=== PATIENT | male | born 1980 | race Caucasian/White ===

== ENCOUNTER 2023-11-17 01:05 | Emergency (ER) | payer BC, OTHER, SELFPAY ==
[2023-11-17 01:09] VITALS: BP 182/86; PULSE 95; TEMP 36.8; O2SAT 95; BMI 39.3
--- NOTE | 2023-11-17 01:17 | PC.NURSE ---
Pain to left arm from elbow to fingers, denies injury.
--- NOTE | 2023-11-17 01:49 | ED.GENADUL1 ---
HPI HPI - General Adult General Chief complaint: Extremity Injury, Lower Stated complaint: LT HAND/ARM PAIN Time Seen by Provider: 11/17/23 01:10 Source: patient Mode of arrival: walk-in Limitations: no limitations History of Present Illness HPI narrative: 43-year-old male to the emergency department chief complaint of pain in his left arm that radiates down to his hand and numbness in the tips of a few of his fingers. Symptoms started a week ago after he was pulling a heavy weight in his arm at work. No falls or injuries. No weakness. Was keeping him up tonight so he decided to come get it checked out. Related Data Home Medications ?Medication ?Instructions ?Recorded ?Confirmed No Known Home Medications 11/17/23 11/17/23 Allergies Allergy/AdvReac Type Severity Reaction Status Date / Time No Known Drug Allergies Allergy Verified 11/17/23 01:13 Opioid HPI Opioid Management Most Recent Opioid Data: No Data to Display Review of Systems ROS Status of ROS 10 or more systems reviewed and unremarkable except as noted in history and below Exam Narrative Exam Narrative: VITALS: I have reviewed the triage vital signs. GENERAL: Well developed, well appearing adult in no acute distress. NEURO: Alert and oriented. Moves all extremities. Face is symmetric and expressive. EYES: PERRL. No scleral icterus or conjunctival injection. No discharge. HENT: Normocephalic, atraumatic. Hearing is grossly intact. Nares grossly patent and without discharge. Mucous membranes moist. NECK: No JVD. Patient moves neck without restriction. Left upper Extremity: Radial Pulse is intact. Limb is similar color and temperature to the contralateral limb. Compartments soft. No edema. No ecchymosis. No laceration. No abrasion. No deformity. No bony tenderness. [employer] Specialist strength, finger abduction/adduction, wrist extension intact. Subjective sensation change to the third fourth and fifth fingertips. normal ROM of wrist, elbow, shoulder. SKIN: Warm and dry. Normal turgor. No rash or lesions appreciated. PSYCH: Mood, affect, and interaction is appropriate to the setting. Constitutional Vital Signs, click to edit/add: Last Vital Signs Temp 98.2 F 11/17/23 01:09 Pulse 95 H 11/17/23 01:09 Resp 18 11/17/23 01:09 BP 182/86 H 11/17/23 01:09 Pulse Ox 95 11/17/23 01:09 O2 Del Method Room Air 11/17/23 01:09 Course Vital Signs Vital signs: Vital Signs Temperature 98.2 F 11/17/23 01:09 Pulse Rate 95 H 11/17/23 01:09 Respiratory Rate 18 11/17/23 01:09 Blood Pressure 182/86 H 11/17/23 01:09 Pulse Oximetry 95 11/17/23 01:09 Oxygen Delivery Method Room Air 11/17/23 01:09 Temperature 98.2 F 11/17/23 01:09 Pulse Rate 95 H 11/17/23 01:09 Respiratory Rate 18 11/17/23 01:09 Blood Pressure 182/86 H 11/17/23 01:09 Pulse Oximetry 95 11/17/23 01:09 Oxygen Delivery Method Room Air 11/17/23 01:09 Medical Decision Making MDM Narrative Medical decision making narrative: Well-appearing male to the emergency department with chief complaint of 1 week of tingling in his third fourth and fifth fingertips as well as some pain radiating down his forearm. Happened after lifting at work something heavy. No other focal neurologic deficits. History and exam point to a peripheral lesion likely ulnar in nature. Discussed rest, will give a dose of Toradol here for pain. Kenalog injection reduce inflammation. Orthopedic referral. Patient agrees with this plan. Return precautions were discussed. All questions were answered. The patient was discharged home. Discharge Plan Discharge Stand Alone Forms: Work/School Release, Portal Instructions Chief Complaint: Extremity Injury, Lower Clinical Impression: Radicular pain in left arm Patient Disposition: Home, Self-Care Time of Disposition Decision: 01:49 Condition: Good Mode of Transportation: Private Vehicle Prescriptions / Home Meds: No Action No Known Home Medications Print Language: Slovak Instructions: Paresthesia (ED) Additional Instructions: Call the office of your primary care doctor to arrange for follow-up within the above-stated timeframe. Your ED visit was focused on your acute issue and does not replace primary care. You should review your labs, imaging, and diagnoses from this ED visit with your primary care physician. There may be non-emergent/ incidental findings that need further evaluation. You should review your vital signs including blood pressure with your PCP. If you were prescribed medications you should discuss possible side-effects and drug interactions with your pharmacist. Call 911 or go to the nearest Emergency Department if you develop any new or worsening symptoms. Referrals: Physician,Non-Staff, [Primary Care Provider] - 1 week Efra Elise MD [Physician] - 1 week
[2023-11-17] MEDS: KETOROLAC TROMETHAMINE 30 MG/ML VIAL 15 MG IM (02:05)
[2023-11-17] MEDS: TRIAMCINOLONE ACETONIDE 40 MG/ML VIAL IM (02:05)
== END 2023-11-17 02:17 | disposition home or self-care (01) ==
PROVIDERS: Emergency Provider Student in an Organized Health Care Education/Training Program
DX: M79.602 Pain in left arm (principal); R20.2 Paresthesia of skin
CPT/HCPCS: 96372; 99284; J1885; J3301

== ENCOUNTER 2023-11-21 21:55 | Emergency (ER) | payer OTHER, BC, SELFPAY ==
--- OUTSIDE RECORDS SUMMARY | 2023-11-21 22:03 | XMS_ITS | CCD ---
Author Organization [facility] Inform ion Partnership [facility] Care Team Providers Care Attorney Lawyer Name Role Phone MILAN TRAN Attending Unavailab Arabella Torres Attending Unava Milan Arora Attending Unavailable DR MARCOS NONE LISTED Primary Care Unavaila ble KELLIE KHALIL Consulting Unavailable KELLIE KHALIL Attending Unavailable KELLIE KHALIL Admitting Unavailable Meño Huerta Consulting Unavailable Allergies Allergy Classification Reported Allergen(s) Allergy Type Date of Onset Reaction(s) Facility (1 source) No Known Medication Allergies; Translations: [No Known Medication Allergies] Propensity to adverse reactions to drug (disorder) [facility] Repository Problems Active Problems Problem Classification Problem Date Documented Da te Episodic/Chronic Other upper respiratory infections (1 source) Acute upper respiratory infection, unspecified; Translations: [ACUTE UP RESPIRATORY INFECTION UNS] Onset: 08-06-2021 Episodic Substance-related disorders (1 source) Nicotine dependence, cigarettes, uncomplicated; Translations: [NICOTINE DEPEND CIGARETTES UNCOMP] Onset: 08-06-2021 Chronic Unclassified (2 sources) COUGH, UNSPECIFIED; Translations: [COUGH, UNSPECIFIED] Onset: 08-06-2021 Unclassified (1 source) CONTACT W/AND (SUSP) EXPOS COVID-19; Translations: [CONTACT W/AND (SUSP) EXPOS COVID-19] Onset: 08-06-2021 Past or Other Problems Problem Classification Problem Date Documented Da te Episodic/Chronic Unclassified (1 source) COUGH, UNSPECIFIED; Translations: [COUGH, UNSPECIFIED] Onset: 08-02-2021 Results Test Name Value Interpretation Reference Range Facility CBC AUTO DIFFon 08-02-2021 BASO # 0.1 103/ul Normal 0.0-0.1 [facility] Comment on above: Performed By: #### C BC #### [facility] [address] [place] [address] Dr. Joceline Rosales Basophils/100 WBC (Bld) 0.7 % Normal 0.2-2.0 [facility] Comment on above: Performed By: #### C BC #### [facility] [address] [place] [address] Dr. Joceline Rosales EO # 0.2 103/ul Normal 0.0-0.7 [facility] Comment on above: Performed By: #### C BC #### [facility] [address] [place] [address] Dr. Joceline Rosales Eosinophils/100 WBC (Bld) 1.7 % Normal 0.9-7.0 [facility] Comment on above: Performed By: #### C BC #### [facility] [address] [place] [address] Dr. Joceline Rosales Erythrocyte distribution width (RBC) [Ratio] 12.5 % Normal 11.0-15.0 [facility] Comment on above: Performed By: #### C BC #### [facility] [address] [place] [address] Dr. Joceline Rosales Hematocrit (Bld) [Volume fraction] 45.0 % Normal 42.0-54.0 [facility] Comment on above: Performed By: #### C BC #### [facility] [address] [place] [address] Dr. Joceline Rosales Hemoglobin (Bld) [Mass/Vol] 15.2 g/dL Normal 14.0-18.0 [facility] Comment on above: Performed By: #### C BC #### [facility] [address] [place] [address] Dr. Joceline Rosales IG # 0.01 10e3/ul Normal 0.00-0.03 [facility] Comment on above: Performed By: #### C BC #### [facility] [address] [place] [address] Dr. Joceline Rosales IG % 0.1 % Normal 0.0-0.5 [facility] Comment on above: Performed By: #### C BC #### [facility] [address] [place] [address] Dr. Joceline Rosales LYMPH # 1.6 103/ul Normal 1.2-3.8 [facility] Comment on above: Performed By: #### C BC #### [facility] [address] [place] [address] Dr. Joceline Rosales Lymphocytes/100 WBC (Bld) 18.7 % Critically low 20.5-60.0 [facility] Comment on above: Performed By: #### C BC #### [facility] [address] [place] [address] Dr. Joceline Rosales MANUAL DIFF REQ NO Normal [facility] Comment on above: Performed By: #### C BC #### [facility] [address] [place] [address] Dr. Joceline Rosales MCH (RBC) [Entitic mass] 30.3 pg Normal 25.9-34.0 [facility] Comment on above: Performed By: #### C BC #### [facility] [address] [place] [address] Dr. Joceline Rosales MCHC (RBC) [Mass/Vol] 33.8 g/dL Normal 29.9-35.2 [facility] Comment on above: Performed By: #### C BC #### [facility] [address] [place] [address] Dr. Joceline Rosales MCV (RBC) [Entitic vol] 89.6 fL Normal 80.0-94.0 [facility] Comment on above: Performed By: #### C BC #### [facility] [address] [place] [address] Dr. Joceline Rosales MONO # 1.1 103/ul Critically high 0.3-0.8 [facility] Comment on above: Performed By: #### C BC #### [facility] [address] [place] [address] Dr. Joceline Rosales Monocytes/100 WBC (Bld) 12.2 % Critically high 1.7-12.0 [facility] Comment on above: Performed By: #### C BC #### [facility] [address] [place] [address] Dr. Joceline Rosales NEUT # 5.7 103/ul Normal 1.4-6.5 [facility] Comment on above: Performed By: #### C BC #### [facility] [address] [place] [address] Dr. Joceline Rosales Neutrophils/100 WBC (Bld) 66.6 % Normal 43.0-75.0 [facility] Comment on above: Performed By: #### C BC #### [facility] [address] [place] [address] Dr. Joceline Rosales Platelet mean volume (Bld) [Entitic vol] 11.0 fL Normal 9.5-13.5 [facility] Comment on above: Performed By: #### C BC #### [facility] [address] [place] [address] Dr. Joceline Rosales PLT 214 103/ul Normal 150-450 [facility] Comment on above: Performed By: #### C BC #### [facility] [address] [place] [address] Dr. Joceline Rosales RBC 5.02 106/ul Normal 4.70-6.10 [facility] Comment on above: Performed By: #### C BC #### [facility] [address] [place] [address] Dr. Joceline Rosales WBC 8.6 103/ul Normal 4.0-11.0 [facility] Comment on above: Performed By: #### C BC #### [facility] [address] [place] [address] Dr. Joceline Rosales [facility]15 SARS-CoV-2 (COVID-19) RNA FAHAD+probe Ql (Unsp spec) Not detected Normal NOT DETECTED [facility] Comment on above: Result Comment: This test is not yet approved or cleared by the [place] FDA. When there are no FDA-approved or cleared tests available, and other criteria are met, FDA can make tests available under an emergency access mechanism called an Emergency Use Authorization (EUA). The EUA for this test is supported by the [facility] Provider of Health and Human Service's (HHS's) declaration that circumstances exist to justify the emergency use of in vitro diagnostics for the detection and/or diagnosis of the virus that causes COVID-19. This EUA will remain in effect (meaning this test can be used) for the duration of the COVID-19 declaration justifying emergency of IVDs, unless it is terminated or revoked by FDA (after which the test may no longer be used). When diagnostic testing is negative, the possibility of a false negative should be considered in the context of a patient's recent exposures and the presence of clinical signs and symptoms consistent with SARS-CoV-2. Performed By: #### C VDTB #### [facility] [address] [place] [address] Dr. Joceline Rosales PROF CHEM 8 (BAS METB)on Anion gap [Moles/Vol] 11.2 mmol/L Normal [facility] Comment on above: Performed By: #### B MP #### [facility] [address] [place] [address] Dr. Joceline Rosales Calcium [Mass/Vol] 8.5 mg/dL Normal 8.5-10.1 [facility] Comment on above: Performed By: #### B MP #### [facility] [address] [place] [address] Dr. Joceline Rosales Chloride [Moles/Vol] 107 mmol/L Normal 98-107 [facility] Comment on above: Performed By: #### B MP #### [facility] [address] [place] [address] Dr. Joceline Rosales CO2 [Moles/Vol] 24.9 mmol/L Normal 21.0-32.0 [facility] Comment on above: Performed By: #### B MP #### [facility] [address] [place] [address] Dr. Joceline Rosales Creatinine [Mass/Vol] 1.13 mg/dL Normal 0.70-1.30 [facility] Comment on above: Performed By: #### B MP #### [facility] [address] [place] [address] Dr. Joceline Rosales EGFR-AF PAKISTANI >60 Normal >=60 [facility] Comment on above: Performed By: #### B MP #### [facility] [address] [address] [address] Joceline Rosales EGFR-NON AF PAKISTANI >60 Normal >=60 [facility] Comment on above: Performed By: #### B MP #### [facility] [address] [address] [address] Joceline Rosales Glucose [Mass/Vol] 119 mg/dL Critically high 74-106 [facility] Comment on above: Performed By: #### B MP #### [facility] [address] [address] [address] Joceline Rosales Potassium [Moles/Vol] 4.1 mmol/L Normal 3.5-5.1 [facility] Comment on above: Performed By: #### B MP #### [facility] [address] [address] [address] Joceline Rosales Sodium [Moles/Vol] 139 mmol/L Normal 136-145 [facility] Comment on above: Performed By: #### B MP #### [facility] [address] [address] [address] Joceline Rosales Urea nitrogen [Mass/Vol] 10.0 mg/dL Normal 7.0-18.0 [facility] Comment on above: Performed By: #### B MP #### [facility] [address] [address] [address] Joceline Rosales Urea nitrogen/Creatinin e [Mass ratio] 8.8 mg/mg Normal [facility] Comment on above: Performed By: #### B MP #### [facility] [address] [address] [address] Joceline Rosales XR CHEST 1 Von 08-02-2021 XR CHEST 1 V EXAMINATION: XR CHES T 1 V HISTORY: Cough COMPARISON: None. TECHNIQUE: Portable chest FINDINGS: The lung parenchyma is free of consolidation or infiltrate. No pneumothorax or pleural effusion. The cardiac, mediastinal and hilar contours are normal. The visualized osseous structures exhibit no gross abnormality. IMPRESSION: No acute cardiopulmonary abnormality. Electronically authenticated by: MEÑO HUERTA Date: 2021-08-02 18:27 Normal [facility] ED Clinical Summaryon 2018 ED Clinical Summary [facility] [address] [place], [place] [id number] ED Clinical Summary Person Information Name: Armani Stevens/Henry Age: 38 Years : 1980 Sex: Male PCP: Marital Status: Race: White Ethnicity: Not or Language: Bruneian Visit Reason: Ankle pain-swelling; Extremities pain - swelling Acuity: 4 Enc Type: Emergency Med Service: Emergency Medicine Arrival: 11/22/2018 23:21:46 Discharge: 11/23/2018 00:39:00 LOS: 000 01:18 Checkin: 11/22/2018 23:21:46 Checkout: 11/23/2018 00:39:00 Dispo Type: Home or Self Care Address: [address] [facility] [address] Provider Notes: Diagnosis: 1:Right ankle injury; 2:Right ankle sprain Problems Active No Chronic Problems Smoking Status: Smoking Status 10 or more cigarettes (1/2 pack or more)/day in last 30 days Functional Status: Sensory Deficits: History of Falls: Mobility Assistance Prior to Admission: ADLs: Current Level of Assistance for Self-Care/Mobility: Cognitive Status: Allergies No Known Medication Allergies Laboratory or Other Results This Visit (last charted value for your 11/22/2018 visit) Diagnostic Radiology 11/23/2018 0:03 AM XR Ankle 3 Views Right: XR Ankle 3 Views Right Measurements: Height: Weight: Blood Pressure: /88 mmHg BMI: Procedures No Procedures Documented Immunizations No Immunizations Documented This Visit Final Med List: No Medications Documented Care Team Members: Attending Physician: Arabella Edwards CNP Consulting Physician: Referring Physician: Provider Role Assigned Unassigned Arabella Edwards CNP ED MidLevel 11/22/2018 23:24:22 Follow up: With: Address: When: [facility] Physical therapist in [place], [place] Comments: Follow up with Orthopedics of symptoms persist With: Address: When: Need a Doctor? Call the physician's referral line @ [phone] With: Address: When: Follow-up with your primary care provider in 2 to 3 days Discharge Orders: Air Cast ([facility]) 11/23/18 0:18:00 EDT, as needed, Right ankle injury Discharge Patient 11/23/18 0:31:00 EDT, Discharge to Home, Self Patient Education Information: ANKLE SPRAIN (Adult); Treating?Strains and Sprains [facility] Poison Help line: . [facility] Hotline: [place] Tobacco Quit Line: [facility] ([place], [place]) [address]: [phone] [facility] ([place], [place]) [address]: [phone] [facility] [address] [facility]. [place], [place]: [phone] Normal [facility] ED Note-Physicianon 11-24-19 ED Note-Physician Chief Complaint I tripped over my forks at work and twisted my right ankle History of Present Illness Patient is a 38-year-old male presents to ED for evaluation of right ankle pain. Patient presently was at work earlier today, when he tripped over a forklift, causing him to twist his right ankle and fall onto his right side. Patient denies head or neck injury, dizziness or LOC at the time of injury. Patient voiced concern as he fractured right ankle when he was 18 years old. Patient denies other injuries or concerns. Patient denies chronic medical condition. Review of Systems As reviewed in the HPI. All other systems reviewed are negative or normal. Physical Exam HEAD: [normocephalic, midface stable, no visible bleeding] NECK: [no midline vertebral tenderness to palpation, no hematoma or signs of soft tissue injury] PULMONARY: [lungs clear to auscultation, no asymmetry, even and unlabored, no accessory muscle use, no chest wall tenderness] CARDIOVASCULAR: [good peripheral perfusion, regular rate and rhythm] GASTROINTESTINAL: [soft, non-tender, no signs of abdominal wall trauma] MUSCULOSKELETAL: [normal gross range of motion of extremities, no deformity, no vertebral tenderness to palpation. Lateral aspect of right ankle tender to palpation, there is mild swelling, no crepitus and exam, no laxity on exam, limited range of motion due to pain, sternal resistance and strength distally, normal capillary refill, normal pedal pulse, sensation intact distally] BACK: [No midline thoracic or lumbar spine tenderness] LYMPHATICS: [no palpable lymphadenopathy, no edema] NEUROLOGIC: [GCS 15, no focal abnormality] PSYCHIATRIC: [linear thought process, normal mood/affect] Vitals & Measurements T: 37.1 ?C (Oral) RR: 16 BP: 128/88 SpO2: 96% Additional Vitals Peripheral Pulse Rate: 110 bpm High Procedure No qualifying data available. ASA Documentation Medical Decision Making XR Ankle 3 Views Right No acute fractures or dislocations. On evaluation, patient is alert, nontoxic in appearance, and not in acute distress. Patient is neurovascularly intact on exam. Patient is provided with Villarreal wrap, air cast, and crutches to use as needed. He may follow up with orthopedics if symptoms persist, contact information provided. Advised to take Tylenol and/or ibuprofen as needed for pain. Advised, ice, compression, and elevation treatment at home advised. Follow-up with primary care provider in 3-5 days. Patient advised to return to the ED for new concerning symptoms or if symptoms worsen despite outpatient treatment. The results of pertinent diagnostic studies and exam findings were discussed. The patient?s provisional diagnosis and plan of care were discussed with the patient. The patient expressed understanding of the diagnosis and plan. The nurse was instructed to provide written instructions and appropriate follow-up information. The patient understands their need and responsibility to obtain additional follow-up as instructed. The risks of medications administered and prescribed were discussed with the patient. Reexamination/Reevaluat ion Patient is alert, not in acute distress and hemodynamically stable at discharge. Assessment/Plan 1. Right ankle injury Ordered: Air Cast ([facility]) 2. Right ankle sprain Ordered: Air Cast ([facility]) Orders: Discharge Patient Problem List/Past Medical History Ongoing No chronic problems Historical No qualifying data Procedure/Surgical History denies Medications Home No active home medications Inpatient No active inpatient medications Prescriptions No active Prescriptions Allergies No Known Medication Allergies Social History Alcohol Past Never Substance Abuse Denies All Tobacco 10 or more cigarettes (1/2 pack or more)/day in last 30 days Use:. 10 or more cigarettes (1/2 pack or more)/day in last 30 days Use:. 5-9 cigarettes (between 1/4 to 1/2 pack)/day in last 30 days Use:. 10 or more cigarettes (1/2 pack or more)/day in last 30 days Use:. Current every day smoker, Cigarettes, 6 per day. Cigarettes Family History Family history is unknown Diagnostic Results XRay XR Ankle 3 Views Right 11/23/18 00:12:33 IMPRESSION: No acute fractures or dislocations. Signed By: Claudy Sigala MD Computerized Tomagraphy No qualifying data available (CT) Ultrasound No qualifying data available (Ultrasound) Magnetic Resonance Imaging No qualifying data available (MRI) Electronically signed by ___ EdwardsArabella reid CNP 11/23/18 02:14 EDT Normal [facility] XR Ankle 3 Views Righton XR Ankle 3 Views Right CLINICAL HISTORY: Work injury, pain, limited range of motion. RIGHT ANKLE: 11/23/2018. COMPARISON: None. FINDINGS: 3 views are provided which demonstrate normally aligned ankle mortise without definite fractures or dislocations. Base of the fifth metatarsal appears intact. There is no significant soft tissue swelling, calcifications or radiopaque foreign bodies. There are minimal enthesophytes at the insertion site of the plantar aponeurosis, Achilles tendon. IMPRESSION: No acute fractures or dislocations. Final Dictated by: Claudy Sigala MD Dictated DT/TM: 11/23/2018 0:12 am Signed by: Claudy Sigala MD Signed (Electronic Signature): 11/23/2018 0:21 am Transcribed DT/TM: 11/23/2018 0:20 (If Report Is Signed, Electronically Signed in Other Vendor System) Normal [facility] .eGFRon 10-23-2018 eGFR AA >60 Normal >=60 [facility] Comment on above: Result Comment: Resu lt = 0-14.9 mL/min/1.73 m2 Kidney failure or Dialysis Result = 15-29 mL/min/1.73 m2 Severe decrease in GFR Result = 30-59 mL/min/1.73 m2 Moderate decrease in GFR Result >= 60 mL/min/1.73 m2 Normal or increased GFR Performed By: #### E GFR ####[address] [address] eGFR Non-AA >60 Normal >=60 [facility] Comment on above: Result Comment: Resu lt = 0-14.9 mL/min/1.73 m2 Kidney failure or Dialysis Result = 15-29 mL/min/1.73 m2 Severe decrease in GFR Result = 30-59 mL/min/1.73 m2 Moderate decrease in GFR Result >= 60 mL/min/1.73 m2 Normal or increased GFR Chronic kidney disease is defined as either kidney damage or GFR < 60 mL/min/1.73 m2 for >= 3 months. Kidney damage is defined as pathologic abnormalities or markers of damage including abnormalities in blood or urine tests or imaging studies. This GFR is NOT used for medication dosing. Performed By: #### E GFR ####[address] [address] AMI 2Hron 10-23-2018 2 Hour Myoglobin 24.0 ng/mL Normal 17.4-105.7 [facility] Comment on above: Performed By: #### A MI2 ####[address] [address] Troponin I.cardiac [Mass/Vol] ng/mL Normal 0.00-0.03 [facility] Comment on above: Result Comment: An i ncreased Troponin-I value, in the absence of myocardial ischemia, may indicate other etiologies of cardiac damage. Performed By: #### A MI2 ####[address] [address] AMI Initon 10-23-2018 Initial Myoglobin 29.0 ng/mL Normal 17.4-105.7 [facility] Comment on above: Performed By: #### A MI1 ####[address] [address] Troponin I.cardiac [Mass/Vol] ng/mL Normal 0.00-0.03 [facility] Comment on above: Result Comment: An i ncreased Troponin-I value, in the absence of myocardial ischemia, may indicate other etiologies of cardiac damage. Performed By: #### A MI1 ####[address] [address] Basic Metabolic Profileon Anion gap [Moles/Vol] 13 mmol/L Normal 7-17 [facility] Comment on above: Performed By: #### C [id number] ####[address] [address] Calcium [Mass/Vol] 8.9 mg/dL Normal 8.5-10.3 [facility] Comment on above: Performed By: #### C [id number] ####[address] [address] Chloride [Moles/Vol] 104 mmol/L Normal 98-110 [facility] Comment on above: Performed By: #### C [id number] ####[address] [address] CO2 [Moles/Vol] 22 mmol/L Normal 22-32 [facility] Comment on above: Performed By: #### C [id number] ####[address] [address] Creatinine [Mass/Vol] 1.13 mg/dL Normal 0.61-1.24 [facility] Comment on above: Performed By: #### C [id number] ####[address] [address] Glucose [Mass/Vol] 95 mg/dL Normal 74-118 [facility] Comment on above: Performed By: #### C [id number] ####[address] [address] Potassium [Moles/Vol] 3.9 mmol/L Normal 3.4-4.8 [facility] Comment on above: Performed By: #### C [id number] ####[address] [address] Sodium [Moles/Vol] 135 mmol/L Normal 133-142 [facility] Comment on above: Performed By: #### C [id number] ####[address] [address] Urea nitrogen [Mass/Vol] 15 mg/dL Normal 8-26 [facility] Comment on above: Performed By: #### C [id number] ####[address] [address] Urea nitrogen/Creatinin e [Mass ratio] 13.3 mg/mg Normal 10.0-20.0 [facility] Comment on above: Performed By: #### C [id number] ####[address] [address] CBC w/ Diffon 10-23-2018 Erythrocyte distribution width (RBC) [Ratio] 12.9 % Normal 11.6-14.8 [facility] Comment on above: Performed By: #### C BC ####[address] [address] Hematocrit (Bld) [Volume fraction] 43.0 % Normal 41.0-53.0 [facility] Comment on above: Performed By: #### C BC ####[address] [address] Hemoglobin (Bld) [Mass/Vol] 15.2 g/dL Normal 13.5-17.5 [facility] Comment on above: Performed By: #### C BC ####[address] [address] MCH (RBC) [Entitic mass] 31.1 pg Normal 27.0-35.0 [facility] Comment on above: Performed By: #### C BC ####[address] [address] MCHC (RBC) [Mass/Vol] 35.3 % Normal 31.0-37.0 [facility] Comment on above: Performed By: #### C BC ####[address] [address] MCV (RBC) [Entitic vol] 88.1 fL Normal 80.0-100.0 [facility] Comment on above: Performed By: #### C BC ####[address] [address] Platelet mean volume (Bld) [Entitic vol] 8.9 fL Normal 6.7-10.6 [facility] Comment on above: Performed By: #### C BC ####[address] [address] Platelets (Bld) [#/Vol] 220 x10*3/mcL Normal 150-350 [facility] Comment on above: Performed By: #### C BC ####[address] [address] RBC (Bld) [#/Vol] 4.88 x10*6/mcL Normal 4.30-5.80 [facility] Comment on above: Performed By: #### C BC ####[address] [address] WBC (Bld) [#/Vol] 8.8 x10*3/mcL Normal 4.5-11.0 [facility] Comment on above: Performed By: #### C BC ####[address] [address] D-Dimeron 10-23-2018 Fibrin D-dimer FEU IA (Bld) [Mass/Vol] 0.27 mg/L feu Normal 0.00-0.49 [facility] Comment on above: Result Comment: Resu lts of the D-Dimer test should always be interpreted in conjunction with the patient's medical history, clinical presentation, and other findings. Results <0.5 mg/L are considered NEGATIVE for VTE. Results >= 0.5 mg/L require further clinical evaluation. Levels of triglyceride up to 600 mg/dl do not interfere with this D-Dimer assay. Performed By: #### D KAY ####[address] [address] Diff Autoon 10-23-2018 Baso Absolute 0.1 x10*3/mcL Normal 0.0-0.2 [facility] Comment on above: Performed By: #### . Automated Diff #### [address] [address] Basophils/100 WBC (Bld) 0.8 % Normal 0.0-1.2 [facility] Comment on above: Performed By: #### . Automated Diff #### [address] [address] Eos Absolute 0.3 x10*3/mcL Normal 0.0-0.4 [facility] Comment on above: Performed By: #### . Automated Diff #### [address] [address] Eosinophils/100 WBC (Bld) 3.7 % Normal 0.0-6.1 [facility] Comment on above: Performed By: #### . Automated Diff #### [address] [address] Lymphocytes (Bld) [#/Vol] 2.6 x10*3/mcL Normal 1.0-4.8 [facility] Comment on above: Performed By: #### . Automated Diff #### [address] [address] Lymphocytes/100 WBC (Bld) 29.3 % Normal 27.2-40.8 [facility] Comment on above: Performed By: #### . Automated Diff #### [address] [address] Bell Absolute 0.7 x10*3/mcL Normal 0.3-1.1 [facility] Comment on above: Performed By: #### . Automated Diff #### [address] [address] Monocytes/100 WBC (Bld) 7.7 % Normal 4.7-13.9 [facility] Comment on above: Performed By: #### . Automated Diff #### [address] [address] Neutro Absolute 5.2 x10*3/mcL Normal 1.8-7.7 [facility] Comment on above: Performed By: #### . Automated Diff #### [address] [id number] Neutro Auto 58.5 % Normal 47.2-70.8 [facility] Comment on above: Performed By: #### . Automated Diff #### [address] [id number] ED Clinical Summaryon 2018 [place] [address] ED Clinical Summary Person Information Name: Armani Stevens [place]/[facility] Age: 38 Years : 1980 Sex: Male PCP: Marital Status: Race: White Ethnicity: Not or Language: Bruneian Visit Reason: Chest pain; Chest pain - Cardiac Acuity: 2 Enc Type: Emergency Med Service: Emergency Medicine Arrival: 10/22/2018 23:22:20 Discharge: 10/23/2018 02:21:00 LOS: 000 02:59 Checkin: 10/22/2018 23:22:20 Checkout: 10/23/2018 02:21:00 Dispo Type: Home or Self Care Address: [address] [id number] Provider Notes: Diagnosis: 1:Acute chest pain; 2:Pleurisy Problems Active No Chronic Problems Smoking Status: Smoking Status 10 or more cigarettes (1/2 pack or more)/day in last 30 days Functional Status: Sensory Deficits: History of Falls: Mobility Assistance Prior to Admission: ADLs: Current Level of Assistance for Self-Care/Mobility: Cognitive Status: Allergies No Known Medication Allergies Laboratory or Other Results This Visit (last charted value for your 10/22/2018 visit) Hematology 10/22/2018 11:50 PM WBC: 8.8 x10 RBC: 4.88 x10 Neutro Auto: 58.5 % -- Normal range between ( 47.2 and 70.8 ) Lymph Auto: 29.3 % -- Normal range between ( 27.2 and 40.8 ) Bell Auto: 7.7 % -- Normal range between ( 4.7 and 13.9 ) Eos Auto: 3.7 % -- Normal range between ( 0.0 and 6.1 ) Basophil Auto: 0.8 % -- Normal range between ( 0.0 and 1.2 ) Baso Absolute: 0.1 x10 MCV: 88.1 fL -- Normal range between ( 80.0 and 100.0 ) MCHC: 35.3 % -- Normal range between ( 31.0 and 37.0 ) Lymph Absolute: 2.6 x10 Hct: 43.0 % -- Normal range between ( 41.0 and 53.0 ) Bell Absolute: 0.7 x10 MCH: 31.1 pg -- Normal range between ( 27.0 and 35.0 ) Neutro Absolute: 5.2 x10 Hgb: 15.2 g/dL -- Normal range between ( 13.5 and 17.5 ) Mean Platelet Volume: 8.9 fL -- Normal range between ( 6.7 and 10.6 ) Platelet: 220 x10 Eos Absolute: 0.3 x10 RDW: 12.9 % -- Normal range between ( 11.6 and 14.8 ) Coagulation 10/22/2018 11:50 PM PT: 9.8 seconds -- Normal range between ( 9.2 and 11.7 ) INR: 0.9 ratio PTT: 24.3 seconds -- Normal range between ( 20.6 and 28.0 ) D-Dimer: 0.27 mg/L feu -- Normal range between ( 0.00 and 0.49 ) Chemistry 10/23/2018 1:12 AM 2 Hour Troponin: <0.03 ng/mL -- Normal range between ( 0.00 and 0.03 ) 2 Hour Myoglobin: 24.0 ng/mL -- Normal range between ( 17.4 and 105.7 ) 10/22/2018 11:50 PM Creatinine Lvl: 1.13 mg/dL -- Normal range between ( 0.61 and 1.24 ) BUN: 15 mg/dL -- Normal range between ( 8 and 26 ) Glucose Lvl: 95 mg/dL -- Normal range between ( 74 and 118 ) Potassium Lvl: 3.9 mmol/L -- Normal range between ( 3.4 and 4.8 ) AST: 30 IU/L -- Normal range between ( 15 and 41 ) ALT: 44 IU/L -- Normal range between ( 17 and 63 ) Sodium Lvl: 135 mmol/L -- Normal range between ( 133 and 142 ) Lipase Lvl: 46 IU/L -- Normal range between ( 22 and 51 ) Bili Indirect: 0.2 mg/dL -- Normal range between ( 0.0 and 1.0 ) Calcium Lvl: 8.9 mg/dL -- Normal range between ( 8.5 and 10.3 ) Albumin Lvl: 3.8 g/dL -- Normal range between ( 3.2 and 4.9 ) Total Protein: 6.6 g/dL -- Normal range between ( 6.5 and 8.1 ) Bili Total: 0.3 mg/dL -- Normal range between ( 0.3 and 1.2 ) Alk Phos: 86 IU/L -- Normal range between ( 32 and 91 ) Bili Direct: 0.1 mg/dL -- Normal range between ( 0.1 and 0.5 ) Chloride: 104 mmol/L -- Normal range between ( 98 and 110 ) CO2: 22 mmol/L -- Normal range between ( 22 and 32 ) Anion Gap: 13 -- Normal range between ( 7 and 17 ) eGFR Non-AA: >60 mL/min/1.73m? eGFR AA: >60 mL/min/1.73m? BUN Crea Ratio: 13.3 -- Normal range between ( 10.0 and 20.0 ) Initial Troponin: <0.03 ng/mL -- Normal range between ( 0.00 and 0.03 ) Initial Myoglobin: 29.0 ng/mL -- Normal range between ( 17.4 and 105.7 ) Diagnostic Radiology 10/22/2018 11:49 PM XR Chest 1 View: XR Chest 1 View Measurements: Height: Weight: Blood Pressure: /85 mmHg BMI: Procedures No Procedures Documented Immunizations No Immunizations Documented This Visit Final Med List: No Medications Documented Care Team Members: Attending Physician: Milan Tavarez MD Consulting Physician: Referring Physician: Provider Role Assigned Unassigned Jair Marquez ED Nurse 10/22/2018 23:30:05 Milan Tavarez MD ED Provider 10/22/2018 23:41:12 Follow up: With: Address: When: Your Primary Care Physician Comments: Please call your primary care physician and schedule follow-up within the next 24-48 hours Please return to the emergency department immediately if pain returns Please take daily aspirin until follow-up, avoid strenuous exercise or exertion With: Address: When: This Emergency Department Comments: If symptoms worsen Discharge Orders: Discharge Patient 10/23/18 2:16:00 EDT, Discharge to Home, Self Patient Education Information: CHEST PAIN, Uncertain Cause; PLEURISY [facility] Poison Help line: . [facility] Hotline: [place] Tobacco Quit Line: [place], [place]) [address]: [phone] [place], [place]) [address]: [phone] [facility] [address] [place], [place]: [phone] [facility] ED Note-Physicianon 10-24-19 ED Note-Physician Chief Complaint Chest pain that onset 4.5 hours ago while at work. Pt denies any cardiac hx but reports family hx History of Present Illness Patient is a 38 year male presents for evaluation of chest discomfort. 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 Initially, patient states exacerbating factors include deep inspiration. He denies any history of cardiac disease. He denies any history of DVT or pulmonary embolism. Denies any LE pain or swelling. He denies any recent infectious symptoms including fevers or chills. Over the preceding to 3 months, patient has not had any sort of chest discomfort including exertional chest pain, dyspnea, diaphoresis. Patient denies any palpitations. Respiratory, patient is a smoker. He denies any history of insulin-dependent diabetes, hyperlipidemia, hypertension. Patient does have a family history of coronary artery disease in his father. Review of Systems GENERAL: [Negative for weakness, malaise] EYES: [Negative for injury, pain, redness, discharge] ENT: [Negative for injury, pain , sore throat and discharge] NECK: [Negative for injury, pain, swelling, and stiffness] CARDIOVASCULAR: [Positive for chest pain, pleurisy. Negative for palpitations] RESPIRATORY: [Negative for shortness of breath, cough, wheezing, and pleuritic chest pain] ABDOMEN/GI: [Negative for pain, nausea, vomiting] BACK: [Negative for injury or bruising] : [Negative for injury, bleeding, discharge, frequency, hematuria, urgency] MUSCULOSKELETAL: [Negative for arthralgias, injury and deformity] SKIN: [Negative for injury, rash, discoloration] NEURO: [Negative for focal weakness, numbness, tingling, and seizure] Physical Exam CONSTITUTIONAL: [well appearing in no acute distress] SKIN: [Warm, dry, and intact without rash] EYES: [extraocular movements are grossly intact, clear conjunctiva] HENT: [Normocephalic, atraumatic, moist mucus membranes] NECK: [no obvious swelling, normal range of motion] PULMONARY: [normal chest rise and fall, no respiratory distress or stridor CARDIOVASCULAR: [regular rate, distal extremities are warm and well perfused] GASTROINSTESTINAL: [nondistended, non-tender] NEUROLOGIC: [normal speech, moves all extremities] MUSCULOSKELETAL: [No lower extremity edema. Negative Homans test bilaterally. no gross deformities, atraumatic] PSYCHIATRIC: [normal mood and affect] Vitals & Measurements T: 37.0 ?C (Oral) HR: 67 (Monitored) RR: 16 BP: 126/85 SpO2: 97% Additional Vitals Peripheral Pulse Rate: 73 bpm Procedure No qualifying data available. ASA Documentation Medical Decision Making Patient is a 38-year-old male presents for evaluation of chest discomfort. Labs were obtained. 2 sets troponins are both within normal limits. Patient does note pleuritic component to chest discomfort. D-dimer was obtained and is within normal limits. Patient is not hypoxic, tachycardic. Patient has no clinical signs of DVT to the lower extremities. Remainder of labs are unremarkable. Regarding patient's risk factors, patient does have some risk factors including family history, smoking. Patient's heart score is low, less than 3. Options were discussed with patient. Patient was offered admission to hospital for uncontrolled pain, cardiac workup. He is declining. I did advise the patient started daily aspirin, avoid strenuous exercise. He should return immediately to the emergency department if he develops recurrent chest discomfort. Otherwise, NSAIDs at home. He should follow up his primary care physician within 48 hours for reevaluation and to determine need and schedule additional cardiac workup. Assessment/Plan 1. Acute chest pain 2. Pleurisy Orders: Discharge Patient Problem List/Past Medical History Ongoing No chronic problems Historical No qualifying data Procedure/Surgical History denies Medications Home No active home medications Inpatient No active inpatient medications Prescriptions No active Prescriptions Allergies No Known Medication Allergies Social History Alcohol Past Never Substance Abuse Denies All Tobacco 10 or more cigarettes (1/2 pack or more)/day in last 30 days Use:. 5-9 cigarettes (between 1/4 to 1/2 pack)/day in last 30 days Use:. 10 or more cigarettes (1/2 pack or more)/day in last 30 days Use:. Current every day smoker, Cigarettes, 6 per day. Cigarettes Family History Family history is unknown Lab Results Automated Hematology LATEST RESULTS HISTORICAL RESULTS WBC 10/22/18 23:50 8.8 09/20/18 8.7 RBC 10/22/18 23:50 4.88 09/20/18 4.93 Hgb 10/22/18 23:50 15.2 09/20/18 15.4 Hct 10/22/18 23:50 43.0 09/20/18 43.5 MCV 10/22/18 23:50 88.1 09/20/18 88.3 MCH 10/22/18 23:50 31.1 09/20/18 31.2 MCHC 10/22/18 23:50 35.3 09/20/18 35.3 RDW 10/22/18 23:50 12.9 09/20/18 12.9 Platelet 10/22/18 23:50 220 09/20/18 222 Mean Platelet Volume 10/22/18 23:50 8.9 09/20/18 9.5 Neutro Auto 10/22/18 23:50 58.5 09/20/18 57.4 Lymph Auto 10/22/18 23:50 29.3 09/20/18 29.8 Bell Auto 10/22/18 23:50 7.7 09/20/18 7.7 Eos Auto 10/22/18 23:50 3.7 09/20/18 4.4 Basophil Auto 10/22/18 23:50 0.8 09/20/18 0.7 Neutro Absolute 10/22/18 23:50 5.2 09/20/18 5.0 Lymph Absolute 10/22/18 23:50 2.6 09/20/18 2.6 Bell Absolute 10/22/18 23:50 0.7 09/20/18 0.7 Eos Absolute 10/22/18 23:50 0.3 09/20/18 0.4 Baso Absolute 10/22/18 23:50 0.1 09/20/18 0.1 Coagulation LATEST RESULTS PT 10/22/18 23:50 9.8 INR 10/22/18 23:50 0.9 PTT 10/22/18 23:50 24.3 D-Dimer 10/22/18 23:50 0.27 Routine Chemistry LATEST RESULTS HISTORICAL RESULTS Sodium Lvl 10/22/18 23:50 135 09/20/18 136 Potassium Lvl 10/22/18 23:50 3.9 09/20/18 3.7 Chloride 10/22/18 23:50 104 09/20/18 104 CO2 10/22/18 23:50 22 09/20/18 22 Anion Gap 10/22/18 23:50 13 09/20/18 14 Glucose Lvl 10/22/18 23:50 95 09/20/18 104 BUN 10/22/18 23:50 15 09/20/18 15 Creatinine Lvl 10/22/18 23:50 1.13 09/20/18 1.11 eGFR AA 10/22/18 23:50 >60 09/20/18 >60 eGFR Non-AA 10/22/18 23:50 >60 09/20/18 >60 BUN Crea Ratio 10/22/18 23:50 13.3 09/20/18 13.5 Bili Total 10/22/18 23:50 0.3 Bili Direct 10/22/18 23:50 0.1 Bili Indirect 10/22/18 23:50 0.2 Alk Phos 10/22/18 23:50 86 AST 10/22/18 23:50 30 ALT 10/22/18 23:50 44 Total Protein 10/22/18 23:50 6.6 Albumin Lvl 10/22/18 23:50 3.8 Calcium Lvl 10/22/18 23:50 8.9 09/20/18 9.0 Lipase Lvl 10/22/18 23:50 46 Cardiac Isoenzymes LATEST RESULTS Initial Myoglobin 10/22/18 23:50 29.0 Initial Troponin 10/22/18 23:50 <0.03 2 Hour Myoglobin 10/23/18 01:12 24.0 2 Hour Troponin 10/23/18 01:12 <0.03 Diagnostic Results XRay XR Chest 1 View 10/22/18 23:58:37 IMPRESSION: 1. No acute cardiopulmonary abnormality. 2. Low lung volumes. Signed By: Carlos Enrique HENAO, Annalise Kennedy Computerized Tomagraphy No qualifying data available (CT) Ultrasound No qualifying data available (Ultrasound) Magnetic Resonance Imaging No qualifying data available (MRI) Electronically signed by ___ Milan Tavarez MD 10/23/18 07:01 EDT Normal [facility] Hep Func Panelon 10-23-2018 Albumin [Mass/Vol] 3.8 g/dL Normal 3.2-4.9 [facility] Comment on above: Result Comment: [facility] Laboratory updated the methodology used for albumin testing on 10/22/17. Albumin measurement was performed using a bromcresol purple dye-binding assay. Performed By: #### L IVER ####[address] [address] Alk Phos 86 IU/L Normal 32-91 [facility] Comment on above: Performed By: #### L IVER ####[address] [address] ALT [Catalytic activity/Vol] 44 U/L Normal 17-63 [facility] Comment on above: Performed By: #### L IVER ####[address] [place] [address] AST [Catalytic activity/Vol] 30 U/L Normal 15-41 [facility] Comment on above: Performed By: #### L IVER ####[address] [address] Bili Direct 0.1 mg/dL Normal 0.1-0.5 [facility] Comment on above: Performed By: #### L IVER ####[address] [address] Bili Indirect 0.2 mg/dL Normal 0.0-1.0 [facility] Comment on above: Performed By: #### L IVER ####[address] [address] Bili Total 0.3 mg/dL Normal 0.3-1.2 [facility] Comment on above: Performed By: #### L IVER ####[address] [address] Protein [Mass/Vol] 6.6 g/dL Normal 6.5-8.1 [facility] Comment on above: Performed By: #### L IVER ####[address] [address] Lipaseon 10-23-2018 Lipase Lvl 46 IU/L Normal 22-51 [facility] Comment on above: Performed By: #### L IP ####[address] [address] PTon 10-23-2018 INR Coag (PPP) [Relative time] 0.9 {INR} Normal <=3.5 [facility] Comment on above: Result Comment: INR has no normal range. INR Therapeutic range is: 2.0-3.0 (AF, CVA, TIAs, DVT prophylaxis, acute DVT) 2.5-3.5 ([facility] heart valves, recurrent thrombosis/emboli) Performed By: #### P TINR ####[address] [address] PT Coag (PPP) [Time] 9.8 s Normal 9.2-11.7 [facility] Comment on above: Performed By: #### P TINR ####[address] [address] PTTon 10-23-2018 aPTT Coag (Bld) [Time] 24.3 s Normal 20.6-28.0 [facility] Comment on above: Performed By: #### P TT ####[address] [address] XR Chest 1 Viewon 10-23-2018 XR Chest 1 View EXAM: XR Chest 1 Vie w HISTORY: Chest pain COMPARISON: None. FINDINGS: Single AP upright view is submitted.. The cardiomediastinal silhouette appears mildly enlarged likely due to magnification and low lung volumes. Lungs, pulmonary vasculature, and pleural spaces are normal. No acute osseous lesion is present. IMPRESSION: 1. No acute cardiopulmonary abnormality. 2. Low lung volumes. Final Dictated by: Annalise Monaco MD Dictated DT/TM: 10/22/2018 11:58 pm Signed by: Annalise Monaco MD Signed (Electronic Signature): 10/22/2018 11:59 pm (If Report Is Signed, Electronically Signed in Other Vendor System) Normal [facility] .eGFRon 09-21-2018 eGFR Non-AA >60 Normal >=60 [facility] Comment on above: Result Comment: Resu lt = 0-14.9 mL/min/1.73 m2 Kidney failure or Dialysis Result = 15-29 mL/min/1.73 m2 Severe decrease in GFR Result = 30-59 mL/min/1.73 m2 Moderate decrease in GFR Result >= 60 mL/min/1.73 m2 Normal or increased GFR Chronic kidney disease is defined as either kidney damage or GFR < 60 mL/min/1.73 m2 for >= 3 months. Kidney damage is defined as pathologic abnormalities or markers of damage including abnormalities in blood or urine tests or imaging studies. This GFR is NOT used for medication dosing. Performed By: #### E GFR #### [facility] [address] [place] [address] eGFR AA >60 Normal >=60 [facility] Comment on above: Result Comment: Resu lt = 0-14.9 mL/min/1.73 m2 Kidney failure or Dialysis Result = 15-29 mL/min/1.73 m2 Severe decrease in GFR Result = 30-59 mL/min/1.73 m2 Moderate decrease in GFR Result >= 60 mL/min/1.73 m2 Normal or increased GFR Performed By: #### E GFR #### [address] [address] Basic Metabolic Profileon Anion gap [Moles/Vol] 14 mmol/L Normal 7-17 [facility] Comment on above: Performed By: #### C [id number] #### [address] [address] Calcium [Mass/Vol] 9.0 mg/dL Normal 8.5-10.3 [facility] Comment on above: Performed By: #### C [id number] #### [address] [address] Chloride [Moles/Vol] 104 mmol/L Normal 98-110 [facility] Comment on above: Performed By: #### C [id number] #### [address] [address] CO2 [Moles/Vol] 22 mmol/L Normal 22-32 [facility] Comment on above: Performed By: #### C [id number] #### [address] [address] Creatinine [Mass/Vol] 1.11 mg/dL Normal 0.61-1.24 [facility] Comment on above: Performed By: #### C [id number] #### [address] [address] Glucose [Mass/Vol] 104 mg/dL Normal 74-118 [facility] Comment on above: Performed By: #### C [id number] #### [address] [address] Potassium [Moles/Vol] 3.7 mmol/L Normal 3.4-4.8 [facility] Comment on above: Performed By: #### C [id number] #### [address] [address] Sodium [Moles/Vol] 136 mmol/L Normal 133-142 [facility] Comment on above: Performed By: #### C [id number] #### [address] [address] Urea nitrogen [Mass/Vol] 15 mg/dL Normal 8-26 [facility] Comment on above: Performed By: #### C [id number] #### [address] [address] Urea nitrogen/Creatinin e [Mass ratio] 13.5 mg/mg Normal 10.0-20.0 [facility] Comment on above: Performed By: #### C [id number] #### [address] [address] CBC w/ Diffon 09-21-2018 Erythrocyte distribution width (RBC) [Ratio] 12.9 % Normal 11.6-14.8 [facility] Comment on above: Performed By: #### C BC #### [address] [address] Hematocrit (Bld) [Volume fraction] 43.5 % Normal 41.0-53.0 [facility] Comment on above: Performed By: #### C BC #### [address] [address] Hemoglobin (Bld) [Mass/Vol] 15.4 g/dL Normal 13.5-17.5 [facility] Comment on above: Performed By: #### C BC #### [address] [address] MCH (RBC) [Entitic mass] 31.2 pg Normal 27.0-35.0 [facility] Comment on above: Performed By: #### C BC #### [address] [address] MCHC (RBC) [Mass/Vol] 35.3 % Normal 31.0-37.0 [facility] Comment on above: Performed By: #### C BC #### [address] [address] MCV (RBC) [Entitic vol] 88.3 fL Normal 80.0-100.0 [facility] Comment on above: Performed By: #### C BC #### [address] [address] Platelet mean volume (Bld) [Entitic vol] 9.5 fL Normal 6.7-10.6 [facility] Comment on above: Performed By: #### C BC #### [address] [address] Platelets (Bld) [#/Vol] 222 x10*3/mcL Normal 150-350 [facility] Comment on above: Performed By: #### C BC #### [address] [address] RBC (Bld) [#/Vol] 4.93 x10*6/mcL Normal 4.30-5.80 [facility] Comment on above: Performed By: #### C BC #### [address] [address] WBC (Bld) [#/Vol] 8.7 x10*3/mcL Normal 4.5-11.0 [facility] Comment on above: Performed By: #### C BC #### [address] [address] Diff Autoon 09-21-2018 Baso Absolute 0.1 x10*3/mcL Normal 0.0-0.2 [facility] Comment on above: Performed By: #### . Automated Diff #### [address] [address] Basophils/100 WBC (Bld) 0.7 % Normal 0.0-1.2 [facility] Comment on above: Performed By: #### . Automated Diff #### [address] [address] Eos Absolute 0.4 x10*3/mcL Normal 0.0-0.4 [facility] Comment on above: Performed By: #### . Automated Diff #### [address] [address] Eosinophils/100 WBC (Bld) 4.4 % Normal 0.0-6.1 [facility] Comment on above: Performed By: #### . Automated Diff #### [address] [address] Lymphocytes (Bld) [#/Vol] 2.6 x10*3/mcL Normal 1.0-4.8 [facility] Comment on above: Performed By: #### . Automated Diff #### [address] [address] Lymphocytes/100 WBC (Bld) 29.8 % Normal 27.2-40.8 [facility] Comment on above: Performed By: #### . Automated Diff #### [address] [address] Bell Absolute 0.7 x10*3/mcL Normal 0.3-1.1 [facility] Comment on above: Performed By: #### . Automated Diff #### [address] [address] Monocytes/100 WBC (Bld) 7.7 % Normal 4.7-13.9 [facility] Comment on above: Performed By: #### . Automated Diff #### [address] [address] Neutro Absolute 5.0 x10*3/mcL Normal 1.8-7.7 [facility] Comment on above: Performed By: #### . Automated Diff #### [address] [address] Neutro Auto 57.4 % Normal 47.2-70.8 [facility] Comment on above: Performed By: #### . Automated Diff #### [address] [address] ED Clinical Summaryon 2018 ED Clinical Summary [address] [id number] ED Clinical Summary Person Information Name: Armani Stevens [place] Age: 38 Years : 1980 Sex: Male PCP: Marital Status: Single Race: White Ethnicity: Not or Language: Bruneian Visit Reason: Dizziness; Dizziness Acuity: 3 Enc Type: Emergency Med Service: Emergency Medicine Arrival: 09/20/2018 22:40:38 Discharge: 09/21/2018 00:15:00 LOS: 000 01:35 Checkin: 09/20/2018 22:40:38 Checkout: 09/21/2018 00:15:00 Dispo Type: Home or Self Care Address: [address] [place] [id number] Provider Notes: Diagnosis: 1:Dizziness Problems Active No Chronic Problems Smoking Status: Smoking Status 5-9 cigarettes (between 1/4 to 1/2 pack)/day in last 30 days Functional Status: Sensory Deficits: History of Falls: Mobility Assistance Prior to Admission: ADLs: Current Level of Assistance for Self-Care/Mobility: Cognitive Status: Allergies No Known Medication Allergies Laboratory or Other Results This Visit (last charted value for your 09/20/2018 visit) Hematology 09/20/2018 11:08 PM WBC: 8.7 x10 RBC: 4.93 x10 Neutro Auto: 57.4 % -- Normal range between ( 47.2 and 70.8 ) Lymph Auto: 29.8 % -- Normal range between ( 27.2 and 40.8 ) Bell Auto: 7.7 % -- Normal range between ( 4.7 and 13.9 ) Eos Auto: 4.4 % -- Normal range between ( 0.0 and 6.1 ) Basophil Auto: 0.7 % -- Normal range between ( 0.0 and 1.2 ) Baso Absolute: 0.1 x10 MCV: 88.3 fL -- Normal range between ( 80.0 and 100.0 ) MCHC: 35.3 % -- Normal range between ( 31.0 and 37.0 ) Lymph Absolute: 2.6 x10 Hct: 43.5 % -- Normal range between ( 41.0 and 53.0 ) Bell Absolute: 0.7 x10 MCH: 31.2 pg -- Normal range between ( 27.0 and 35.0 ) Neutro Absolute: 5.0 x10 Hgb: 15.4 g/dL -- Normal range between ( 13.5 and 17.5 ) Mean Platelet Volume: 9.5 fL -- Normal range between ( 6.7 and 10.6 ) Platelet: 222 x10 Eos Absolute: 0.4 x10 RDW: 12.9 % -- Normal range between ( 11.6 and 14.8 ) Chemistry 09/20/2018 11:08 PM Creatinine Lvl: 1.11 mg/dL -- Normal range between ( 0.61 and 1.24 ) BUN: 15 mg/dL -- Normal range between ( 8 and 26 ) Glucose Lvl: 104 mg/dL -- Normal range between ( 74 and 118 ) Potassium Lvl: 3.7 mmol/L -- Normal range between ( 3.4 and 4.8 ) Sodium Lvl: 136 mmol/L -- Normal range between ( 133 and 142 ) Calcium Lvl: 9.0 mg/dL -- Normal range between ( 8.5 and 10.3 ) Chloride: 104 mmol/L -- Normal range between ( 98 and 110 ) CO2: 22 mmol/L -- Normal range between ( 22 and 32 ) Anion Gap: 14 -- Normal range between ( 7 and 17 ) eGFR Non-AA: >60 mL/min/1.73m? eGFR AA: >60 mL/min/1.73m? BUN Crea Ratio: 13.5 -- Normal range between ( 10.0 and 20.0 ) Measurements: Height: Weight: 137.7 kg Blood Pressure: /79 mmHg BMI: Procedures No Procedures Documented Immunizations No Immunizations Documented This Visit Final Med List: No Medications Documented Care Team Members: Attending Physician: iMlan Tran MD Consulting Physician: Referring Physician: Provider Role Assigned Unassigned Milan Tran MD ED Provider 09/20/2018 22:51:42 Angela Knapp ED Nurse 09/20/2018 22:54:05 Follow up: With: Address: When: Call the [facility] physician referral line [phone] , only if needed Discharge Orders: Discharge Patient 09/21/18 0:08:00 EDT, Discharge to Home, Self, Dizziness Return to Work/School 09/20/18 22:40:00 EDT, 09/21/18 0:09:00 EDT, 09/20/18 22:40:00 EDT Patient Education Information: DIZZINESS, Unk Cause [facility] Poison Help line: . [facility] Hotline: [place] Tobacco Quit Line: [facility] ([place], [place]) [address]: [phone] [facility] ([place], [place]) [address]: [phone] [facility] [address] [place], [place]: [phone] Normal [facility] ED Note-Physicianon 09-22-19 ED Note-Physician Chief Complaint I was at work and got real dizzy. History of Present Illness Patient is a 38 year old male presenting to the ED for dizziness. 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 He states that the dizziness is pounding and like the room is spinning. Patient states that his boss told him he looked pale and to come to the ED. Patient denies sweats and nausea. He states that he last ate at 1830 today and has had enough water. Patient states that he has had an episode like this in the past. No other complaints at this time. Review of Systems GENERAL: [Negative for weakness, malaise] EYES: [Negative for injury, pain, redness, discharge] ENT: [Negative for injury, pain , sore throat and discharge] NECK: [Negative for injury, pain, swelling, and stiffness] CARDIOVASCULAR: [Negative for chest pain, palpitations] RESPIRATORY: [Negative for shortness of breath, cough, wheezing, and pleuritic chest pain] ABDOMEN/GI: [Negative for pain, nausea, vomiting] BACK: [Negative for injury or bruising] : [Negative for injury, bleeding, discharge, frequency, hematuria, urgency] MUSCULOSKELETAL: [Negative for arthralgias, injury and deformity] SKIN: [Negative for injury, rash, discoloration] NEURO: [Positive for dizziness, Negative for focal weakness, numbness, tingling, and seizure] Physical Exam CONSTITUTIONAL: [no apparent distress, well appearing] SKIN: [warm, dry, no jaundice, hives or petechiae] EYES: [pupils are equally round, extraocular movements intact without nystagmus, clear conjunctiva, non-icteric sclera] HENT: [normocephalic, atraumatic, moist mucus membranes, oropharynx clear without exudates] NECK: [Nontender and supple with no nuchal rigidity, no lymphadenopathy, full range of motion] PULMONARY: [clear to auscultation without wheezes, rhonchi, or rales, normal excursion, no accessory muscle use and no stridor] CARDIOVASCULAR: [regular rate, rhythm, normal S1 and S2. No appreciated murmurs. Strong radial pulses with intact distal perfusion] GASTROINTESTINAL: [soft, non-tender, non-distended, no palpable masses, no rebound or guarding] LYMPHATICS: [no edema in lower extremities, no lymphadenopathy] MUSCULOSKELETAL: [Extremities are nontender to palpation and have no gross deformity, no edema, redness, or swelling] NEUROLOGIC: [alert and oriented x 3, GCS 15, normal mentation and speech. Moves all extremities x 4 without motor or sensory deficit] PSYCHIATRIC: [normal mood and affect, thought process is clear and linear] Vitals & Measurements T: 36.8 ?C (Oral) RR: 16 BP: 158/89 SpO2: 93% DOSE WT: 137.7 kg Additional Vitals Peripheral Pulse Rate: 91 bpm Procedure No qualifying data available. ASA Documentation Medical Decision Making Marielos Armstrong scribing for and in the presence of Dr. Tran. Scribe Attestation: The information in this document, created by the auditor medical claims for me, accurately reflects the services I personally performed and the decisions made by me. The results of pertinent diagnostic studies and exam findings were discussed. The patient?s provisional diagnosis and plan of care were discussed with the patient and present family. The patient and/or present family expressed understanding of the diagnosis and plan. The nurse was instructed to provide written instructions and appropriate follow-up information. The patient understands their need and responsibility to obtain additional follow-up as instructed. The risks of medications administered and prescribed were discussed with the patient and family present. Reexamination/Reevaluat ion Patient generally looks well at the time of discharge and is nontoxic in appearance. Vital signs are stable/improving. No clinical suspicion for worsening symptomatology Assessment/Plan 1. Dizziness Ordered: Discharge Patient Orders: Return to Work/School Problem List/Past Medical History Ongoing No chronic problems Historical No qualifying data Procedure/Surgical History denies Medications Home No active home medications Inpatient No active inpatient medications Prescriptions No active Prescriptions Allergies No Known Medication Allergies Social History Alcohol Never Substance Abuse Denies All Tobacco 10 or more cigarettes (1/2 pack or more)/day in last 30 days Use:. Current every day smoker, Cigarettes, 6 per day. Cigarettes Family History Family history is unknown Lab Results Automated Hematology LATEST RESULTS WBC 09/20/18 23:08 8.7 RBC 09/20/18 23:08 4.93 Hgb 09/20/18 23:08 15.4 Hct 09/20/18 23:08 43.5 MCV 09/20/18 23:08 88.3 MCH 09/20/18 23:08 31.2 MCHC 09/20/18 23:08 35.3 RDW 09/20/18 23:08 12.9 Platelet 09/20/18 23:08 222 Mean Platelet Volume 09/20/18 23:08 9.5 Neutro Auto 09/20/18 23:08 57.4 Lymph Auto 09/20/18 23:08 29.8 Bell Auto 09/20/18 23:08 7.7 Eos Auto 09/20/18 23:08 4.4 Basophil Auto 09/20/18 23:08 0.7 Neutro Absolute 09/20/18 23:08 5.0 Lymph Absolute 09/20/18 23:08 2.6 Bell Absolute 09/20/18 23:08 0.7 Eos Absolute 09/20/18 23:08 0.4 Baso Absolute 09/20/18 23:08 0.1 Routine Chemistry LATEST RESULTS Sodium Lvl 09/20/18 23:08 136 Potassium Lvl 09/20/18 23:08 3.7 Chloride 09/20/18 23:08 104 CO2 09/20/18 23:08 22 Anion Gap 09/20/18 23:08 14 Glucose Lvl 09/20/18 23:08 104 BUN 09/20/18 23:08 15 Creatinine Lvl 09/20/18 23:08 1.11 eGFR AA 09/20/18 23:08 >60 eGFR Non-AA 09/20/18 23:08 >60 BUN Crea Ratio 09/20/18 23:08 13.5 Calcium Lvl 09/20/18 23:08 9.0 Diagnostic Results XRay No qualifying data available (XRay) Computerized Tomagraphy No qualifying data available (CT) Ultrasound No qualifying data available (Ultrasound) Magnetic Resonance Imaging No qualifying data available (MRI) ___ Marielos Armstrong Electronically signed by ___ Milan Tran MD 09/21/2018 01:12 EDT Normal [facility] Ambulatory Patient Education on 02-08-2018 Ambulatory Patient Education Patient Education Materials Name: Armani Stevens Current Date: 02/08/2018 10:33:59 [place] : 1980 The following sheet(s) are the Patient Education Leaflets for Armani Stevens Ambulatory Elbow Fracture You have a break (fracture) of one or more bones of your elbow joint. This may be a small crack in the bone. Or it may be a major break, with the broken parts pushed out of position. This fracture usually takes 4 to 12 weeks to heal, depending on the type. The first step in treatment is with a splint or cast. Severe fractures may need surgery to put the bone fragments back into place. Home care Follow these guidelines when caring for yourself at home: ? Keep your arm elevated to reduce pain and swelling. When sitting or lying down keep your arm above the level of your heart. You can do this by placing your arm on a pillow that rests on your chest or on a pillow at your side. This is most important during the first 2 days (48 hours) after the injury. ? Put an ice pack on the injured area. Do this for 20 minutes every 1 to 2 hours the first day. You can make an ice pack by wrapping a plastic bag of ice cubes in a thin towel. As the ice melts, be careful that the cast or splint doesn't get wet. You can place the ice pack inside the sling and directly over the splint or cast. Continue to use the ice pack 3 to 4 times a day for the next 2 days. Then use the ice pack as needed to ease pain and swelling. ? Keep the splint or cast completely dry at all times. Bathe with your splint or cast out of the water. Protect it with a large plastic bag, rubber-banded at the top end. If a fiberglass splint or cast gets wet, you can dry it with a instructor hairspring. ? You may use acetaminophen or ibuprofen to control pain, unless another pain medicine was prescribed. If you have chronic liver or kidney disease, talk with your healthcare provider before using these medicines. Also talk with your provider if you've had a stomach ulcer or gastrointestinal bleeding. ? Don't put creams or objects under the cast if you have itching. Follow-up care Follow up with your healthcare provider in 1 week, or as advised. This is to make sure the bone is healing the way it should. If a splint was put on, it may be changed to a cast during your follow-up visit. X-rays may be taken. You will be told of any new findings that may affect your care. When to seek medical advice Call your healthcare provider right away if any of these occur: ? The cast or splint cracks ? The plaster cast or splint becomes wet or soft ? The fiberglass cast or splint stays wet for more than 24 hours ? Tightness or pain under the cast or splint gets worse ? Bad odor from the cast or wound fluid stains the cast ? Fingers become swollen, cold, blue, numb, or tingly ? You can't move your fingers ? Skin around cast becomes red ? Fever of 100.4?F (38?C) or higher, or as directed by your healthcare provider ? [id number] [employer]. [address] [place] [address]. All rights reserved. This information is not intended as a substitute for professional medical care. Always follow your healthcare professional's instructions. Normal [facility] Family Medicine Office/Clini c Noteon 11-25-2018 Family Medicine Office/Clinic Note Chief Complaint patient states @ 7 am he injured his left elbow at work hitting it on a metal thang causing pain and swelling. History of Present Illness Pleasant 38-year-old male presents for chief complaint of left elbow pain. The patient states that around 7 AM this morning he accidentally bumped his left elbow into a metal thang at work. The patient denies wanting to file Workmen's Comp. at this time. Patient states that the pain is tolerable when he is at rest but states that whenever he extends his arm or fully flex that he does have increased discomfort. States there is mild swelling in that area. Denies any history of surgery or fracture to the affected area. The patient denies any decreased sensation distally in his left arm. Denies any limitation in range of motion. Review of Systems General: Denies fever, chills, or headache. Neuro: Denies headache, dizziness, syncope Cardiovascular: Denies chest pain, arrhythmia Pulmonary: Denies shortness of breath, wheezing, Musculoskeletal: Left elbow pain present. Denies any redness or heat to the affected extremity. Denies decreased range of motion noted to affected extremity. Skin: Denies bruising or redness Physical Exam Vitals & Measurements T: 36.5 ?C (Oral) RR: 16 BP: 132/94 SpO2: 99 HT: 187 cm WT: 137.5 kg DOSE WT: 137.5 kg BMI: 39.32 General: No acute distress. Alert and oriented X 4. Head: Normocephalic, atraumatic. Heart sounds: Regular rate and rhythm. No murmurs, gallops, or rubs. Lungs: Clear to auscultation bilaterally. No wheezes, rales, or rhonchi. Good air exchange bilaterally. Musculoskeletal: Left proximal medial area elbow Tenderness present that is worse with palpation. Full range of motion noted to the affected joint. No erythema or heat in the affected extremity/joint. Left radial and ulnar pulses are 2+. Skin is warm to the touch/color is within normal limits to race and good sensation intact to the affected extremity. Capillary refill is less than 2 seconds in affected extremity. Skin: No rashes, lesions, or open wounds. X-ray of left elbow ordered. Tiny curvilinear density adjacent to the medial condyle, felt to be degenerative in nature. A small chip fracture cannot be excluded. Clinical correlation is recommended. Nation is tenderness over the area with a chip fracture was visualized. Patient states he will file Workmen's Comp. Expressed to patient to follow up with the orthopedic doctor tomorrow. Neurovascular status intact distally after splint application. Additional Vitals Body Mass Index Measured: 39.32 kg/m2 BP Position/Location: Sitting Peripheral Pulse Rate: 82 bpm Assessment/Plan 1. Fracture of left elbow Wear the splint and the sling as directed. Follow-up with the orthopedic doctor of your choice tomorrow. You can return to work with limitations of not using her left arm. Apply ice to the affected area 6-8 times a day for 20 minutes. You can alternate Motrin and Tylenol as needed for discomfort. Go to the ER for any new or worsening signs or symptoms. Problem List/Past Medical History Ongoing No chronic problems Historical No qualifying data Procedure/Surgical History denies. Medications No active medications Allergies No Known Medication Allergies Social History Alcohol Never Substance Abuse Denies All Tobacco 10 or more cigarettes (1/2 pack or more)/day in last 30 days Use:. Current every day smoker, Cigarettes, 6 per day. Cigarettes Family History Family history is unknown Diagnostic Results No qualifying data available. No qualifying data available. No qualifying data available. No qualifying data available. Electronically signed by ___ James Cote CNP 02/08/18 10:28 EST Normal [facility] XR Elbow 4 Views Lefton 01-16 XR Elbow 4 Views Left CLINICAL HISTORY: Injury. EXAMINATION: Frontal, lateral and oblique images of the left elbow were obtained. There is no prior study available for comparison. FINDINGS: There is a curvilinear radiopaque density adjacent to the medial condyle. This is believed to be degenerative in nature. Tiny chip fracture cannot be completely excluded. Correlation with point tenderness is recommended. No definite displaced fracture. There is no joint effusion. Soft tissues are unremarkable. Joint spaces are maintained. IMPRESSION: Tiny curvilinear density adjacent to the medial condyle, felt to be degenerative in nature. A small chip fracture cannot be excluded. Clinical correlation is recommended. Final Dictated by: Tre Tubbs MD Dictated DT/TM: 02/08/2018 9:46 am Signed by: Tre Tubbs MD Signed (Electronic Signature): 02/08/2018 9:49 am (If Report Is Signed, Electronically Signed in Other Vendor System) Normal [facility] Encounters Encounter Date Encounter Type Care Provider Facility Start: 08-02-2021 End: 08-02-[address] NONE LISTED REQUEST Facility: Start: 11-23-2018 End: 11-23-2018 Emergency department patient visit Arabella Carterdez Facility:[facility] Start: 10-23-2018 End: 10-23-2018 Emergency department patient visit Milan Tavarez Facility:[facility] Start: 09-21-2018 End: 09-21-2018 Emergency department patient visit MILAN TRAN Facility:[facility] Payers Date Payer Category Payer Worker's Compensation 2018 Unknown 1980 Unknown [id number] 1980 Unknown [id number] 1980 Unknown [id number] 1980 Unknown [id number] 1957 Unknown [id number] Summary Purpose Family History No Family History Records FoundNo Family History Records Found Advance Directives No Advanced Directives Records FoundNo Advanced Directives Records Found Additional Source Comments (unrecognized sect ion and content) No Status Records FoundNo Status Records Found INFORMATION SOURCE (unrecogn ized section and content) DATE CREATED AUTHOR 12/20/2018 [facility] DATE CREATED AUTHOR AUTHOR'S EVERARDO RODRIGUEZ 08/06/2021 [facility] FOR RECORDS PERTAINING TO PATIENTS WHO ARE OR HAVE BEEN ENROLLED IN A CHEMICAL DEPENDENCY/SUBSTANCEABUSE PROGRAM, SOME INFORMATION MAY BE OMITTED. This clinical summary was aggregated from multiple sources. Caution should be exercised in using it in the provision of clinical care. This summary normalizes information from multiple sources, and as a consequence, information in this document may materially change the coding, format and clinical context of patient data. In addition, data may be omitted in some cases. CLINICAL DECISIONS SHOULD BE BASED ON THE PRIMARY CLINICAL RECORDS. [employer] provides no warranty or guarantee of the accuracy or completeness of information in this document.
[2023-11-21 22:46] VITALS: BP 144/98; PULSE 93; TEMP 36.8; O2SAT 96; BMI 38.1
--- NOTE | 2023-11-21 23:30 | XR_ITS ---
[facility] [place] [id number] Patient Name: LATISHA SOLORZANO MRN: [id number] date: 1980 Sex: M Assigned Patient Location: ER Current Patient Location: Accession/Order Number: [id number] Exam Date: 11/21/2023 23:34 Report Date: 11/22/2023 00:27 At the request of: CHENG SHARPE Procedure: XR shoulder RT min 2V EXAM: XR shoulder RT min 2V HISTORY: The patient is a 43-year-old male, injury COMPARISON: None. FINDINGS: The right shoulder is radiographically negative with no evidence of fracture, dislocation, calcific tendonitis, or other osseous or articular abnormalities. The glenohumeral joint is grossly maintained. The acromioclavicular joint is maintained. The subacromial space is maintained. XR/XR shoulder RT min 2V IMPRESSION: Negative. Electronically authenticated by: RODRIGO SANDERS Date: 11/22/2023 00:27
--- NOTE | 2023-11-21 23:31 | ED_ITS ---
HPI HPI - Extremity Injury (Upper) General Chief Complaint: Extremity Injury, Upper Stated Complaint: shoulder injury-[facility] Time Seen by Provider: 11/21/23 23:28 Source: patient Mode of arrival: ambulance Limitations: no limitations History of Present Illness HPI narrative: lifting at work and felt a pop in the right shoulder. Has pain right shoulder. No weakness or numbness. 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 Denies other injury Related Data Home Medications ?Medication ?Instructions ?Recorded ?Confirmed No Known Home Medications 11/17/23 11/21/23 Allergies Allergy/AdvReac Type Severity Reaction Status Date / Time No Known Drug Allergies Allergy Verified 11/21/23 22:52 Opioid HPI Opioid Management Most Recent Pain and Opioid Data: Last Pain Scale 4 11/22/23 01:07 Last ED Pain Assessment 11/21/23 22:46 Last MAR Pain Assessment 11/22/23 01:07 Review of Systems ROS Status of ROS 10 or more systems reviewed and unremark able except as noted in history and below PFSH PFSH Social History Little interest or pleasure in doing things: not at all Feeling down, depressed, or hopeless: not at all Exam Constitutional Vital Signs, click to edit/add: Last Vital Signs Temp 98.2 F 11/21/23 22:46 Pulse 93 H 11/21/23 22:46 Resp 16 11/21/23 22:46 BP 144/98 H 11/21/23 22:46 Pulse Ox 96 11/21/23 22:46 O2 Del Method Room Air 11/21/23 22:46 Common normals: no apparent distress, average body habitus, oriented x3, no limitations, healthy appearing, alert and well nourished [facility] Common normals: normocephalic and head/scalp atraumatic Eye Common normals: EOMs intact bilaterally and conjunctivae normal Respiratory Common normals: normal respiratory effort, no retractions and no use of accessory muscles Back & Pelvis Common normals: thoracic and lumbar spine normal to inspection and no thoracic nor lumbar tenderness Extremity Other: gen. nonspecific tenderness right shoulder. No deformity or discoloration. Decreased ROM Neuro Common normals: oriented x3, CN's II-XII intact bilaterally, moves all extremities and no focal motor deficits Psych Appearance: grossly normal Course Vital Signs Vital signs: Vital Signs Temperature 98.2 F 11/21/23 22:46 Pulse Rate 93 H 11/21/23 22:46 Respiratory Rate 16 11/21/23 22:46 Blood Pressure 144/98 H 11/21/23 22:46 Pulse Oximetry 96 11/21/23 22:46 Oxygen Delivery Method Room Air 11/21/23 22:46 Temperature 98.2 F 11/21/23 22:46 Pulse Rate 93 H 11/21/23 22:46 Respiratory Rate 16 11/21/23 22:46 Blood Pressure 144/98 H 11/21/23 22:46 Pulse Oximetry 96 11/21/23 22:46 Oxygen Delivery Method Room Air 11/21/23 22:46 MDM - Extremity Injury (Upper) MDM Narrative Medical decision making narrative: patient injured right shoulder at work. felt a pop in the shoulder. Now has pain and limited ROM. xray neg. N/V intact. Diagnosis of strain of shoulder. Returned to work with restrictions Discharge Plan Discharge Chief Complaint: Extremity Injury, Upper Clinical Impression: Muscle strain of right shoulder Patient Disposition: Home, Self-Care Prescriptions / Home Meds: No Action No Known Home Medications Print Language: Tristanian Instructions: Muscle Strain (ED) Additional Instructions: follow up with industrial medicine Friday Referrals: Physician,Non-Staff, [Primary Care Provider] - 1 week
[2023-11-22] MEDS: IBUPROFEN 400 MG TABLET 800 MG PO (01:07)
[2023-11-22 01:36] VITALS: BP 144/95; PULSE 78; O2SAT 97
== END 2023-11-22 01:40 | disposition home or self-care (01) ==
PROVIDERS: Emergency Provider Internal Medicine
DX: S46.911A Strain of unspecified muscle, fascia and tendon at shoulder and upper arm level, right arm, initial encounter (principal); X50.9XXA Other and unspecified overexertion or strenuous movements or postures, initial encounter
CPT/HCPCS: 73030; 99283

== ENCOUNTER 2024-01-31 17:17 | Emergency (ER) | payer BC, OTHER, SELFPAY ==
[2024-01-31] VITALS (35 sets, daily range): BP systolic 124–156; BP diastolic 82–118; PULSE 71–94; TEMP 36.5; O2SAT 93–100; BMI 42.2
--- OUTSIDE RECORDS SUMMARY | 2024-01-31 17:23 | XMS_ITS | CCD ---
Author Organization [facility] Inform ion Partnership [facility] Care Team Providers Care Toolroom Attendant Name Role Phone MILAN TRAN Attending Unavailab [...] Propensity to adverse reactions to drug (disorder) [facility] Repository Problems Active Problems Problem Classification Problem [...] BASO # 0.1 103/ul Normal 0.0-0.1 [facility] Comment on above: Performed By: #### C BC #### [facility] [address] [place] [address] Dr. Joceline Rosales Basophils/100 WBC (Bld) 0.7 % Normal 0.2-2.0 [facility] Comment on above: Performed By: #### C BC #### [facility] [address] [place] [address] Dr. Joceline Rosales EO # 0.2 103/ul Normal 0.0-0.7 [facility] Comment on above: Performed By: #### C BC #### [facility] [address] [place] [address] Dr. Joceline Rosales Eosinophils/100 WBC (Bld) 1.7 % Normal 0.9-7.0 [facility] Comment on above: Performed By: #### C BC #### [facility] [address] [place] [address] Dr. Joceline Rosales Erythrocyte distribution width (RBC) [Ratio] 12.5 % Normal 11.0-15.0 [facility] Comment on above: Performed By: #### C BC #### [facility] [address] [place] [address] Dr. Joceline Rosales Hematocrit (Bld) [Volume fraction] 45.0 % Normal 42.0-54.0 [facility] Comment on above: Performed By: #### C BC #### [facility] [address] [place] [address] Dr. Joceline Rosales Hemoglobin (Bld) [Mass/Vol] 15.2 g/dL Normal 14.0-18.0 [facility] Comment on above: Performed By: #### C BC #### [facility] [address] [place] [address] Dr. Joceline Rosales IG # 0.01 10e3/ul Normal 0.00-0.03 [facility] Comment on above: Performed By: #### C BC #### [facility] [address] [place] [address] Dr. Joceline Rosales IG % 0.1 % Normal 0.0-0.5 [facility] Comment on above: Performed By: #### C BC #### [facility] [address] [place] [address] Dr. Joceline Rosales LYMPH # 1.6 103/ul Normal 1.2-3.8 [facility] Comment on above: Performed By: #### C BC #### [facility] [address] [place] [address] Dr. Joceline Rosales Lymphocytes/100 WBC (Bld) 18.7 % Critically low 20.5-60.0 [facility] Comment on above: Performed By: #### C BC #### [facility] [address] [place] [address] Dr. Joceline Rosales MANUAL DIFF REQ NO Normal [facility] Comment on above: Performed By: #### C BC #### [facility] [address] [place] [address] Dr. Joceline Rosales MCH (RBC) [Entitic mass] 30.3 pg Normal 25.9-34.0 [facility] Comment on above: Performed By: #### C BC #### [facility] [address] [place] [address] Dr. Joceline Rosales MCHC (RBC) [Mass/Vol] 33.8 g/dL Normal 29.9-35.2 [facility] Comment on above: Performed By: #### C BC #### [facility] [address] [place] [address] Dr. Joceline Rosales MCV (RBC) [Entitic vol] 89.6 fL Normal 80.0-94.0 [facility] Comment on above: Performed By: #### C BC #### [facility] [address] [place] [address] Dr. Joceline Rosales MONO # 1.1 103/ul Critically high 0.3-0.8 [facility] Comment on above: Performed By: #### C BC #### [facility] [address] [place] [address] Dr. Joceline Rosales Monocytes/100 WBC (Bld) 12.2 % Critically high 1.7-12.0 [facility] Comment on above: Performed By: #### C BC #### [facility] [address] [place] [address] Dr. Joceline Rosales NEUT # 5.7 103/ul Normal 1.4-6.5 [facility] Comment on above: Performed By: #### C BC #### [facility] [address] [place] [address] Dr. Joceline Rosales Neutrophils/100 WBC (Bld) 66.6 % Normal 43.0-75.0 [facility] Comment on above: Performed By: #### C BC #### [facility] [address] [place] [address] Dr. Joceline Rosales Platelet mean volume (Bld) [Entitic vol] 11.0 fL Normal 9.5-13.5 [facility] Comment on above: Performed By: #### C BC #### [facility] [address] [place] [address] Dr. Joceline Rosales PLT 214 103/ul Normal 150-450 [facility] Comment on above: Performed By: #### C BC #### [facility] [address] [place] [address] Dr. Joceline Rosales RBC 5.02 106/ul Normal 4.70-6.10 [facility] Comment on above: Performed By: #### C BC #### [facility] [address] [place] [address] Dr. Joceline Rosales WBC 8.6 103/ul Normal 4.0-11.0 [facility] Comment on above: Performed By: #### C BC #### [facility] [address] [place] [address] Dr. Joceline Rosales [facility]-15 SARS-CoV-2 (COVID-19) RNA FAHAD+probe Ql (Unsp spec) Not detected Normal NOT DETECTED [facility] Comment on above: Result Comment: This test is not yet approved or cleared by the [place] FDA. When there are no FDA-approved or cleared tests available, and other criteria are met, FDA can make tests available under an emergency access mechanism called an Emergency Use Authorization (EUA). The EUA for this test is supported by the City Distribution Clerk of Health and Human Service's (HHS's) declaration [...] SARS-CoV-2. Performed By: #### C VDTB #### [facility] [address] [place] [address] Dr. Joceline Rosales PROF CHEM 8 (BAS METB)on Anion gap [Moles/Vol] 11.2 mmol/L Normal [facility] Comment on above: Performed By: #### B MP #### [facility] [address] [place] [address] Dr. Joceline Rosales Calcium [Mass/Vol] 8.5 mg/dL Normal 8.5-10.1 [facility] Comment on above: Performed By: #### B MP #### [facility] [address] [place] [address] Dr. Joceline Rosales Chloride [Moles/Vol] 107 mmol/L Normal 98-107 [facility] Comment on above: Performed By: #### B MP #### [facility] [address] [place] [address] Dr. Joceline Rosales CO2 [Moles/Vol] 24.9 mmol/L Normal 21.0-32.0 [facility] Comment on above: Performed By: #### B MP #### [facility] [address] [place] [address] Dr. Joceline Rosales Creatinine [Mass/Vol] 1.13 mg/dL Normal 0.70-1.30 [facility] Comment on above: Performed By: #### B MP #### [facility] [address] [place] [address] Dr. Joceline Rosales EGFR-AF TURKMEN >60 Normal >=60 [facility] Comment on above: Performed By: #### B MP #### [facility] [address] [address] [address] Joceline Rosales EGFR-NON AF TURKMEN >60 Normal >=60 [facility] Comment on above: Performed By: #### B MP #### [facility] [address] [address] [address] Joceline Rosales Glucose [Mass/Vol] 119 mg/dL Critically high 74-106 [facility] Comment on above: Performed By: #### B MP #### [facility] [address] [address] [address] Joceline Rosales Potassium [Moles/Vol] 4.1 mmol/L Normal 3.5-5.1 [facility] Comment on above: Performed By: #### B MP #### [facility] [address] [address] [address] Joceline Rosales Sodium [Moles/Vol] 139 mmol/L Normal 136-145 [facility] Comment on above: Performed By: #### B MP #### [facility] [address] [address] [address] Joceline Rosales Urea nitrogen [Mass/Vol] 10.0 mg/dL Normal 7.0-18.0 [facility] Comment on above: Performed By: #### B MP #### [facility] [address] [address] [address] Joceline Rosales Urea nitrogen/Creatinin e [Mass ratio] 8.8 mg/mg Normal [facility] Comment on above: Performed By: #### B MP #### [facility] [address] [address] [address] Joceline Rosales XR CHEST 1 Von [...] MEÑO HUERTA Date: 2021-08-02 18:27 Normal [facility] ED Clinical Summaryon 2018 ED Clinical Summary [facility] [address] [place], [place] [id number] ED Clinical Summary Person Information Name: Armani Stevens/Henry Age: 38 Years : 1980 Sex: Male PCP: Marital Status: Race: White Ethnicity: Not or Language: Fijian Visit Reason: Ankle pain-swelling; Extremities pain - swelling Acuity: 4 Enc Type: Emergency Med Service: Emergency Medicine Arrival: 11/22/2018 23:21:46 Discharge: 11/23/2018 00:39:00 LOS: 000 01:18 Checkin: 11/22/2018 23:21:46 Checkout: 11/23/2018 00:39:00 Dispo Type: Home or Self Care Address: [address] [facility] [address] Provider Notes: Diagnosis: 1:Right ankle injury; 2:Right [...] 11/22/2018 23:24:22 Follow up: With: Address: When: [facility] Physical therapist in [place], [place] Comments: Follow up with Orthopedics of symptoms persist With: Address: When: Need a Doctor? Call the physician's referral line @ [phone] With: Address: When: Follow-up with your primary care provider in 2 to 3 days Discharge Orders: [facility] ([facility]) 11/23/18 0:18:00 EDT, as needed, Right ankle injury Discharge Patient 11/23/18 0:31:00 EDT, Discharge to Home, Self Patient Education Information: ANKLE SPRAIN (Adult); Treating?Strains and Sprains [facility] Poison Help line: . [facility] Hotline: [place] Tobacco Quit Line: [facility] ([place], [place]) [address]: [phone] [facility] ([place], [place]) [address]: [phone] [facility] [address] [facility]. [place], [place]: [phone] Normal [facility] ED Note-Physicianon 11-24-19 ED Note-Physician Chief Complaint [...] 1. Right ankle injury Ordered: [facility] ([facility]) 2. Right ankle sprain Ordered: [facility] ([facility]) Orders: Discharge Patient Problem List/Past Medical [...] EdwardsArabella reid CNP 11/23/18 02:14 EDT Normal [facility] XR Ankle 3 Views Righton XR Ankle [...] Electronically Signed in Other Vendor System) Normal [facility] .eGFRon 10-23-2018 eGFR AA >60 Normal >=60 [facility] Comment on above: Result Comment: Resu lt = 0-14.9 mL/min/1.73 m2 Kidney failure or Dialysis Result = 15-29 mL/min/1.73 m2 Severe decrease in GFR Result = 30-59 mL/min/1.73 m2 Moderate decrease in GFR Result >= 60 mL/min/1.73 m2 Normal or increased GFR Performed By: #### E GFR ####[address] [address] eGFR Non-AA >60 Normal >=60 [facility] Comment on above: Result Comment: Resu lt [...] medication dosing. Performed By: #### E GFR ####[address] [address] AMI 2Hron 10-23-2018 2 Hour Myoglobin 24.0 ng/mL Normal 17.4-105.7 [facility] Comment on above: Performed By: #### A MI2 ####[address] [address] Troponin I.cardiac [Mass/Vol] ng/mL Normal 0.00-0.03 [facility] Comment on above: Result Comment: An i ncreased Troponin-I value, in the absence of myocardial ischemia, may indicate other etiologies of cardiac damage. Performed By: #### A MI2 ####[address] [address] AMI Initon 10-23-2018 Initial Myoglobin 29.0 ng/mL Normal 17.4-105.7 [facility] Comment on above: Performed By: #### A MI1 ####[address] [address] Troponin I.cardiac [Mass/Vol] ng/mL Normal 0.00-0.03 [facility] Comment on above: Result Comment: An i ncreased Troponin-I value, in the absence of myocardial ischemia, may indicate other etiologies of cardiac damage. Performed By: #### A MI1 ####[address] [address] Basic Metabolic Profileon Anion gap [Moles/Vol] 13 mmol/L Normal 7-17 [facility] Comment on above: Performed By: #### C [id number] ####[address] [address] Calcium [Mass/Vol] 8.9 mg/dL Normal 8.5-10.3 [facility] Comment on above: Performed By: #### C [id number] ####[address] [address] Chloride [Moles/Vol] 104 mmol/L Normal 98-110 [facility] Comment on above: Performed By: #### C [id number] ####[address] [address] CO2 [Moles/Vol] 22 mmol/L Normal 22-32 [facility] Comment on above: Performed By: #### C [id number] ####[address] [address] Creatinine [Mass/Vol] 1.13 mg/dL Normal 0.61-1.24 [facility] Comment on above: Performed By: #### C [id number] ####[address] [address] Glucose [Mass/Vol] 95 mg/dL Normal 74-118 [facility] Comment on above: Performed By: #### C [id number] ####[address] [address] Potassium [Moles/Vol] 3.9 mmol/L Normal 3.4-4.8 [facility] Comment on above: Performed By: #### C [id number] ####[address] [address] Sodium [Moles/Vol] 135 mmol/L Normal 133-142 [facility] Comment on above: Performed By: #### C [id number] ####[address] [address] Urea nitrogen [Mass/Vol] 15 mg/dL Normal 8-26 [facility] Comment on above: Performed By: #### C [id number] ####[address] [address] Urea nitrogen/Creatinin e [Mass ratio] 13.3 mg/mg Normal 10.0-20.0 [facility] Comment on above: Performed By: #### C [id number] ####[address] [address] CBC w/ Diffon 10-23-2018 Erythrocyte distribution width (RBC) [Ratio] 12.9 % Normal 11.6-14.8 [facility] Comment on above: Performed By: #### C BC ####[address] [address] Hematocrit (Bld) [Volume fraction] 43.0 % Normal 41.0-53.0 [facility] Comment on above: Performed By: #### C BC ####[address] [address] Hemoglobin (Bld) [Mass/Vol] 15.2 g/dL Normal 13.5-17.5 [facility] Comment on above: Performed By: #### C BC ####[address] [address] MCH (RBC) [Entitic mass] 31.1 pg Normal 27.0-35.0 [facility] Comment on above: Performed By: #### C BC ####[address] [address] MCHC (RBC) [Mass/Vol] 35.3 % Normal 31.0-37.0 [facility] Comment on above: Performed By: #### C BC ####[address] [address] MCV (RBC) [Entitic vol] 88.1 fL Normal 80.0-100.0 [facility] Comment on above: Performed By: #### C BC ####[address] [address] Platelet mean volume (Bld) [Entitic vol] 8.9 fL Normal 6.7-10.6 [facility] Comment on above: Performed By: #### C BC ####[address] [address] Platelets (Bld) [#/Vol] 220 x10*3/mcL Normal 150-350 [facility] Comment on above: Performed By: #### C BC ####[address] [address] RBC (Bld) [#/Vol] 4.88 x10*6/mcL Normal 4.30-5.80 [facility] Comment on above: Performed By: #### C BC ####[address] [address] WBC (Bld) [#/Vol] 8.8 x10*3/mcL Normal 4.5-11.0 [facility] Comment on above: Performed By: #### C BC ####[address] [address] D-Dimeron 10-23-2018 Fibrin D-dimer FEU IA (Bld) [Mass/Vol] 0.27 mg/L feu Normal 0.00-0.49 [facility] Comment on above: Result Comment: Resu lts of the D-Dimer test should always be interpreted in conjunction with the patient's medical history, clinical presentation, and other findings. Results <0.5 mg/L are considered NEGATIVE for VTE. Results >= 0.5 mg/L require further clinical evaluation. Levels of triglyceride up to 600 mg/dl do not interfere with this D-Dimer assay. Performed By: #### D KAY ####[address] [address] Diff Autoon 10-23-2018 Baso Absolute 0.1 x10*3/mcL Normal 0.0-0.2 [facility] Comment on above: Performed By: #### . Automated Diff #### [address] [address] Basophils/100 WBC (Bld) 0.8 % Normal 0.0-1.2 [facility] Comment on above: Performed By: #### . Automated Diff #### [address] [address] Eos Absolute 0.3 x10*3/mcL Normal 0.0-0.4 [facility] Comment on above: Performed By: #### . Automated Diff #### [address] [address] Eosinophils/100 WBC (Bld) 3.7 % Normal 0.0-6.1 [facility] Comment on above: Performed By: #### . Automated Diff #### [address] [address] Lymphocytes (Bld) [#/Vol] 2.6 x10*3/mcL Normal 1.0-4.8 [facility] Comment on above: Performed By: #### . Automated Diff #### [address] [address] Lymphocytes/100 WBC (Bld) 29.3 % Normal 27.2-40.8 [facility] Comment on above: Performed By: #### . Automated Diff #### [address] [address] [place] Absolute 0.7 x10*3/mcL Normal 0.3-1.1 [facility] Comment on above: Performed By: #### . Automated Diff #### [address] [address] Monocytes/100 WBC (Bld) 7.7 % Normal 4.7-13.9 [facility] Comment on above: Performed By: #### . Automated Diff #### [address] [address] Neutro Absolute 5.2 x10*3/mcL Normal 1.8-7.7 [facility] Comment on above: Performed By: #### . Automated Diff #### [address] [id number] Neutro Auto 58.5 % Normal 47.2-70.8 [facility] Comment on above: Performed By: #### . Automated Diff #### [address] [id number] ED Clinical Summaryon 2018 [place] [address] ED Clinical Summary Person Information Name: Armani Stevens [facility] Age: 38 Years : 1980 Sex: Male PCP: Marital Status: Race: White Ethnicity: Not or Language: Fijian Visit Reason: Chest pain; Chest pain - Cardiac Acuity: 2 Enc Type: Emergency Med Service: Emergency Medicine Arrival: 10/22/2018 23:22:20 Discharge: 10/23/2018 02:21:00 LOS: 000 02:59 Checkin: 10/22/2018 23:22:20 Checkout: 10/23/2018 02:21:00 Dispo Type: Home or Self Care Address: [address] [id number] Provider Notes: Diagnosis: 1:Acute chest pain; 2:Pleurisy [...] range between ( 27.2 and 40.8 ) [place] Auto: 7.7 % -- Normal range between [...] range between ( 41.0 and 53.0 ) [place] Absolute: 0.7 x10 MCH: 31.1 pg -- [...] Education Information: CHEST PAIN, Uncertain Cause; PLEURISY [facility] Poison Help line: . [facility] Hotline: [place] Tobacco Quit Line: [place], [place]) [address]: [phone] [place], [place]) [address]: [phone] [facility] [address] [place], [place]: [phone] [facility] ED Note-Physicianon 10-24-19 ED Note-Physician Chief Complaint [...] Lymph Auto 10/22/18 23:50 29.3 09/20/18 29.8 [place] Auto 10/22/18 23:50 7.7 09/20/18 7.7 Eos Auto 10/22/18 23:50 3.7 09/20/18 4.4 Basophil Auto 10/22/18 23:50 0.8 09/20/18 0.7 Neutro Absolute 10/22/18 23:50 5.2 09/20/18 5.0 Lymph Absolute 10/22/18 23:50 2.6 09/20/18 2.6 [place] Absolute 10/22/18 23:50 0.7 09/20/18 0.7 Eos [...] Milan Tavarez MD 10/23/18 07:01 EDT Normal [facility] Hep Func Panelon 10-23-2018 Albumin [Mass/Vol] 3.8 g/dL Normal 3.2-4.9 [facility] Comment on above: Result Comment: [facility] Laboratory updated the methodology used for albumin testing on 10/22/17. Albumin measurement was performed using a bromcresol purple dye-binding assay. Performed By: #### L IVER ####[address] [address] Alk Phos 86 IU/L Normal 32-91 [facility] Comment on above: Performed By: #### L IVER ####[address] [address] ALT [Catalytic activity/Vol] 44 U/L Normal 17-63 [facility] Comment on above: Performed By: #### L IVER ####[id number] [place] [address] AST [Catalytic activity/Vol] 30 U/L Normal 15-41 [facility] Comment on above: Performed By: #### L IVER ####[address] [address] Bili Direct 0.1 mg/dL Normal 0.1-0.5 [facility] Comment on above: Performed By: #### L IVER ####[address] [address] Bili Indirect 0.2 mg/dL Normal 0.0-1.0 [facility] Comment on above: Performed By: #### L IVER ####[address] [address] Bili Total 0.3 mg/dL Normal 0.3-1.2 [facility] Comment on above: Performed By: #### L IVER ####[address] [address] Protein [Mass/Vol] 6.6 g/dL Normal 6.5-8.1 [facility] Comment on above: Performed By: #### L IVER ####[address] [address] Lipaseon 10-23-2018 Lipase Lvl 46 IU/L Normal 22-51 [facility] Comment on above: Performed By: #### L IP ####[address] [address] PTon 10-23-2018 INR Coag (PPP) [Relative time] 0.9 {INR} Normal <=3.5 [facility] Comment on above: Result Comment: INR has no normal range. INR Therapeutic range is: 2.0-3.0 (AF, CVA, TIAs, DVT prophylaxis, acute DVT) 2.5-3.5 ([facility] heart valves, recurrent thrombosis/emboli) Performed By: #### P TINR ####[address] [address] PT Coag (PPP) [Time] 9.8 s Normal 9.2-11.7 [facility] Comment on above: Performed By: #### P TINR ####[address] [address] PTTon 10-23-2018 aPTT Coag (Bld) [Time] 24.3 s Normal 20.6-28.0 [facility] Comment on above: Performed By: #### P TT ####[address] [address] XR Chest 1 Viewon 10-23-2018 XR Chest [...] Electronically Signed in Other Vendor System) Normal [facility] .eGFRon 09-21-2018 eGFR Non-AA >60 Normal >=60 [facility] Comment on above: Result Comment: Resu lt [...] dosing. Performed By: #### E GFR #### [facility] [address] [place] [address] eGFR AA >60 Normal >=60 [facility] Comment on above: Result Comment: Resu lt = 0-14.9 mL/min/1.73 m2 Kidney failure or Dialysis Result = 15-29 mL/min/1.73 m2 Severe decrease in GFR Result = 30-59 mL/min/1.73 m2 Moderate decrease in GFR Result >= 60 mL/min/1.73 m2 Normal or increased GFR Performed By: #### E GFR #### [address] [address] Basic Metabolic Profileon Anion gap [Moles/Vol] 14 mmol/L Normal 7-17 [facility] Comment on above: Performed By: #### C [id number] #### [address] [address] Calcium [Mass/Vol] 9.0 mg/dL Normal 8.5-10.3 [facility] Comment on above: Performed By: #### C [id number] #### [address] [address] Chloride [Moles/Vol] 104 mmol/L Normal 98-110 [facility] Comment on above: Performed By: #### C [id number] #### [address] [address] CO2 [Moles/Vol] 22 mmol/L Normal 22-32 [facility] Comment on above: Performed By: #### C [id number] #### [address] [address] Creatinine [Mass/Vol] 1.11 mg/dL Normal 0.61-1.24 [facility] Comment on above: Performed By: #### C [id number] #### [address] [address] Glucose [Mass/Vol] 104 mg/dL Normal 74-118 [facility] Comment on above: Performed By: #### C D:[id number] #### [address] [address] Potassium [Moles/Vol] 3.7 mmol/L Normal 3.4-4.8 [facility] Comment on above: Performed By: #### C [id number] #### [address] [address] Sodium [Moles/Vol] 136 mmol/L Normal 133-142 [facility] Comment on above: Performed By: #### C [id number] #### [address] [address] Urea nitrogen [Mass/Vol] 15 mg/dL Normal 8-26 [facility] Comment on above: Performed By: #### C [id number] #### [address] [address] Urea nitrogen/Creatinin e [Mass ratio] 13.5 mg/mg Normal 10.0-20.0 [facility] Comment on above: Performed By: #### C [id number] #### [address] [address] CBC w/ Diffon 09-21-2018 Erythrocyte distribution width (RBC) [Ratio] 12.9 % Normal 11.6-14.8 [facility] Comment on above: Performed By: #### C BC #### [address] [address] Hematocrit (Bld) [Volume fraction] 43.5 % Normal 41.0-53.0 [facility] Comment on above: Performed By: #### C BC #### [address] [address] Hemoglobin (Bld) [Mass/Vol] 15.4 g/dL Normal 13.5-17.5 [facility] Comment on above: Performed By: #### C BC #### [address] [address] MCH (RBC) [Entitic mass] 31.2 pg Normal 27.0-35.0 [facility] Comment on above: Performed By: #### C BC #### [address] [address] MCHC (RBC) [Mass/Vol] 35.3 % Normal 31.0-37.0 [facility] Comment on above: Performed By: #### C BC #### [address] [address] MCV (RBC) [Entitic vol] 88.3 fL Normal 80.0-100.0 [facility] Comment on above: Performed By: #### C BC #### [address] [address] Platelet mean volume (Bld) [Entitic vol] 9.5 fL Normal 6.7-10.6 [facility] Comment on above: Performed By: #### C BC #### [address] [address] Platelets (Bld) [#/Vol] 222 x10*3/mcL Normal 150-350 [facility] Comment on above: Performed By: #### C BC #### [address] [address] RBC (Bld) [#/Vol] 4.93 x10*6/mcL Normal 4.30-5.80 [facility] Comment on above: Performed By: #### C BC #### [address] [address] WBC (Bld) [#/Vol] 8.7 x10*3/mcL Normal 4.5-11.0 [facility] Comment on above: Performed By: #### C BC #### [address] [address] Diff Autoon 09-21-2018 Baso Absolute 0.1 x10*3/mcL Normal 0.0-0.2 [facility] Comment on above: Performed By: #### . Automated Diff #### [address] [address] Basophils/100 WBC (Bld) 0.7 % Normal 0.0-1.2 [facility] Comment on above: Performed By: #### . Automated Diff #### [address] [address] Eos Absolute 0.4 x10*3/mcL Normal 0.0-0.4 [facility] Comment on above: Performed By: #### . Automated Diff #### [address] [address] Eosinophils/100 WBC (Bld) 4.4 % Normal 0.0-6.1 [facility] Comment on above: Performed By: #### . Automated Diff #### [address] [address] Lymphocytes (Bld) [#/Vol] 2.6 x10*3/mcL Normal 1.0-4.8 [facility] Comment on above: Performed By: #### . Automated Diff #### [address] [address] Lymphocytes/100 WBC (Bld) 29.8 % Normal 27.2-40.8 [facility] Comment on above: Performed By: #### . Automated Diff #### [address] [address] [place] Absolute 0.7 x10*3/mcL Normal 0.3-1.1 [facility] Comment on above: Performed By: #### . Automated Diff #### [address] [address] Monocytes/100 WBC (Bld) 7.7 % Normal 4.7-13.9 [facility] Comment on above: Performed By: #### . Automated Diff #### [address] [address] Neutro Absolute 5.0 x10*3/mcL Normal 1.8-7.7 [facility] Comment on above: Performed By: #### . Automated Diff #### [address] [address] Neutro Auto 57.4 % Normal 47.2-70.8 [facility] Comment on above: Performed By: #### . Automated Diff #### [address] [address] ED Clinical Summaryon 2018 ED Clinical Summary [address] [id number] ED Clinical Summary Person Information Name: Armani Stevens [place] Age: 38 Years : 1980 Sex: Male PCP: Marital Status: Single Race: White Ethnicity: Not or Language: Fijian Visit Reason: Dizziness; Dizziness Acuity: 3 Enc Type: Emergency Med Service: Emergency Medicine Arrival: 09/20/2018 22:40:38 Discharge: 09/21/2018 00:15:00 LOS: 000 01:35 Checkin: 09/20/2018 22:40:38 Checkout: 09/21/2018 00:15:00 Dispo Type: Home or Self Care Address: [address] [place] [address] Provider Notes: Diagnosis: 1:Dizziness Problems Active No [...] range between ( 27.2 and 40.8 ) [place] Auto: 7.7 % -- Normal range between [...] range between ( 41.0 and 53.0 ) [place] Absolute: 0.7 x10 MCH: 31.2 pg -- [...] Documented Care Team Members: Attending Physician: Milan Tran MD Consulting Physician: Referring Physician: Provider Role Assigned Unassigned Milan Tran MD ED Provider 09/20/2018 22:51:42 Angela Knapp ED Nurse 09/20/2018 22:54:05 Follow up: With: Address: When: Call the [facility] physician referral line [phone] , only if needed Discharge Orders: Discharge Patient 09/21/18 0:08:00 EDT, Discharge to Home, Self, Dizziness Return to Work/School 09/20/18 22:40:00 EDT, 09/21/18 0:09:00 EDT, 09/20/18 22:40:00 EDT Patient Education Information: DIZZINESS, Unk Cause [facility] Poison Help line: . [facility] Hotline: [place] Tobacco Quit Line: [facility] ([place], [place]) [address]: [phone] [facility] ([place], [place]) [address]: [phone] [facility] [address] [place], [place]: [phone] Normal [facility] ED Note-Physicianon 09-22-19 ED Note-Physician Chief Complaint [...] information in this document, created by the medical billing associate for me, accurately reflects the services I [...] 23:08 57.4 Lymph Auto 09/20/18 23:08 29.8 [place] Auto 09/20/18 23:08 7.7 Eos Auto 09/20/18 23:08 4.4 Basophil Auto 09/20/18 23:08 0.7 Neutro Absolute 09/20/18 23:08 5.0 Lymph Absolute 09/20/18 23:08 2.6 [place] Absolute 09/20/18 23:08 0.7 Eos Absolute 09/20/18 [...] Milan Tran MD 09/21/2018 01:12 EDT Normal [facility] Ambulatory Patient Education on 02-08-2018 Ambulatory Patient Education Patient Education Materials Name: Armani Stevens Current Date: 02/08/2018 10:33:59 [place] : 1980 The following sheet(s) are the [...] wet, you can dry it with a technologies division chair. ? You may use acetaminophen or ibuprofen [...] as directed by your healthcare provider ? [phone] [employer] [address] [place] [address]. All rights reserved. This information is not intended as a substitute for professional medical care. Always follow your healthcare professional's instructions. Normal [facility] Family Medicine Office/Clini c Noteon 11-25-2018 Family [...] James Cote CNP 02/08/18 10:28 EST Normal [facility] XR Elbow 4 Views Lefton 01-16 XR [...] Electronically Signed in Other Vendor System) Normal [facility] Encounters Encounter Date Encounter Type Care Provider Facility Start: 08-02-2021 End: 08-02-[address] NONE LISTED REQUEST Facility: Start: 11-23-2018 End: 11-23-2018 Emergency department patient visit Arabella Carterdez Facility:[facility] Start: 10-23-2018 End: 10-23-2018 Emergency department patient visit Milan Tavarez Facility:[facility] Start: 09-21-2018 End: 09-21-2018 Emergency department patient visit MILAN TRAN Facility:[facility] Payers Date Payer Category Payer Worker's Compensation 2018 Unknown 1980 Unknown [id number] 1980 Unknown [id number] 1980 Unknown [id number] 1980 Unknown [id number] 1957 Unknown [id number] Summary Purpose Family History No Family History Records FoundNo Family History Records Found Advance Directives No Advanced Directives Records FoundNo Advanced Directives Records Found Additional Source Comments (unrecognized sect ion and content) No Status Records FoundNo Status Records Found INFORMATION SOURCE (unrecogn ized section and content) DATE CREATED AUTHOR 12/20/2018 [facility] DATE CREATED AUTHOR AUTHOR'S EVERARDO RODRIGUEZ 08/06/2021 [facility] FOR RECORDS PERTAINING TO PATIENTS WHO ARE [...] BE BASED ON THE PRIMARY CLINICAL RECORDS. [employer] provides no warranty or guarantee of the accuracy or completeness of information in this document.
[2024-01-31 17:29] LABS: Glucometer 215 mg/dL (74-106)
--- NOTE | 2024-01-31 17:29 | PC.NURSE ---
bilat hand grasps strong and equal, pt bilat legs strong and equal.
--- NOTE | 2024-01-31 17:33 | CT_ITS ---
The [address] [address] Patient Name: LATISHA SOLORZANO MRN: [id number] date: 1980 Sex: M Assigned Patient Location: ER Current Patient Location: ER Accession/Order Number: [id number] Exam Date: 01/31/2024 17:38 Report Date: 01/31/2024 17:57 At the request of: TYLER COOK Procedure: CT stroke head/brain wo con EXAM: CT stroke head/brain wo con HISTORY: left facial droop COMPARISON: None. TECHNIQUE: CT head noncontrast. Axial scans with reformatted coronal sagittal images. Individualized radiation dose reduction used for this exam. FINDINGS: A density normal without mass, edema or hemorrhage or other acute abnormality. Normal size and position ventricles without mass effect or shift. No extra-axial or subdural collection. No hyperdense vessel seen around the [place]. Graft no focal bone lesion. Visualized mastoid, middle ear cavities clear CT/CT stroke head/brain wo con IMPRESSION: Negative head CT, no hemorrhage or other acute abnormality. Electronically authenticated by: JACQUELINE MITCHELL Date: 01/31/2024 17:57
--- NOTE | 2024-01-31 17:35 | XR_ITS ---
The [address] [address] Patient Name: LATISHA SOLORZANO MRN: [id number] date: 1980 Sex: M Assigned Patient Location: ER Current Patient Location: ED.MAIN Accession/Order Number: [id number] Exam Date: 01/31/2024 17:50 Report Date: 01/31/2024 20:09 At the request of: TYLER COOK Procedure: XR chest 1V EXAM: XR chest 1V , 01/31/2024 HISTORY: headache COMPARISON: Chest x-ray from 2021. TECHNIQUE: X-ray of the chest, portable upright AP view. FINDINGS: Cardiac silhouette within normal limits. No hilar or mediastinal enlargement. Lungs and costophrenic angles are clear. No acute osseous findings. No significant interval change. XR/XR chest 1V IMPRESSION: No acute cardiopulmonary findings. Electronically authenticated by: RICKEY MAGAÑA Date: 01/31/2024 20:09
--- NOTE | 2024-01-31 17:35 | ECG_ITS ---
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
[2024-01-31 17:54] LABS: Basophils Percent Auto 0.5 % (0.2-2.0); Eosinophils Absolute Auto 0.2 10^3/uL (0.0-0.7); Eosinophils Percent Auto 2.2 % (0.9-7.0); Hematocrit 43.8 % (42.0-54.0); Hemoglobin 15.3 g/dL (14.0-18.0); Immature Granulocytes Abs Auto 0.01 10^3/uL (0.00-0.03); Immature Granulocytes Pct Auto 0.1 % (0.0-0.5); Lymphocytes Absolute Auto 2.2 10^3/uL (1.2-3.8); Lymphocytes Percent Auto 27.7 % (20.5-60.0); Mean Corpuscular HGB Conc 34.9 g/dL (29.9-35.2); Mean Corpuscular Hemoglobin 31.3 pg (25.9-34.0); Mean Corpuscular Volume 89.6 fL (80.0-94.0); Mean Platelet Volume 10.9 fL (9.5-13.5); Monocytes Absolute Auto 0.5 10^3/uL (0.3-0.8); Monocytes Percent Auto 6.8 % (1.7-12.0); Neutrophils Absolute Auto 4.9 10^3/uL (1.4-6.5); Neutrophils Percent Auto 62.7 % (43.0-75.0); Platelet Count 222 10^3/uL (150-450); Red Blood Count 4.89 10^6/uL (4.70-6.10); Red Cell Distribution Width 11.9 % (11.0-15.0); White Blood Count 7.8 10^3/uL (4.0-11.0)
--- NOTE | 2024-01-31 18:02 | ED_ITS ---
Documented by User: Tiffany Pereraey 01/31/24 20:32 HPI HPI - General Adult General Chief complaint: Headache Stated complaint: stroke like symptoms Time Seen by Provider: 01/31/24 17:28 Source: patient Mode of arrival: Wheelchair History of Present Illness HPI narrative: 44-year-old male presents here with a chief complaint of a 3-day headache. He states he has had a headache for the past 3 days went to bed at 8:00 this morning woke up at 4 PM with pain to the posterior and anterior auricular region of his left side of his face facial droop and numbness and tingling to the left cheek area. Forehead was not involved. He denies a known history of hypertension or diabetes. He does not have a history of a stroke. He states he has not seen a physician in 2 years. Patient did ambulate into the emergency room on his own. He states he was here because he has had the numbness and tingling and felt like difficulty keeping his left eye closed Related Data Home Medications ?Medication ?Instructions ?Recorded ?Confirmed No Known Home Medications 11/17/23 01/31/24 Allergies Allergy/AdvReac Type Severity Reaction Status Date / Time No Known Drug Allergies Allergy Verified 11/21/23 22:52 Opioid HPI Opioid Management Most Recent Opioid Data: Last Pain Scale 4 11/22/23 01:07 11/22/23 Review of Systems ROS Narrative All Systems are negative except as noted/marked.All systems reviewed and otherwise negative PFSH PFSH Social History Little interest or pleasure in doing things: not at all Feeling down, depressed, or hopeless: not at all Exam Narrative Exam Narrative: All Systems are negative except as noted/marked.All systems reviewed and otherwise negative Nurses note and vital signs reviewed and patient is not hypoxic. General: The patient appears well and in no apparent distress. Patient is res ting comfortably on cart. Skin: Warm, dry, no pallor noted. There is no rash noted. Head: Normocephalic, atraumatic left sided facial droop with forehead, mouth and eyebrow involved Eye: Normal conjunctiva, no drainage, EOMI. PERRL Ears, Nose, Mouth, and Throat: oral mucosa is moist. Nares patent. Mouth without vesicles. Ear canals patent. Tm's without Erythema Cardiovascular: Regular Rate and Rhythm Respiratory: Patient is in no distress, no accessory muscle use, lungs are clear to auscultation, no wheezing, rales or rhonchi Back: non-tender, no CVA tenderness bilaterally to percussion. GI: Normal bowel sounds, no tenderness to palpation, no masses appreciated. No rebound, guarding, or rigidity noted. Musculoskeletal: equal grasp bilaterally, patient has no evidence of calf tenderness, no pitting edema, symmetrical pulses noted bilaterally Neurological: A&O x4, normal speech Psychiatric: Cooperative Constitutional Vital Signs, click to edit/add: Last Vital Signs Temp 97.7 F 01/31/24 17:19 Pulse 87 01/31/24 21:20 Resp 16 01/31/24 21:20 BP 143/99 H 01/31/24 21:01 Pulse Ox 97 01/31/24 21:20 O2 Del Method Room Air 01/31/24 17:19 Neuro Common normals: oriented x3, CN's II-XII intact bilaterally, moves all extremities and deep tendon reflexes 2+ bilaterally Sensorium/orientation: awake, alert, oriented to person, oriented to place and oriented to time Meningeal signs: no meningeal signs Cranial nerves: CN VII (facial) Laterality: left CN VII left: unable to raise eyebrow(s), weak closing of eye(s) and asymmetrical smile Coordination/balance: ozafip-ov-hajy test normal and jznv-wr-dxxq test normal Speech: speech normal Gait (neuro): normal gait Motor exam: strength 5/5 throughout, no pronator drift and no tremor noted Coordination: othkst-ox-xzds test normal and ecdb-pv-cozt test normal Pupil exam: Normal pupillary reactivity/response: bilateral Course Vital Signs Vital signs: Vital Signs Temperature 97.7 F 01/31/24 17:19 Pulse Rate 85 01/31/24 17:19 Respiratory Rate 20 01/31/24 17:19 Blood Pressure 156/105 H 01/31/24 17:19 Pulse Oximetry 98 01/31/24 17:19 Oxygen Delivery Method Room Air 01/31/24 17:19 Temperature 97.7 F 01/31/24 17:19 Pulse Rate 87 01/31/24 21:20 Respiratory Rate 16 01/31/24 21:20 Blood Pressure 143/99 H 01/31/24 21:01 Pulse Oximetry 97 01/31/24 21:20 Oxygen Delivery Method Room Air 01/31/24 17:19 Medical Decision Making MDM Narrative Medical decision making narrative: 44-year-old male presents here with a chief complaint of a 3-day headache. He states he has had a headache for the past 3 days went to bed at 8:00 this morning woke up at 4 PM with pain to the posterior and anterior auricular region of his left side of his face facial droop and numbness and tingling to the left cheek area. Forehead was not involved. He denies a known history of hypertension or diabetes. He does not have a history of a stroke. He states he has not seen a physician in 2 years. Patient did ambulate into the emergency room on his own. He states he was here because he has had the numbness and tingling and felt like difficulty keeping his left eye closed Stroke protocol was initiated when patient arrived here and to the emergency room he was taken immediately back to head CT. Head CT was read negative by radiology. patient denies taking any medications daily denies drinking any alcohol. We did reach out to neurology at [facility]. Dr. Banegas spoke to neurology . History of pain on the left side and posterior recurrently numbness and tingling to the left cheek 3-day history we are going to have him transferred up to [facility]. They do suggest having an MRI performed. Patient's medicated here with 324 mg of baby aspirin. We are currently awaiting to hear back from [facility] for bed assignment. Patient is stable vital signs are stable, blood pressure is normal. 2000 stable GS remains 15. Per old medical did call back with bed availability. We are making arrangements for transfer. Patient is stable at this time. Blood pressure is 126/82 pulse of 72 respiratory 18. 2030 only and patient themselves wishes to transfer themselves up to [facility]. Patient has been stable no neurological deficits GCS of 15 remains. His pain has improved. Patient is going to transport self with driving rather than waiting on our transportation which will be several hours in order to not have the delay of care further from here. Fluid per medical was notified. Differential Diagnosis Differential Diagnosis: cva, headache, bells palsy Medical Records Medical records reviewed: Yes I reviewed the patient's medical records Lab Data Lab results reviewed: Yes I reviewed the patient's lab results Labs: Lab Results 01/31/24 01/31/24 Range/Units 17:27 17:49 WBC 7.8 (4.0-11.0) 10^3/uL RBC 4.89 (4.70-6.10) 10^6/uL Hgb 15.3 (14.0-18.0) g/dL Hct 43.8 (42.0-54.0) % MCV 89.6 (80.0-94.0) fL MCH 31.3 (25.9-34.0) pg MCHC 34.9 (29.9-35.2) g/dL RDW 11.9 (11.0-15.0) % Plt Count 222 (150-450) 10^3/uL MPV 10.9 (9.5-13.5) fL Neut % (Auto) 62.7 (43.0-75.0) % Lymph % (Auto) 27.7 (20.5-60.0) % [place] % (Auto) 6.8 (1.7-12.0) % Eos % (Auto) 2.2 (0.9-7.0) % Baso % (Auto) 0.5 (0.2-2.0) % Neut # (Auto) 4.9 (1.4-6.5) 10^3/uL Lymph # (Auto) 2.2 (1.2-3.8) 10^3/uL Jess[place] # (Auto) 0.5 (0.3-0.8) 10^3/uL Eos # (Auto) 0.2 (0.0-0.7) 10^3/uL Baso # (Auto) 0.0 (0.0-0.1) 10^3/uL Abs Immat Gran (auto) 0.01 (0.00-0.03) 10^3/uL Imm/Tot Granulo (auto) 0.1 (0.0-0.5) % PT 9.8 (9.0-11.6) sec INR <0.93 APTT 30.3 (22.3-36.2) sec Sodium 138 (136-145) mmol/L Potassium 4.5 (3.5-5.1) mmol/L Chloride 104 (98-107) mmol/L Carbon Dioxide 25.6 (21.0-32.0) mmol/L Anion Gap 12.9 BUN 11.0 (7.0-18.0) mg/dL Creatinine 1.03 (0.70-1.30) mg/dL Est GFR ( Amer) >60 (>=60 mL/min/1.73m^2) Est GFR (Non-Af Amer) >60 (>=60 mL/min/1.73m^2) BUN/Creatinine Ratio 10.7 Glucose 178 H (74-106) mg/dL Calcium 8.6 (8.5-10.1) mg/dL Total Bilirubin 0.2 (0.2-1.0) mg/dL AST 28 (15-37) U/L ALT 67 H (16-63) U/L Alkaline Phosphatase 111 (46-116) U/L Troponin I High Sens 5.0 (4.0-76.1) pg/mL Total Protein 7.1 (6.4-8.2) g/dL Albumin 3.2 L (3.4-5.0) g/dL Globulin 3.9 g/dL Albumin/Globulin Ratio 0.8 POC Glucose 215 H (74-106) mg/dL ECG Data Interpretation: 1726 normal sinus rhythm with rate of 84 bpm, NE interval 176 ms QRS duration 96 ms, no STEMI Discharge Plan Discharge Chief Complaint: Headache Clinical Impression: Headache, Weakness of muscle of left side of face due to and not concurrent with cerebrovascular accident (CVA) Patient Disposition: [facility] Time of Disposition Decision: 20:00 Discharge Location: [facility] Condition: Fair Mode of Transportation: Private Vehicle Discharge Date/Time: 01/31/24 21:29 Documented by User: Kinsey Banegas MD 02/01/24 07:27 HPI HPI - General Adult General Chief complaint: Headache Stated complaint: stroke like symptoms Time Seen by Provider: 01/31/24 17:28 Related Data Home Medications ?Medication ?Instructions ?Recorded ?Confirmed No Known Home Medications 11/17/23 01/31/24 Allergies Allergy/AdvReac Type Severity Reaction Status Date / Time No Known Drug Allergies Allergy Verified 11/21/23 22:52 Opioid HPI Opioid Management Most Recent Opioid Data: Last Pain Scale 4 11/22/23 01:07 11/22/23 PFSH PFSH Social History Little interest or pleasure in doing things: not at all Feeling down, depressed, or hopeless: not at all Exam Constitutional Vital Signs, click to edit/add: Last Vital Signs Temp 97.7 F 01/31/24 17:19 Pulse 87 01/31/24 21:20 Resp 16 01/31/24 21:20 BP 143/99 H 01/31/24 21:01 Pulse Ox 97 01/31/24 21:20 O2 Del Method Room Air 01/31/24 17:19 Course Vital Signs Vital signs: Vital Signs Temperature 97.7 F 01/31/24 17:19 Pulse Rate 85 01/31/24 17:19 Respiratory Rate 20 01/31/24 17:19 Blood Pressure 156/105 H 01/31/24 17:19 Pulse Oximetry 98 01/31/24 17:19 Oxygen Delivery Method Room Air 01/31/24 17:19 Temperature 97.7 F 01/31/24 17:19 Pulse Rate 87 01/31/24 21:20 Respiratory Rate 16 01/31/24 21:20 Blood Pressure 143/99 H 01/31/24 21:01 Pulse Oximetry 97 01/31/24 21:20 Oxygen Delivery Method Room Air 01/31/24 17:19 Medical Decision Making [facility] Narrative Medical decision making narrative: 44-year-old male presents here with a chief complaint of a 3-day headache. He states he has had a headache for the past 3 days went to bed at 8:00 this morning woke up at 4 PM with pain to the posterior and anterior auricular region of his left side of his face facial droop and numbness and tingling to the left cheek area. Forehead was not involved. He denies a known history of hy pertension or diabetes. He does not have a history of a stroke. He states he has not seen a physician in 2 years. Patient did ambulate into the emergency room on his own. He states he was here because he has had the numbness and tingling and felt like difficulty keeping his left eye closed Stroke protocol was initiated when patient arrived here and to the emergency room he was taken immediately back to head CT. Head CT was read negative by radiology. patient denies taking any medications daily denies drinking any alcohol. We did reach out to neurology at [facility]. Dr. Banegas spoke to neurology . History of pain on the left side and posterior recurrently numbness and tingling to the left cheek 3-day history we are going to have him transferred up to [facility]. They do suggest having an MRI performed. Patient's medicated here with 324 mg of baby aspirin. We are currently awaiting to hear back from [facility] for bed assignment. Patient is stable vital signs are stable, blood pressure is normal. 2000 stable GS remains 15. Per [facility] medical did call back with bed availability. We are making arrangements for transfer. Patient is stable at this time. Blood pressure is 126/82 pulse of 72 respiratory 18. 2030 only and patient themselves wishes to transfer themselves up to [facility]. Patient has been stable no neurological deficits GCS of 15 remains. His pain has improved. Patient is going to transport self with driving rather than waiting on our transportation which will be several hours in order to not have the delay of care further from here. Fluid per medical was notified. Dr Banegas: I did personally evaluate the patient and spoke and discussed the case with neurology service and the patient presentation is highly suspicious of possible ischemic stroke he would need further evaluation with MRI Lab Data Labs: Lab Results 01/31/24 01/31/24 Range/Units 17:27 17:49 WBC 7.8 (4.0-11.0) 10^3/uL RBC 4.89 (4.70-6.10) 10^6/uL Hgb 15.3 (14.0-18.0) g/dL Hct 43.8 (42.0-54.0) % MCV 89.6 (80.0-94.0) fL MCH 31.3 (25.9-34.0) pg MCHC 34.9 (29.9-35.2) g/dL RDW 11.9 (11.0-15.0) % Plt Count 222 (150-450) 10^3/uL MPV 10.9 (9.5-13.5) fL Neut % (Auto) 62.7 (43.0-75.0) % Lymph % (Auto) 27.7 (20.5-60.0) % [place] % (Auto) 6.8 (1.7-12.0) % Eos % (Auto) 2.2 (0.9-7.0) % Baso % (Auto) 0.5 (0.2-2.0) % Neut # (Auto) 4.9 (1.4-6.5) 10^3/uL Lymph # (Auto) 2.2 (1.2-3.8) 10^3/uL [place] # (Auto) 0.5 (0.3-0.8) 10^3/uL Eos # (Auto) 0.2 (0.0-0.7) 10^3/uL Baso # (Auto) 0.0 (0.0-0.1) 10^3/uL Abs Immat Gran (auto) 0.01 (0.00-0.03) 10^3/uL Imm/Tot Granulo (auto) 0.1 (0.0-0.5) % PT 9.8 (9.0-11.6) sec INR <0.93 APTT 30.3 (22.3-36.2) sec Sodium 138 (136-145) mmol/L Potassium 4.5 (3.5-5.1) mmol/L Chloride 104 (98-107) mmol/L Carbon Dioxide 25.6 (21.0-32.0) mmol/L Anion Gap 12.9 BUN 11.0 (7.0-18.0) mg/dL Creatinine 1.03 (0.70-1.30) mg/dL Est GFR ( Amer) >60 (>=60 mL/min/1.73m^2) Est GFR (Non-Af Amer) >60 (>=60 mL/min/1.73m^2) BUN/Creatinine Ratio 10.7 Glucose 178 H (74-106) mg/dL Calcium 8.6 (8.5-10.1) mg/dL Total Bilirubin 0.2 (0.2-1.0) mg/dL AST 28 (15-37) U/L ALT 67 H (16-63) U/L Alkaline Phosphatase 111 (46-116) U/L Troponin I High Sens 5.0 (4.0-76.1) pg/mL Total Protein 7.1 (6.4-8.2) g/dL Albumin 3.2 L (3.4-5.0) g/dL Globulin 3.9 g/dL Albumin/Globulin Ratio 0.8 POC Glucose 215 H (74-106) mg/dL Discharge Plan Discharge Chief Complaint: Headache Clinical Impression: Headache, Weakness of muscle of left side of face due to and not concurrent with cerebrovascular accident (CVA) Patient Disposition: [facility] Time of Disposition Decision: 20:00 Discharge Location: [facility] Discharge location: [facility] Condition: Fair Mode of Transportation: Private Vehicle Discharge Date/Time: 01/31/24 21:29
[2024-01-31] MEDS: ONDANSETRON PF 4 MG/2 ML VIAL IV (18:03)
[2024-01-31] MEDS: DEXAMETHASONE SOD PHOS 10 MG/ML VIAL IV (18:03)
[2024-01-31 18:09] LABS: Partial Thromboplastin Time 30.3 sec (22.3-36.2); Prothrombin Time 9.8 sec (9.0-11.6)
[2024-01-31 18:11] LABS: Alanine Aminotransferase 67 U/L (16-63); Albumin Globulin Ratio 0.8; Albumin Level 3.2 g/dL (3.4-5.0); Alkaline Phosphatase 111 U/L (46-116); Anion Gap 12.9; Aspartate Amino Transferase 28 U/L (15-37); BUN Creatinine Ratio 10.7; Bilirubin Total 0.2 mg/dL (0.2-1.0); Calcium 8.6 mg/dL (8.5-10.1); Carbon Dioxide 25.6 mmol/L (21.0-32.0); Chloride 104 mmol/L (98-107); Estimated GFR (African America >60 (>=60 mL/min/1.73m^2); Estimated GFR (Non-African Ame >60 (>=60 mL/min/1.73m^2); Globulin 3.9 g/dL; Glucose 178 mg/dL (74-106); INR <0.93; Potassium 4.5 mmol/L (3.5-5.1); Sodium 138 mmol/L (136-145); Total Protein 7.1 g/dL (6.4-8.2)
[2024-01-31] MEDS: ASPIRIN 81 MG TAB.CHEW 324 MG PO (18:45)
== END 2024-01-31 21:29 | disposition short-term general hospital (02) ==
PROVIDERS: Physician Assistant; Emergency Provider Emergency Medicine
DX: R51.9 Headache, unspecified (principal); R29.810 Facial weakness; R20.0 Anesthesia of skin
CPT/HCPCS: 36415; 70450; 71045; 80053; 84484; 85025; 85610; 85730; 86850; 86900; 86901; 93005; 96374; 96375; 99285; J1100; J2405

== ENCOUNTER 2024-02-10 04:21 | Emergency (ER) | payer BC, OTHER, SELFPAY ==
[2024-02-10 04:23] VITALS: BP 172/100; PULSE 113; TEMP 36.7; O2SAT 98; BMI 42.2
--- OUTSIDE RECORDS SUMMARY | 2024-02-10 04:27 | XMS_ITS | CCD ---
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 Name Role Phone MILAN TRAN Attending Unavailab Arabella Torres Attending Unava ilMilan Paris Attending Unavailable DR MARCOS NONE LISTED Primary Care Unavaila KELLIE Vincent Consulting Unavailable KELLIE KHALIL Attending Unavailable KELLIE KHALIL Admitting Unavailable Meño Huerta Consulting Unavailable JUVALENTIN GARVEY Admitting Unavailable JUMARIANA GARVEYUHAMMAD Lynn Attending Unavailable BRYAN CEE Referring Unavailable [facility] U navailable Allergies Allergy Classification Reported Allergen(s) Allergy Type Date of Onset Reaction(s) Facility (1 source) No Known Medication Allergies; Translations: [No Known Medication Allergies] Propensity to adverse reactions to drug (disorder) [facility] Repository Problems Active Problems Problem Classification Problem Date Documented Da te Episodic/Chronic Acute cerebrovascular disease (2 sources) Cerebral infarction, unspecified; Translations: [Ischemic stroke] Onset: 01-31-2024 Chronic Diabetes mellitus without complication (1 source) Type 2 diabetes mellitus without complications; Translations: [Type 2 diabetes mellitus without complications] Onset: 01-31-2024 Chronic Essential hypertension (1 source) Essential (primary) hypertension; Translations: [Essential (primary) hypertension] Onset: 01-31-2024 Chronic Other connective tissue disease (1 source) Facial weakness; Translations: [Facial weakness] Onset: 01-31-2024 Episodic Other upper respiratory disease (1 source) Other diseases of pharynx; Translations: [Other diseases of pharynx] Onset: 01-31-2024 Episodic Other upper respiratory infections (1 source) Acute upper respiratory infection, unspecified; Translations: [ACUTE UP RESPIRATORY INFECTION UNS] Onset: 08-06-2021 Episodic Residual codes; unclassified (1 source) Pain, unspecified; Translations: [Pain, unspecified] Onset: 02-01-2024 Episodic Substance-related disorders (1 source) Nicotine dependence, [...] Test Name Value Interpretation Reference Range Facility BASIC METABOLIC PANLon 02-01 Anion gap [Moles/Vol] 9 mmol/L Normal 5-15 [facility] Comment on above: Performed By: #### C BRITT BMP, 64567-3, HA1C #### [facility] ([id number]) [address] [place] [address] Calcium [Mass/Vol] 9.4 mg/dL Normal 8.5-10.5 [facility] Comment on above: Performed By: #### C BCA BMP, 95972-3, HA1C #### [facility] ([id number]) [address], [address] [place] [address] Chloride [Moles/Vol] 104 mmol/L Normal 98-109 [facility] Comment on above: Performed By: #### C BCA, BMP, 68387-9, HA1C #### [facility] ([id number]) [address], [address] [place] [address] CO2 [Moles/Vol] 28 mmol/L Normal 22-32 [facility] Comment on above: Performed By: #### C BCA, BMP, 41134-5, HA1C #### [facility] ([id number]) [address], [address] [place] [address] Creatinine [Mass/Vol] 0.94 mg/dL Normal 0.60-1.30 [facility] Comment on above: Result Comment: METH OD TRACEABLE TO IDMS STANDARD Performed By: #### C BCA BMP, 42944-1, HA1C #### [facility] ([id number]) [address], [address] [place] [address] eGFR (CKD-EPI) NON-RACE DEPENDENT >90 Normal >59 [facility] Comment on above: Result Comment: Reported eGFR is based on the CKD-EPI 2020 equation that does not use a race coefficient. Performed By: #### C BCA, BMP, 70742-2, HA1C #### [facility] ([id number]) [address], [address] [place] [address] Glucose [Mass/Vol] 278 mg/dL High 65-99 [facility] Comment on above: Performed By: #### C BCA, BMP, 38237-5, HA1C #### [facility] ([id number]) [address], [address] [place] [address] Potassium [Moles/Vol] 4.0 mmol/L Normal 3.5-5.0 [facility] Comment on above: Performed By: #### C BCA, BMP, 11944-9, HA1C #### [facility] ([id number]) [address], [address] [place] [address] Sodium [Moles/Vol] 141 mmol/L Normal 134-146 [facility] Comment on above: Performed By: #### C BCA, BMP, 23497-7, HA1C #### [facility] ([id number]) [address], [address] [place] [address] Urea nitrogen [Mass/Vol] 16 mg/dL Normal 5-23 [facility] Comment on above: Performed By: #### C BCA, BMP, 43175-5, HA1C #### [facility] ([id number]) [address], [address] [place] [address] CBC AND AUTO DIFFon 11-18-20 24 ABSOLUTE BASOPHIL 0.1 X10E9/L Normal 0.0-0.2 [facility] Comment on above: Performed By: #### C RAUL DE LA TORRE, 47931-6, HA1C #### [facility] ([id number]) [address] [place] [address] ABSOLUTE NEUTROPHIL 15.3 X10E9/L High 1.5-6.6 [facility] Comment on above: Performed By: #### RAUL Ragland BCA, 07276-2, HA1C #### [facility] ([id number]) [address] [place] [address] Basophils/100 WBC (Bld) 0.6 % Normal [facility] Comment on above: Performed By: #### RAUL Ragland BCA, 23311-5, HA1C #### [facility] ([id number]) [address], [address] [place] [address] Eosinophils (Bld) [#/Vol] 0.0 10*3/uL Normal 0.0-0.4 [facility] Comment on above: Performed By: #### RAUL Ragland BCA, 25443-7, HA1C #### [facility] ([id number]) [address] [place] [address] Eosinophils/100 WBC (Bld) 0.1 % Normal [facility] Comment on above: Performed By: #### RAUL Ragland BCA, 60065-9, HA1C #### [facility] ([id number]) [address], [address] [place] [address] Erythrocyte distribution width (RBC) [Ratio] 13.2 % Normal 11.5-15.0 [facility] Comment on above: Performed By: #### C RAUL DE LA TORRE, 10906-2, HA1C #### [facility] ([id number]) [address] [address] [place] [address] Hematocrit (Bld) [Volume fraction] 46.5 % Normal 39-49 [facility] Comment on above: Performed By: #### C RAUL DE LA TORRE, 98671-3, HA1C #### [facility] ([id number]) [address], [facility] [[email or web address]] [address] [place] [address] Hemoglobin (Bld) [Mass/Vol] 16.2 g/dL Normal 13.0-17.0 [facility] Comment on above: Performed By: #### C RAUL DE LA TORRE, 74247-7, HA1C #### [facility] ([id number]) [address] [address] [place] [address] Lymphocytes (Bld) [#/Vol] 3.3 10*3/uL Normal 1.0-3.5 [facility] Comment on above: Performed By: #### C RAUL DE LA TORRE, 89174-8, HA1C #### [facility] ([id number]) [address], [facility] [[email or web address]] [address] [place] [address] Lymphocytes/100 WBC (Bld) 15.9 % Normal [facility] Comment on above: Performed By: #### RAUL Ragland BCA, 92251-2, HA1C #### [facility] ([id number]) [address], [facility] [[email or web address]] [address] [place] [address] MCH (RBC) [Entitic mass] 31.8 pg Normal 27-34 [facility] Comment on above: Performed By: #### C RAUL DE LA TORRE, 03646-2, HA1C #### [facility] ([id number]) [address], [address] [place] [address] MCHC (RBC) [Mass/Vol] 34.7 g/dL Normal 32-36 [facility] Comment on above: Performed By: #### C RAUL DE LA TORRE, 92381-5, HA1C #### [facility] ([id number]) [address], [address] [place] [address] MCV (RBC) [Entitic vol] 92 fL Normal 80-100 [facility] Comment on above: Performed By: #### C BRITT BMP, 32042-0, HA1C #### [facility] ([id number]) [address] [place] [address] Monocytes (Bld) [#/Vol] 2.0 10*3/uL High 0-0.9 [facility] Comment on above: Performed By: #### C BRITT BMP, 47866-7, HA1C #### [facility] ([id number]) [address], [address] [place] [address] Monocytes/100 WBC (Bld) 9.5 % Normal [facility] Comment on above: Performed By: #### C BRITT BMP, 83259-9, HA1C #### [facility] ([id number]) [address], [facility] [[email or web address]] [address] [place] [address] Neutrophils/100 WBC (Bld) 73.9 % Normal [facility] Comment on above: Performed By: #### Ellyn DE LA TORRE BMP, 10864-4, HA1C #### [facility] ([id number]) [address], [address] [place] [address] Platelet mean volume (Bld) [Entitic vol] 9.9 fL Normal 7-12 [facility] Comment on above: Performed By: #### C BRITT, BMP, 70343-7, HA1C #### [facility] ([id number]) [address] [place] [address] Platelets (Bld) [#/Vol] 272 10*3/uL Normal 150-450 [facility] Comment on above: Performed By: #### C BRITT, BMP, 70701-7, HA1C #### [facility] ([id number]) [address], [address] [place] [address] RBC COUNT 5.08 X10E12/L Normal 4.10-5.70 [facility] Comment on above: Performed By: #### C BCA, BMP, 19674-7, HA1C #### [facility] ([id number]) [address], [address] [place] [address] WBC (Bld) [#/Vol] 20.6 10*3/uL High 4.0-11.0 [facility] Comment on above: Performed By: #### C BCA, BMP, 08414-5, HA1C #### [facility] ([id number]) [address], [address] [place] [address] BASIC METABOLIC PANLon 01-31 Anion gap [Moles/Vol] 10 mmol/L Normal 5-15 [facility] Comment on above: Performed By: #### C BCA, BMP, 53715-3, HA1C #### [facility] ([id number]) [address] [place] [address] Calcium [Mass/Vol] 9.6 mg/dL Normal 8.5-10.5 [facility] Comment on above: Performed By: #### C BCA, BMP, 12304-2, HA1C #### [facility] ([id number]) [address], [address] [place] [address] Chloride [Moles/Vol] 101 mmol/L Normal 98-109 [facility] Comment on above: Performed By: #### C BCA, BMP, 39883-8, HA1C #### [facility] ([id number]) [address], [address] [place] [address] CO2 [Moles/Vol] 24 mmol/L Normal 22-32 [facility] Comment on above: Performed By: #### C BRITT BMP, 58047-8, HA1C #### [facility] ([id number]) [address] [address] [place] [address] Creatinine [Mass/Vol] 0.95 mg/dL Normal 0.60-1.30 [facility] Comment on above: Result Comment: METH OD TRACEABLE TO IDMS STANDARD Performed By: #### C BRITT BMP, 64031-3, HA1C #### [facility] ([id number]) [address], [address] [address] eGFR (CKD-EPI) NON-RACE DEPENDENT >90 Normal >59 [facility] Comment on above: Result Comment: Reported eGFR is based on the CKD-EPI 2020 equation that does not use a race coefficient. Performed By: #### C BRITT BMP, 46287-1, HA1C #### [facility] ([id number]) [address] [address] Glucose [Mass/Vol] 341 mg/dL High 65-99 [facility] Comment on above: Performed By: #### C RAUL DE LA TORRE, 57628-7, HA1C #### [facility] ([id number]) [address] [address] [place] [address] Potassium [Moles/Vol] 4.5 mmol/L Normal 3.5-5.0 [facility] Comment on above: Performed By: #### C BRITT BMP, 65406-1, HA1C #### [facility] ([id number]) [address] [address] [place] [address] Sodium [Moles/Vol] 135 mmol/L Normal 134-146 [facility] Comment on above: Performed By: #### C BCA, BMP, 74235-8, HA1C #### [facility] ([id number]) [address] [address] [place] [address] Urea nitrogen [Mass/Vol] 12 mg/dL Normal 5-23 [facility] Comment on above: Performed By: #### C RAUL DE LA TORRE, 30626-6, HA1C #### [facility] ([id number]) [address], [address] [place] [address] CBC AND AUTO DIFFon 01-31-20 24 ABSOLUTE BASOPHIL 0.0 X10E9/L Normal 0.0-0.2 [facility] Comment on above: Performed By: #### C RAUL DE LA TORRE, 21966-5, HA1C #### [facility] ([id number]) [address], [address] [place] [address] ABSOLUTE NEUTROPHIL 10.2 X10E9/L High 1.5-6.6 [facility] Comment on above: Performed By: #### RAUL Ragland BCA, 42759-9, HA1C #### [facility] ([id number]) [address] [place] [address] Basophils/100 WBC (Bld) 0.2 % Normal [facility] Comment on above: Performed By: #### RAUL Raglnad BCA, 98182-7, HA1C #### [facility] ([id number]) [address], [address] [place] [address] Eosinophils (Bld) [#/Vol] 0.0 10*3/uL Normal 0.0-0.4 [facility] Comment on above: Performed By: #### RAUL Ragland BCA, 61333-7, HA1C #### [facility] ([id number]) [address], [address] [place] [address] Eosinophils/100 WBC (Bld) 0.0 % Normal [facility] Comment on above: Performed By: #### Ellyn DE LA TORRE, RAUL, 21845-8, HA1C #### [facility] ([id number]) [address], [address] [place] [address] Erythrocyte distribution width (RBC) [Ratio] 12.9 % Normal 11.5-15.0 [facility] Comment on above: Performed By: #### C RAUL DE LA TORRE, 74652-6, HA1C #### [facility] ([id number]) [address], [address] [place] [address] Hematocrit (Bld) [Volume fraction] 47.1 % Normal 39-49 [facility] Comment on above: Performed By: #### C RAUL DE LA TORRE, 48639-7, HA1C #### [facility] ([id number]) [address], [facility] [[email or web address]] [address] [place] [address] Hemoglobin (Bld) [Mass/Vol] 16.1 g/dL Normal 13.0-17.0 [facility] Comment on above: Performed By: #### RAUL Ragland BCA, 49803-0, HA1C #### [facility] ([id number]) [address], [facility] [[email or web address]] [address] [place] [address] Lymphocytes (Bld) [#/Vol] 1.1 10*3/uL Normal 1.0-3.5 [facility] Comment on above: Performed By: #### RAUL Ragland BCA, 41928-9, HA1C #### [facility] ([id number]) [address], [facility] [[email or web address]] [address] [place] [address] Lymphocytes/100 WBC (Bld) 9.1 % Normal [facility] Comment on above: Performed By: #### RAUL Ragland BCA, 12405-6, HA1C #### [facility] ([id number]) [address], [facility] [[email or web address]] [address] [place] [address] MCH (RBC) [Entitic mass] 30.8 pg Normal 27-34 [facility] Comment on above: Performed By: #### RAUL Ragland BCA, 96693-4, HA1C #### [facility] ([id number]) [address], [address] [place] [address] MCHC (RBC) [Mass/Vol] 34.1 g/dL Normal 32-36 [facility] Comment on above: Performed By: #### RAUL Ragland BCA, 17461-3, HA1C #### [facility] ([id number]) [address] [place] [address] MCV (RBC) [Entitic vol] 90 fL Normal 80-100 [facility] Comment on above: Performed By: #### RAUL Ragland BCA, 26146-0, HA1C #### [facility] ([id number]) [address], [facility] [[email or web address]] [address] [place] [address] Monocytes (Bld) [#/Vol] 0.2 10*3/uL Normal 0-0.9 [facility] Comment on above: Performed By: #### RAUL Ragland BCA, 06027-5, HA1C #### [facility] ([id number]) [address], [address] [place] [address] Monocytes/100 WBC (Bld) 2.1 % Normal [facility] Comment on above: Performed By: #### RAUL Ragland BCA, 52110-7, HA1C #### [facility] ([id number]) [address], [address] [place] [address] Neutrophils/100 WBC (Bld) 88.6 % Normal [facility] Comment on above: Performed By: #### RAUL Ragland BCA, 94317-0, HA1C #### [facility] ([id number]) [address], [address] [place] [address] Platelet mean volume (Bld) [Entitic vol] 10.5 fL Normal 7-12 [facility] Comment on above: Performed By: #### RAUL Ragland BCA, 90718-5, HA1C #### [facility] ([id number]) [address] [place] [address] Platelets (Bld) [#/Vol] 256 10*3/uL Normal 150-450 [facility] Comment on above: Performed By: #### C BRITT, BMP, 80830-5, HA1C #### [facility] ([id number]) [address] [place] [address] RBC COUNT 5.21 X10E12/L Normal 4.10-5.70 [facility] Comment on above: Performed By: #### C BRITT, BMP, 29826-7, HA1C #### [facility] ([id number]) [address], [address] [place] [address] WBC (Bld) [#/Vol] 11.6 10*3/uL High 4.0-11.0 [facility] Comment on above: Performed By: #### C BRITT, RAUL, 18233-4, HA1C #### [facility] ([id number]) [address] [place] [address] CT CTA CAROTIDon 02-01-[address] CTA CAROTID Examination: CTA carotids Clinical History: Stroke, follow up Comparison: None CT CTA CAROTID Procedure: Multidetector CT angiogram performed through the cervical portion of the carotid arteries without complication, including source images and maximum intensity projection 3-D images displayed and reviewed on an independent PACS workstation by the radiologist. Automated exposure control was utilized. The [place] Symptomatic Carotid Endarterectomy Trial (NASCET)calculation of ICA stenosis percentage using the following formula with a threshold of 60 to 70%: % ICA stenosis = (1 - [narrowest ICA diameter/diameter normal distal cervical ICA]) x 100 Findings: 3-D images confirm the source images. Within the limitations of CT angiography, the vessels are normal in course and caliber with no aneurysm, dissection, or occlusion. No hemodynamically significant stenosis of the internal carotid artery relative to the distal internal carotid artery diameter. Flow is demonstrated within bilateral vertebral arteries, and bilateral internal, external, and common carotid arteries. IMPRESSION: * No hemodynamically significant stenosis of the internal carotid artery identified. All CT scans at this facility use dose modulation, iterative reconstruction, and/or weight based dosing when appropriate to reduce radiation dose to as low as reasonably achievable. For Reference: Carotid Doppler: For Carotid doppler reports, click Chart review, then cardiovascular tab at top Normal: 0% - PSV <150 cm/sec (No visible atherosclerosis) Plaque with no significant stenosis: (<50% ICA stenosis: PSV < 150 cm/sec ( <50% stenosis carotid atherosclerosis by B-mode image 50-69% ICA Stenosis: PSV > 150 cm /sec and EDV < 100 cm/sec; ICA/CCA Ratio < 4.0 > 70% ICA Stenosis: PSV > 230 cm/sec and EDV > 100 cm/sec; ICA/CCA Ratio > 4.0 ICA Occlusion: Absent PW Doppler and color flow signal; High resistive CCA flow velocity signal >70 % Post Cartoid Endarterectomy Stenosis: PSV >275 cm/sec and EDV >110 cm/sec >70 Post Carotid Stent Stenosis: PSV >325 cm/sec and EDV >120 cm/sec *PSV- Peak Systolic Velocity *EDV- End Diastolic Velocity Finalized by Marcelino Sheth MD on 02/01/2024 11:26 AM [facility] CT CTA HEADon 02-01-[address] CT angiogram head with contrast History: Stroke, CVA, TIA, acute neurologic symptoms Technique: CT angiogram of the head was performed following intravenous administration of 100 cc Omnipaque 350 nonionic intravenous contrast. 3-D maximum intensity projection images generated and reviewed under concurrent physician supervision. Automated exposure control was utilized. Arterial blood flow was measured to assist the stroke clinical team in the diagnosis of large vessel occlusion in patients undergoing screening for acute ischemic stroke using Rapid AI software when clinically indicated. Findings: The visualized extracranial internal carotid arteries are patent. The petrosal, cavernous and supraclinoid internal carotid arteries are patent. Symmetric arborization middle cerebral anterior cerebral arteries. Mild multifocal plaque and stenosis of the dilated. The vertebral arteries converge and form a normal-appearing basilar artery. Persistent origin bilateral posterior cerebral arteries. There is symmetric. Impression: No evidence of large vessel vascular or intracranial aneurysm identified within the limitations of the CT angiographic technique. All CT scans at this facility use dose modulation, iterative reconstruction, and/or weight based dosing when appropriate to reduce radiation dose to as low as reasonably achievable. Finalized by Pelon Ortega MD on 02/01/2024 11:27 AM Normal [facility] Glucose Glucometer (BldC) [M ass/Vol]on 02-01-2024 Glucose [Mass/Vol] 243 mg/dL High 65-99 [facility] Glucose [Mass/Vol] 201 mg/dL High 65-99 [facility] HGB A1C (GLYCO-HGB)on 2023 Glucose [Mass/Vol] 146 mg/dL Normal [facility] Comment on above: Performed By: #### C RAUL DE LA TORRE, 34467-2, HA1C #### [facility] ([id number]) [address] [place] [address] HbA1c (Bld) [Mass fraction] 6.7 % High 4.4-5.6 [facility] Comment on above: Result Comment: NOTE ADA Guidelines Result HgbA1c Normal : less than 5.7 % Prediabetes : 5.7 % to 6.4 % Diabetes : > 6.4 % Use with caution in patients with abnormal hemoglobin variants as the half-life of red blood cells and in vivo glycation rates are affected. Performed By: #### RAUL Ragland BCA, 27569-2, HA1C #### [facility] ([id number]) [address] [place] [address] Lipid 1996 panelon Cholesterol [Mass/Vol] 203 mg/dL High 150-200 [facility] Comment on above: Performed By: #### RAUL Ragland BCA, 24491-3, HA1C #### [facility] ([id number]) [address] [place] [address] Cholesterol in HDL [Mass/Vol] 45 mg/dL Normal >39 [facility] Comment on above: Result Comment: HDL <40 mg/dL - High Risk HDL > or = 40mg/dL- Desirable HDL >60 mg/dL - Negative Risk Performed By: #### C RAUL DE AL TORRE, 34712-2, HAAnkur #### [facility] ([id number]) [address] [place] [address] Cholesterol in LDL [Mass/Vol] 138 mg/dL High <130 [facility] Comment on above: Result Comment: LDL <100 mg/dL - Desirable LDL >160 mg/dL - High Risk Performed By: #### C RAUL DE LA TORRE, 12263-4, HA1C #### [facility] ([id number]) [address] [place] [address] Cholesterol in VLDL [Mass/Vol] 20 mg/dL Normal 0-30 [facility] Comment on above: Performed By: #### C RAUL DE LA TORRE, 72670-5, HA1C #### [facility] ([id number]) [address], [address] [place] [address] CHOLESTEROL:HDL 4.5 Normal 1.0-5.0 [facility] Comment on above: Performed By: #### C RAUL DE LA TORRE, 76048-4, HA1C #### [facility] ([id number]) [address], [address] [place] [address] Triglyceride [Mass/Vol] 98 mg/dL Normal 27-150 [facility] Comment on above: Performed By: #### RAUL Ragland BCA, 64489-6, HA1C #### [facility] ([id number]) [address], [address] [place] [address] MR BRAIN W WO CONTon 01-31- 024 MR BRAIN W WO CONT MR BRAIN W WO CONT MR BRAIN W WO CONT HISTORY: Neuro deficit, acute, stroke suspected. TECHNIQUE: Multiplanar multisequence MR of the brain was performed prior to and following the uncomplicated administration of ProHance intravenous contrast. COMPARISON: None. FINDINGS: No acute ischemia. No ventricular outflow obstruction. No acute intracranial hemorrhage. Normal brain parenchymal signal character 6 and morphology. No pathologic brain parenchymal enhancement. Asymmetric enhancement left labyrinthine segment of the facial nerve. Grossly symmetric mastoid segment facial nerve enhancement. Asymmetric nodular 1.1 cm area of enhancement within the left palatine tonsil. Unremarkable scalp soft tissues, orbits, remaining suprahyoid neck. IMPRESSION: Findings compatible with left Copeland's palsy. Otherwise No convincing acute intracranial abnormality. Asymmetric nodular area of enhancement left palatine tonsil, precise nature is uncertain, neoplasm is possible. Recommend direct visual inspection and CT neck with contrast. THIS REPORT CONTAINS A SIGNIFICANT RESULT AND/OR RECOMMENDATION, WHICH REQUIRES THE ATTENTION OF THE LICENSED CAREGIVER RESPONSIBLE FOR THIS PATIENT. THEREFORE, I SPECIFICALLY DESIGNATED THIS REPORT TO BE TELEPHONED BY THE RADIOLOGY DEPARTMENT. FINDINGS WERE INSTRUCTED TO BE CALLED TO THE CLINICAL SERVICE ON 02/01/2024 9:19 PM Finalized by Rod Alexandre MD on 02/01/2024 9:19 PM Normal [facility] XR SHOULDER LT MIN 2 VWSon 1 04-02-2023 XR SHOULDER LT MIN 2 VWS XR SHOULDER LT MIN 2 VWS XR SHOULDER LT MIN 2 VWS: 02/01/2024 1:23 PM CLINICAL INDICATION: Pain COMPARISON: None. TECHNIQUE: AP and scapular Y views of the left shoulder FINDINGS: Joint space of the left shoulder is intact without evidence of acute fracture or dislocation. No evidence of metallic foreign body within the left shoulder soft tissues. IMPRESSION: No metallic foreign body within the left shoulder soft tissues. Finalized by Liz Wilder MD on 02/01/2024 2:38 PM Normal [facility] CBC AUTO DIFFon 08-02-2021 BASO # 0.1 103/ul Normal 0.0-0.1 [facility] Comment on above: Performed By: #### C BC #### [facility] [address] [address] [address] Joceline Rosales Basophils/100 WBC (Bld) 0.7 % Normal 0.2-2.0 [facility] Comment on above: Performed By: #### C BC #### [facility] [address] [place] [address] Dr. Joceline Rosales EO # 0.2 103/ul Normal 0.0-0.7 [facility] Comment on above: Performed By: #### C BC #### [facility] [address] [place] [address] Dr. Joceline Rosales Eosinophils/100 WBC (Bld) 1.7 % Normal 0.9-7.0 [facility] Comment on above: Performed By: #### C BC #### [facility] [address] [place] [address] Dr. Joceline Rosales Erythrocyte distribution width (RBC) [Ratio] 12.5 % Normal 11.0-15.0 [facility] Comment on above: Performed By: #### C BC #### [facility] [address] [place] [address] Dr. Joceline Rosales Hematocrit (Bld) [Volume fraction] 45.0 % Normal 42.0-54.0 [facility] Comment on above: Performed By: #### C BC #### [facility] [address] [place] [address] Dr. Joceline Rosales Hemoglobin (Bld) [Mass/Vol] 15.2 g/dL Normal 14.0-18.0 [facility] Comment on above: Performed By: #### C BC #### [facility] [address] [place] [address] Dr. Joceline Rosales IG # 0.01 10e3/ul Normal 0.00-0.03 [facility] Comment on above: Performed By: #### C BC #### [facility] [address] [place] [address] Dr. Joceline Rosales IG % 0.1 % Normal 0.0-0.5 [facility] Comment on above: Performed By: #### C BC #### [facility] [address] [place] [address] Dr. Joceline Rosales LYMPH # 1.6 103/ul Normal 1.2-3.8 [facility] Comment on above: Performed By: #### C BC #### [facility] [address] [address] [address] Joceline Rosales Lymphocytes/100 WBC (Bld) 18.7 % Critically low 20.5-60.0 [facility] Comment on above: Performed By: #### C BC #### [facility] [address] [place] [address] Dr. Joceline Rosales MANUAL DIFF REQ NO Normal [facility] Comment on above: Performed By: #### C BC #### [facility] [address] [place] [address] Dr. Joceline Rosales MCH (RBC) [Entitic mass] 30.3 pg Normal 25.9-34.0 [facility] Comment on above: Performed By: #### C BC #### [facility] [address] [place] [address] Dr. Joceline Rosales MCHC (RBC) [Mass/Vol] 33.8 g/dL Normal 29.9-35.2 [facility] Comment on above: Performed By: #### C BC #### [facility] [address] [place] [address] Dr. Joceline Rosales MCV (RBC) [Entitic vol] 89.6 fL Normal 80.0-94.0 [facility] Comment on above: Performed By: #### C BC #### [facility] [address] [place] [address] Dr. Joceline Rosales MONO # 1.1 103/ul Critically high 0.3-0.[address] [facility] Comment on above: Performed By: #### C BC #### [facility] [address] [place] [address] Dr. Joceline Rosales Monocytes/100 WBC (Bld) 12.2 % Critically high 1.7-12.0 [facility] Comment on above: Performed By: #### C BC #### [facility] [address] [place] [address] Dr. Joceline Rosales NEUT # 5.7 103/ul Normal 1.4-6.5 [facility] Comment on above: Performed By: #### C BC #### [facility] [address] [place] [address] Dr. Joceline Rosales Neutrophils/100 WBC (Bld) 66.6 % Normal 43.0-75.0 [facility] Comment on above: Performed By: #### C BC #### [facility] [address] [place] [address] Dr. Joceline Rosales Platelet mean volume (Bld) [Entitic vol] 11.0 fL Normal 9.5-13.5 [facility] Comment on above: Performed By: #### C BC #### [facility] [address] [place] [address] Dr. Joceline Rosales PLT 214 103/ul Normal 150-450 [facility] Comment on above: Performed By: #### C BC #### [facility] [address] [place] [address] Dr. Joceline Rosales RBC 5.02 106/ul Normal 4.70-6.10 [facility] Comment on above: Performed By: #### C BC #### [facility] [address] [place] [address] Dr. Joceline Rosales WBC 8.6 103/ul Normal 4.0-11.0 [facility] Comment on above: Performed By: #### C BC #### [facility] [address] [place] [address] Dr. Joceline Rosales [facility] SARS-CoV-2 (COVID-19) RNA FAHAD+probe Ql (Unsp spec) Not detected Normal NOT DETECTED [facility] Comment on above: Result Comment: This test is not yet approved or cleared by the [place] FDA. When there are no FDA-approved or cleared tests available, and other criteria are met, FDA can make tests available under an emergency access mechanism called an Emergency Use Authorization (EUA). The EUA for this test is supported by the [place] of Health and Human Service's (HHS's) declaration [...] SARS-CoV-2. Performed By: #### C VDTB #### [facility] [address] [place] [address] Dr. Joceline Rosales PROF CHEM 8 (BAS METB)on Anion gap [Moles/Vol] 11.2 mmol/L Normal [facility] Comment on above: Performed By: #### B MP #### [facility] [address] [place] [address] Dr. Joceline Rosales Calcium [Mass/Vol] 8.5 mg/dL Normal 8.5-10.1 [facility] Comment on above: Performed By: #### B MP #### [facility] [address] [place] [address] Dr. Joceline Rosales Chloride [Moles/Vol] 107 mmol/L Normal 98-107 [facility] Comment on above: Performed By: #### B MP #### [facility] [address] [place] [address] Dr. Joceline Rosales CO2 [Moles/Vol] 24.9 mmol/L Normal 21.0-32.0 [facility] Comment on above: Performed By: #### B MP #### [facility] [address] [place] [address] Dr. Joceline Rosales Creatinine [Mass/Vol] 1.13 mg/dL Normal 0.70-1.30 [facility] Comment on above: Performed By: #### B MP #### [facility] [address] [place] [address] Dr. Joceline Rosales EGFR-AF AFGHAN >60 Normal >=60 [facility] Comment on above: Performed By: #### B MP #### [facility] [address] [place] [address] Dr. Joceline Rosales EGFR-NON AF AFGHAN >60 Normal >=60 [facility] Comment on above: Performed By: #### B MP #### [facility] [address] [address] [address] Joceline Rosales Glucose [Mass/Vol] 119 mg/dL Critically high 74-106 [facility] Comment on above: Performed By: #### B MP #### [facility] [id number] Joceline Rosales Potassium [Moles/Vol] 4.1 mmol/L Normal 3.5-5.1 [facility] Comment on above: Performed By: #### B MP #### [facility] [address] [address] [address] Joceline Rosales Sodium [Moles/Vol] 139 mmol/L Normal 136-145 [facility] Comment on above: Performed By: #### B MP #### [facility] [address] [address] [address] Joceline Rosales Urea nitrogen [Mass/Vol] 10.0 mg/dL Normal 7.0-18.0 [facility] Comment on above: Performed By: #### B MP #### [facility] [id number] Joceline Rosales Urea nitrogen/Creatinin e [Mass ratio] 8.8 mg/mg Normal [facility] Comment on above: Performed By: #### B MP #### [facility] [id number] Joceline Rosales XR CHEST 1 Von [...] MEÑO HUERTA Date: 2021-08-02 18:27 Normal [facility] ED Clinical Summaryon 2018 ED Clinical Summary [address] [address] ED Clinical Summary [facility] Age: 38 Years : 1980 Sex: Male PCP: Marital Status: Race: White Ethnicity: Not or Language: Serbian Visit Reason: Ankle pain-swelling; Extremities pain - swelling Acuity: 4 Enc Type: Emergency Med Service: Emergency Medicine Arrival: 11/22/2018 23:21:46 Discharge: 11/23/2018 00:39:00 LOS: 000 01:18 Checkin: 11/22/2018 23:21:46 Checkout: 11/23/2018 00:39:00 Dispo Type: Home or Self Care Address: [address] [address] Provider Notes: Diagnosis: 1:Right ankle injury; 2:Right [...] 11/22/2018 23:24:22 Follow up: With: Address: When: [facility] Physical therapist in [place], [place] Comments: Follow up with Orthopedics of symptoms persist With: Address: When: Need a Doctor? Call the physician's referral line @ [phone] With: Address: When: Follow-up with your primary care provider in 2 to 3 days Discharge Orders: [facility] ([facility]) 11/23/18 0:18:00 EDT, as needed, Right ankle injury Discharge Patient 11/23/18 0:31:00 EDT, Discharge to Home, Self Patient Education Information: ANKLE SPRAIN (Adult); Treating?Strains and Sprains [facility] Poison Help line: . [facility] Hotline: [place] Tobacco Quit Line: [facility] ([place], [place]) [address]: [phone] [facility] ([place], [place]) [address]: [phone] [facility] [address] [place], [place]: [phone] Normal [facility] ED Note-Physicianon 11-24-19 ED Note-Physician Chief [...] 1. Right ankle injury Ordered: [facility] ([facility]) 2. Right ankle sprain Ordered: [facility] ([facility]) Orders: Discharge Patient Problem List/Past Medical [...] EdwardsArabella reid CNP 11/23/18 02:14 EDT Normal [facility] XR Ankle 3 Views Righton XR [...] Electronically Signed in Other Vendor System) Normal [facility] .eGFRon 10-23-2018 eGFR AA >60 Normal >=60 [facility] Comment on above: Result Comment: Resu lt = 0-14.9 mL/min/1.73 m2 Kidney failure or Dialysis Result = 15-29 mL/min/1.73 m2 Severe decrease in GFR Result = 30-59 mL/min/1.73 m2 Moderate decrease in GFR Result >= 60 mL/min/1.73 m2 Normal or increased GFR Performed By: #### E GFR ####[address] [address] eGFR Non-AA >60 Normal >=60 [facility] Comment on above: Result Comment: Resu [...] medication dosing. Performed By: #### E GFR ####[address] [address] AMI 2Hron 10-23-2018 2 Hour Myoglobin 24.0 ng/mL Normal 17.4-105.7 [facility] Comment on above: Performed By: #### A MI2 ####[address] [address] Troponin I.cardiac [Mass/Vol] ng/mL Normal 0.00-0.03 [facility] Comment on above: Result Comment: An i ncreased Troponin-I value, in the absence of myocardial ischemia, may indicate other etiologies of cardiac damage. Performed By: #### A MI2 ####[address] [address] AMI Initon 10-23-2018 Initial Myoglobin 29.0 ng/mL Normal 17.4-105.7 [facility] Comment on above: Performed By: #### A MI1 ####[address] [address] Troponin I.cardiac [Mass/Vol] ng/mL Normal 0.00-0.03 [facility] Comment on above: Result Comment: An i ncreased Troponin-I value, in the absence of myocardial ischemia, may indicate other etiologies of cardiac damage. Performed By: #### A MI1 ####[address] [address] Basic Metabolic Profileon Anion gap [Moles/Vol] 13 mmol/L Normal 7-17 [facility] Comment on above: Performed By: #### C [id number] ####[address] [address] Calcium [Mass/Vol] 8.9 mg/dL Normal 8.5-10.3 [facility] Comment on above: Performed By: #### C [id number] ####[address] [address] Chloride [Moles/Vol] 104 mmol/L Normal 98-110 [facility] Comment on above: Performed By: #### C [id number] ####[address] [address] CO2 [Moles/Vol] 22 mmol/L Normal 22-32 [facility] Comment on above: Performed By: #### C [id number] ####[address] [address] Creatinine [Mass/Vol] 1.13 mg/dL Normal 0.61-1.24 [facility] Comment on above: Performed By: #### C [id number] ####[address] [address] Glucose [Mass/Vol] 95 mg/dL Normal 74-118 [facility] Comment on above: Performed By: #### C [id number] ####[address] [address] Potassium [Moles/Vol] 3.9 mmol/L Normal 3.4-4.8 [facility] Comment on above: Performed By: #### C [id number] ####[address] [address] Sodium [Moles/Vol] 135 mmol/L Normal 133-142 [facility] Comment on above: Performed By: #### C [id number] ####[address] [address] Urea nitrogen [Mass/Vol] 15 mg/dL Normal 8-26 [facility] Comment on above: Performed By: #### C [id number] ####[address] [address] Urea nitrogen/Creatinin e [Mass ratio] 13.3 mg/mg Normal 10.0-20.0 [facility] Comment on above: Performed By: #### C [id number] ####[address] [address] CBC w/ Diffon 10-23-2018 Erythrocyte distribution width (RBC) [Ratio] 12.9 % Normal 11.6-14.8 [facility] Comment on above: Performed By: #### C BC ####[address] [address] Hematocrit (Bld) [Volume fraction] 43.0 % Normal 41.0-53.0 [facility] Comment on above: Performed By: #### C BC ####[address] [address] Hemoglobin (Bld) [Mass/Vol] 15.2 g/dL Normal 13.5-17.5 [facility] Comment on above: Performed By: #### C BC ####[address] [address] MCH (RBC) [Entitic mass] 31.1 pg Normal 27.0-35.0 [facility] Comment on above: Performed By: #### C BC ####[address] [address] MCHC (RBC) [Mass/Vol] 35.3 % Normal 31.0-37.0 [facility] Comment on above: Performed By: #### C BC ####[address] [address] MCV (RBC) [Entitic vol] 88.1 fL Normal 80.0-100.0 [facility] Comment on above: Performed By: #### C BC ####[address] [address] Platelet mean volume (Bld) [Entitic vol] 8.9 fL Normal 6.7-10.6 [facility] Comment on above: Performed By: #### C BC ####[address] [address] Platelets (Bld) [#/Vol] 220 x10*3/mcL Normal 150-350 [facility] Comment on above: Performed By: #### C BC ####[address] [address] RBC (Bld) [#/Vol] 4.88 x10*6/mcL Normal 4.30-5.80 [facility] Comment on above: Performed By: #### C BC ####[address] [address] WBC (Bld) [#/Vol] 8.8 x10*3/mcL Normal 4.5-11.0 [facility] Comment on above: Performed By: #### C BC ####[address] [address] D-Dimeron 10-23-2018 Fibrin D-dimer FEU IA (Bld) [Mass/Vol] 0.27 mg/L feu Normal 0.00-0.49 [facility] Comment on above: Result Comment: Resu lts of the D-Dimer test should always be interpreted in conjunction with the patient's medical history, clinical presentation, and other findings. Results <0.5 mg/L are considered NEGATIVE for VTE. Results >= 0.5 mg/L require further clinical evaluation. Levels of triglyceride up to 600 mg/dl do not interfere with this D-Dimer assay. Performed By: #### D KAY ####[address] [address] Diff Autoon 10-23-2018 Baso Absolute 0.1 x10*3/mcL Normal 0.0-0.2 [facility] Comment on above: Performed By: #### . Automated Diff #### [address] [address] Basophils/100 WBC (Bld) 0.8 % Normal 0.0-1.2 [facility] Comment on above: Performed By: #### . Automated Diff #### [address] [address] Eos Absolute 0.3 x10*3/mcL Normal 0.0-0.4 [facility] Comment on above: Performed By: #### . Automated Diff #### [address] [address] Eosinophils/100 WBC (Bld) 3.7 % Normal 0.0-6.1 [facility] Comment on above: Performed By: #### . Automated Diff #### [address] [address] Lymphocytes (Bld) [#/Vol] 2.6 x10*3/mcL Normal 1.0-4.8 [facility] Comment on above: Performed By: #### . Automated Diff #### [address] [address] Lymphocytes/100 WBC (Bld) 29.3 % Normal 27.2-40.8 [facility] Comment on above: Performed By: #### . Automated Diff #### [address] [address] Maury Absolute 0.7 x10*3/mcL Normal 0.3-1.1 [facility] Comment on above: Performed By: #### . Automated Diff #### [address] [address] Monocytes/100 WBC (Bld) 7.7 % Normal 4.7-13.9 [facility] Comment on above: Performed By: #### . Automated Diff #### [address] [address] Neutro Absolute 5.2 x10*3/mcL Normal 1.8-7.7 [facility] Comment on above: Performed By: #### . Automated Diff #### [address] [address] Neutro Auto 58.5 % Normal 47.2-70.8 [facility] Comment on above: Performed By: #### . Automated Diff #### [address] [address] ED Clinical Summaryon 2018 ED Clinical Summary [place] [id number] ED Clinical Summary Person Information Name: Armani Stevens [place] [place] Age: 38 Years : 1980 Sex: Male PCP: Marital Status: Race: White Ethnicity: Not or Language: Serbian Visit Reason: Chest pain; Chest pain - Cardiac Acuity: 2 Enc Type: Emergency Med Service: Emergency Medicine Arrival: 10/22/2018 23:22:20 Discharge: 10/23/2018 02:21:00 LOS: 000 02:59 Checkin: 10/22/2018 23:22:20 Checkout: 10/23/2018 02:21:00 Dispo Type: Home or Self Care Address: [address] [place], [place] [id number] Provider Notes: Diagnosis: 1:Acute chest pain; 2:Pleurisy [...] range between ( 27.2 and 40.8 ) Maury Auto: 7.7 % -- Normal range between [...] range between ( 41.0 and 53.0 ) Maury Absolute: 0.7 x10 MCH: 31.1 pg -- [...] Education Information: CHEST PAIN, Uncertain Cause; PLEURISY [facility] Poison Help line: . [facility] Hotline: [place] Tobacco Quit Line: [facility] ([place], [place]) [address]: [phone] [facility] ([place], [place]) [address]: [phone] [facility] [address] [facility]. [place], [place]: [phone] Normal [facility] ED Note-Physicianon 10-24-19 ED Note-Physician Chief Complaint [...] Lymph Auto 10/22/18 23:50 29.3 09/20/18 29.8 Maury Auto 10/22/18 23:50 7.7 09/20/18 7.7 Eos Auto 10/22/18 23:50 3.7 09/20/18 4.4 Basophil Auto 10/22/18 23:50 0.8 09/20/18 0.7 Neutro Absolute 10/22/18 23:50 5.2 09/20/18 5.0 Lymph Absolute 10/22/18 23:50 2.6 09/20/18 2.6 Maury Absolute 10/22/18 23:50 0.7 09/20/18 0.7 Eos [...] data available (MRI) Electronically signed by ___ Corby HENAO, Milan Reyna 10/23/18 07:01 EDT Normal [facility] Hep Func Panelon 10-23-2018 Albumin [Mass/Vol] 3.8 g/dL Normal 3.2-4.9 [facility] Comment on above: Result Comment: [facility] Laboratory updated the methodology used for albumin testing on 10/22/17. Albumin measurement was performed using a bromcresol purple dye-binding assay. Performed By: #### L IVER ####[address] [address] Alk Phos 86 IU/L Normal 32-91 [facility] Comment on above: Performed By: #### L IVER ####[address] [address] ALT [Catalytic activity/Vol] 44 U/L Normal 17-63 [facility] Comment on above: Performed By: #### L IVER ####[address] [address] AST [Catalytic activity/Vol] 30 U/L Normal 15-41 [facility] Comment on above: Performed By: #### L IVER ####[address] [address] Bili Direct 0.1 mg/dL Normal 0.1-0.5 [facility] Comment on above: Performed By: #### L IVER ####[address] [address] Bili Indirect 0.2 mg/dL Normal 0.0-1.0 [facility] Comment on above: Performed By: #### L IVER ####[address] [address] Bili Total 0.3 mg/dL Normal 0.3-1.2 [facility] Comment on above: Performed By: #### L IVER ####[address] [address] Protein [Mass/Vol] 6.6 g/dL Normal 6.5-8.1 [facility] Comment on above: Performed By: #### L IVER ####[address] [address] Lipaseon 10-23-2018 Lipase Lvl 46 IU/L Normal 22-51 [facility] Comment on above: Performed By: #### L IP ####[address] [address] PTon 10-23-2018 INR Coag (PPP) [Relative time] 0.9 {INR} Normal <=3.5 [facility] Comment on above: Result Comment: INR has no normal range. INR Therapeutic range is: 2.0-3.0 (AF, CVA, TIAs, DVT prophylaxis, acute DVT) 2.5[facility]3.5 [facility], [facility]oli) Performed By: #### P TINR ####[address] [address] PT Coag (PPP) [Time] 9.8 s Normal 9.2-11.7 [facility] Comment on above: Performed By: #### P TINR ####[address] [address] PTTon 10-23-2018 aPTT Coag (Bld) [Time] 24.3 s Normal 20.6-28.0 [facility] Comment on above: Performed By: #### P TT ####[facility] [place] [address] XR Chest 1 Viewon 10-23-2018 XR Chest [...] Electronically Signed in Other Vendor System) Normal [facility] .eGFRon 09-21-2018 eGFR Non-AA >60 Normal >=60 [facility] Comment on above: Result Comment: Resu [...] dosing. Performed By: #### E GFR #### [facility] [address] [place] [address] eGFR AA >60 Normal >=60 [facility] Comment on above: Result Comment: Resu lt = 0-14.9 mL/min/1.73 m2 Kidney failure or Dialysis Result = 15-29 mL/min/1.73 m2 Severe decrease in GFR Result = 30-59 mL/min/1.73 m2 Moderate decrease in GFR Result >= 60 mL/min/1.73 m2 Normal or increased GFR Performed By: #### E GFR #### [address] [address] Basic Metabolic Profileon Anion gap [Moles/Vol] 14 mmol/L Normal 7-17 [facility] Comment on above: Performed By: #### C [id number] #### [address] [address] Calcium [Mass/Vol] 9.0 mg/dL Normal 8.5-10.3 [facility] Comment on above: Performed By: #### C [id number] #### [address] [address] Chloride [Moles/Vol] 104 mmol/L Normal 98-110 [facility] Comment on above: Performed By: #### C [id number] #### [address] [address] CO2 [Moles/Vol] 22 mmol/L Normal 22-32 [facility] Comment on above: Performed By: #### C [id number] #### [address] [address] Creatinine [Mass/Vol] 1.11 mg/dL Normal 0.61-1.24 [facility] Comment on above: Performed By: #### C [id number] #### [address] [address] Glucose [Mass/Vol] 104 mg/dL Normal 74-118 [facility] Comment on above: Performed By: #### C [id number] #### [address] [address] Potassium [Moles/Vol] 3.7 mmol/L Normal 3.4-4.8 [facility] Comment on above: Performed By: #### C [id number] #### [address] [address] Sodium [Moles/Vol] 136 mmol/L Normal 133-142 [facility] Comment on above: Performed By: #### C [id number] #### [address] [address] Urea nitrogen [Mass/Vol] 15 mg/dL Normal 8-26 [facility] Comment on above: Performed By: #### C [id number] #### [address] [address] Urea nitrogen/Creatinin e [Mass ratio] 13.5 mg/mg Normal 10.0-20.0 [facility] Comment on above: Performed By: #### C [id number] #### [address] [address] CBC w/ Diffon 09-21-2018 Erythrocyte distribution width (RBC) [Ratio] 12.9 % Normal 11.6-14.8 [facility] Comment on above: Performed By: #### C BC #### [address] [address] Hematocrit (Bld) [Volume fraction] 43.5 % Normal 41.0-53.0 [facility] Comment on above: Performed By: #### C BC #### [address] [address] Hemoglobin (Bld) [Mass/Vol] 15.4 g/dL Normal 13.5-17.5 [facility] Comment on above: Performed By: #### C BC #### [address] [address] MCH (RBC) [Entitic mass] 31.2 pg Normal 27.0-35.0 [facility] Comment on above: Performed By: #### C BC #### [address] [address] MCHC (RBC) [Mass/Vol] 35.3 % Normal 31.0-37.0 [facility] Comment on above: Performed By: #### C BC #### [address] [address] MCV (RBC) [Entitic vol] 88.3 fL Normal 80.0-100.0 [facility] Comment on above: Performed By: #### C BC #### [address] [address] Platelet mean volume (Bld) [Entitic vol] 9.5 fL Normal 6.7-10.6 [facility] Comment on above: Performed By: #### C BC #### [address] [address] Platelets (Bld) [#/Vol] 222 x10*3/mcL Normal 150-350 [facility] Comment on above: Performed By: #### C BC #### [address] [address] RBC (Bld) [#/Vol] 4.93 x10*6/mcL Normal 4.30-5.80 [facility] Comment on above: Performed By: #### C BC #### [address] [address] WBC (Bld) [#/Vol] 8.7 x10*3/mcL Normal 4.5-11.0 [facility] Comment on above: Performed By: #### C BC #### [address] [address] Diff Autoon 09-21-2018 Baso Absolute 0.1 x10*3/mcL Normal 0.0-0.2 [facility] Comment on above: Performed By: #### . Automated Diff #### [address] [address] Basophils/100 WBC (Bld) 0.7 % Normal 0.0-1.2 [facility] Comment on above: Performed By: #### . Automated Diff #### [address] [address] Eos Absolute 0.4 x10*3/mcL Normal 0.0-0.4 [facility] Comment on above: Performed By: #### . Automated Diff #### [address] [address] Eosinophils/100 WBC (Bld) 4.4 % Normal 0.0-6.1 [facility] Comment on above: Performed By: #### . Automated Diff #### [place] [id number] Lymphocytes (Bld) [#/Vol] 2.6 x10*3/mcL Normal 1.0-4.8 [facility] Comment on above: Performed By: #### . Automated Diff #### [place] [id number] Lymphocytes/100 WBC (Bld) 29.8 % Normal 27.2-40.8 [facility] Comment on above: Performed By: #### . Automated Diff #### [place] [id number] Maury Absolute 0.7 x10*3/mcL Normal 0.3-1.1 [facility] Comment on above: Performed By: #### . Automated Diff #### [place] [id number] Monocytes/100 WBC (Bld) 7.7 % Normal 4.7-13.9 [facility] Comment on above: Performed By: #### . Automated Diff #### [place] [id number] Neutro Absolute 5.0 x10*3/mcL Normal 1.8-7.7 [facility] Comment on above: Performed By: #### . Automated Diff #### [place] [address] Neutro Auto 57.4 % Normal 47.2-70.8 [facility] Comment on above: Performed By: #### . Automated Diff #### [address] [address] ED Clinical Summaryon 2018 ED Clinical Summary [address] [id number] ED Clinical Summary Person Information Name: Armani Stevens [place] Age: 38 Years : 1980 Sex: Male PCP: Marital Status: Single Race: White Ethnicity: Not or Language: Serbian Visit Reason: Dizziness; Dizziness Acuity: 3 Enc Type: Emergency Med Service: Emergency Medicine Arrival: 09/20/2018 22:40:38 Discharge: 09/21/2018 00:15:00 LOS: 000 01:35 Checkin: 09/20/2018 22:40:38 Checkout: 09/21/2018 00:15:00 Dispo Type: Home or Self Care Address: [address] [facility] [address] Provider Notes: Diagnosis: 1:Dizziness Problems Active No [...] range between ( 27.2 and 40.8 ) Maury Auto: 7.7 % -- Normal range between [...] range between ( 41.0 and 53.0 ) Maury Absolute: 0.7 x10 MCH: 31.2 pg -- [...] Follow up: With: Address: When: Call the [facility] physician referral line [phone] , only if needed Discharge Orders: Discharge Patient 09/21/18 0:08:00 EDT, Discharge to Home, Self, Dizziness Return to Work/School 09/20/18 22:40:00 EDT, 09/21/18 0:09:00 EDT, 09/20/18 22:40:00 EDT Patient Education Information: DIZZINESS, Unk Cause AAPCC Poison Help line: . [facility] Hotline: [place] Tobacco Quit Line: [facility] ([place], [place]) [address]: [phone] [facility] ([place], [place]) [address]: [phone] [facility] [address] [place], [place]: [phone] Normal [facility] ED Note-Physicianon 09-22-19 ED Note-Physician Chief [...] in this document, created by the medical insurance claims specialist for me, accurately reflects the services I [...] 23:08 57.4 Lymph Auto 09/20/18 23:08 29.8 Maury Auto 09/20/18 23:08 7.7 Eos Auto 09/20/18 23:08 4.4 Basophil Auto 09/20/18 23:08 0.7 Neutro Absolute 09/20/18 23:08 5.0 Lymph Absolute 09/20/18 23:08 2.6 Maury Absolute 09/20/18 23:08 0.7 Eos Absolute 09/20/18 [...] Milan Tran MD 09/21/2018 01:12 EDT Normal [facility] Ambulatory Patient Education on 02-08-2018 Ambulatory Patient Education Patient Education Materials Name: Armani Stevens Current Date: 02/08/2018 10:33:59 [place] : 1980 The following sheet(s) are the Patient Education Leaflets for ArmaanMar shepardnoris [place] [facility] Elbow Fracture You have a break [...] wet, you can dry it with a wheelchair rental clerk. ? You may use acetaminophen or ibuprofen [...] as directed by your healthcare provider ? [phone] [employer]. [address] [place] [address], [place] [address]. All rights reserved. This information is not intended as a substitute for professional medical care. Always follow your healthcare professional's instructions. Normal [facility] Family Medicine Office/Clini c Noteon 02-08-2018 Family Medicine Office/Clinic Note Chief Complaint patient [...] qualifying data available. Electronically signed by ___ Rocael WOODSJames 02/08/18 10:28 EST Normal [facility] XR Elbow 4 Views Lefton 11-2 XR Elbow 4 Views Left CLINICAL HISTORY: [...] Electronically Signed in Other Vendor System) Normal [facility] Encounters Encounter Date Encounter Type Care Provider Facility Start: 02-02-2024 ambulatory [facility] Start: 02-01-2024 ambulatory [facility] Start: 01-31-2024 End: 02-02-2024 Evaluation and management of inpatient VALENTIN ALEXANDER [facility] Start: 08-02-2021 End: 08-02-[address] NONE LISTED REQUEST Facility: Start: 11-23-2018 End: 11-23-2018 Emergency department patient visit Arabella Fidelia Edwards Facility:[facility] Start: 10-23-2018 End: 10-23-2018 Emergency department patient visit Milan Axel Artieger Facility:[facility] Start: 09-21-2018 End: 09-21-2018 Emergency department patient visit MILAN TRAN Facility:[facility] Payers Date Payer Category Payer Unknown [id number] 2023 Unknown [id number] 2018 Worker's Compensation 2018 Unknown 1980 Unknown [id number] 2.16.8 [id number] 1980 Unknown [id number] 2.16.8 [id number] 1980 Unknown [id number] 2.16.8 [id number] 1980 Unknown [id number] 2.16.84 [id number] 1980 Unknown [id number] 2.16.8 [id number] 1980 Unknown [id number] 2.16.8 [id number] 1980 Unknown [id number] 2.16.8 [id number] 1980 Unknown [id number] 2.16.8 [id number] 1959 Unknown [id number] Summary Purpose Family History No Family History Records FoundNo Family History Records FoundNo Family History Records FoundNo Family History Records Found Advance Directives No Advanced Directives Records FoundNo Advanced Directives Records FoundNo Advanced Directives Records FoundNo Advanced Directives Records Found Additional Source Comments (unrecognized sect ion and content) No Status Records FoundNo Status Records FoundNo Status Records FoundNo Status Records Found INFORMATION SOURCE (unrecogn ized section and content) DATE CREATED AUTHOR 12/20/2018 [facility] DATE CREATED AUTHOR AUTHOR'S ORGANIZ ATION 08/06/2021 [facility] DATE CREATED AUTHOR AUTHOR'S ORGANIZ ATION 02/03/2024 [facility] DATE CREATED AUTHOR AUTHOR'S ORGANIZ ATION 02/09/2024 [facility] FOR RECORDS PERTAINING TO PATIENTS WHO ARE [...] BE BASED ON THE PRIMARY CLINICAL RECORDS. [facility] [employer] [facility]. provides no warranty or guarantee of the accuracy or completeness of information in this document.
--- NOTE | 2024-02-10 04:38 | ED_ITS ---
HPI - Dental/Oral General Chief complaint: Dental/Oral Stated complaint: TOOTH PAIN Time Seen by Provider: 02/10/24 04:33 Source: patient Mode of arrival: walk-in Limitations: no limitations History of Present Illness HPI Narrative: presents complains of dental pain. Started this AM. throbbing pain. no problem swallowing. No fever or chills Related Data Home Medications ?Medication ?Instructions ?Recorded ?Confirmed metformin 500 mg tablet 1,000 mg PO DAILY 02/10/24 02/10/24 Allergies Allergy/AdvReac Type Severity Reaction Status Date / Time No Known Drug Allergies Allergy Verified 02/10/24 04:30 Review of Systems 2 ROS0 Status of ROS 10 or more systems reviewed and unremark able except as noted in history and below PFSH PFSH Social History Little interest or pleasure in doing things: not at all Feeling down, depressed, or hopeless: not at all Exam Constitutional Vital Signs, click to edit/add: Last Vital Signs Temp 98.1 F 02/10/24 04:23 Pulse 113 H 02/10/24 04:23 Resp 24 H 02/10/24 04:23 BP 172/100 H 02/10/24 04:23 Pulse Ox 98 02/10/24 04:23 O2 Del Method Room Air 02/10/24 04:23 Common normals: no apparent distress, average body habitus, oriented x3, no limitations, healthy appearing, alert and well nourished [facility] Common normals: normocephalic and head/scalp atraumatic Teeth and gingiva image: 2 1. dental caries and tender Eye Common normals: EOMs intact bilaterally and conjunctivae normal Respiratory Common normals: normal respiratory effort, no retractions and no use of accessory muscles Cardio Common normals: regular rate, regular rhythm, S1 normal heart sound and S2 normal heart sound Extremity Common normals: normal to inspection and full ROM Neuro Common normals: oriented x3, CN's II-XII intact bilaterally, moves all extremities and no focal motor deficits Psych Appearance: grossly normal Course Vital Signs Vital signs: Vital Signs Temperature 98.1 F 02/10/24 04:23 Pulse Rate 113 H 02/10/24 04:23 Respiratory Rate 24 H 02/10/24 04:23 Blood Pressure 172/100 H 02/10/24 04:23 Pulse Oximetry 98 02/10/24 04:23 Oxygen Delivery Method Room Air 02/10/24 04:23 Temperature 98.1 F 02/10/24 04:23 Pulse Rate 113 H 02/10/24 04:23 Respiratory Rate 24 H 02/10/24 04:23 Blood Pressure 172/100 H 02/10/24 04:23 Pulse Oximetry 98 02/10/24 04:23 Oxygen Delivery Method Room Air 02/10/24 04:23 MDM - Dental/Oral MDM Narrative Medical decision making narrative: presents with dental pain. dental caries. throbbing pain and suspected dental abscess. Prescribed amoxicillin and advised to followup with his dentist Discharge Plan Discharge Chief Complaint: Dental/Oral Clinical Impression: Dental abscess Patient Disposition: Home, Self-Care Prescriptions / Home Meds: No Action metformin 500 mg tablet 1,000 mg PO DAILY Print Language: Setswana Instructions: Dental Abscess (ED) Additional Instructions: follow up with your dentist Referrals: Physician,Non-Staff, MD [Primary Care Provider] - 1 week Discharge Date/Time: 02/10/24 05:09
[2024-02-10] MEDS: AMOXICILLIN 500 MG CAPSULE 1000 MG PO (05:05)
[2024-02-10] MEDS: HYDROCODONE/ACET 5-325 MG TABLET 2 TAB PO (05:05)
[2024-02-10] MEDS: BENZOCAINE 30 ML, lidocaine HCL 15 ML MM (05:06)
== END 2024-02-10 05:09 | disposition home or self-care (01) ==
PROVIDERS: Emergency Provider Internal Medicine
DX: K04.7 Periapical abscess without sinus (principal)
CPT/HCPCS: 99284

== ENCOUNTER 2025-01-05 09:14 | Emergency (ER) | payer BC, SELFPAY ==
[2025-01-05 09:21] VITALS: BP 133/87; PULSE 137; TEMP 39.4; O2SAT 97; BMI 39.3
--- OUTSIDE RECORDS SUMMARY | 2025-01-05 09:22 | XMS_ITS | Clinical Summary ---
Author Organization [employer] tem Address [facility] [place]-[id number] [address] [place] [address] Care Team Providers Care Geophysicist Name Role Phone TaylorcorinaAxel DO Primary Care Provider [phone] Allergies No known active allergies Medications MedicationSigDispense QuantityRefillsLast FilledStart DateEnd DateStatus tirzepatide (MOUNJARO) 5 mg/0.5 mL pen injector Indications:Type 2 diabetes mellitus without complication, without long-term current use of insulin ([facility])Inject 5 mg under the skin every 7 days. 6 mL 5Active atorvastatin (LIPITOR) 20 mg tablet Indications:Type 2 diabetes mellitus without complication, without long-term current use of insulin ([facility])TAKE 1 TABLET BY MOUTH IN THE MORNING 90 tablet 5Active metFORMIN (GLUCOPHAGE) 500 mg tablet Indications:Type 2 diabetes mellitus without complication, without long-term current use of insulin ([facility])TAKE 1 TABLET BY MOUTH TWICE DAILY WITH MEALS IN THE MORNING AND IN THE EVENING 180 tablet 5Active metFORMIN (GLUCOPHAGE) 500 mg tablet Indications:Type 2 diabetes mellitus without complication, without long-term current use of insulin ([facility])TAKE 1 TABLET BY MOUTH TWICE DAILY WITH MEALS (IN THE MORNING AND EVENING) 180 tablet Discontinued Active Problems ProblemNoted DateDiagnosed DateH/O Copeland's palsy03/29/2024 Overview (03/29/2024): Left face Resolved Problems ProblemNoted DateDiagnosed DateResolved DateWeakness on left side of face Encounters DateTypeDepartmentCare ZrcoRpcquqzybgc52/21/2025Refill [facility] Internal Medicine - Family Medicine [address] [place] [address] Axel Ramos, Type 2 diabetes mellitus without complication, without long-term current use of insulin ([facility])11/30/2024[facility] [address] [place] [address] Axel Ramos DO Type 2 diabetes mellitus without complication, without long-term current use of insulin ([facility])10/13/2024 1:30 PM EDTOffice Visit [facility] [address] [place] [address] Axel Ramos DO Type 2 diabetes mellitus without complication, without long-term current use of insulin ([facility]) (Primary Dx); Class 3 severe obesity due to excess calories with serious comorbidity and body mass index (BMI) of40.0 to 44.9 in adult ([facility])10/13/2024Results Follow-Up [facility] Internal [facility] [address] [place] [address] Axel Ramos DO Lipid profile, Hemoglobin A1c, Comprehensive metabolic panel10/13/2024Travelfrom Last 3 Months Immunizations ImmunizationAdministration DatesNext BkcKJV6607/29/2020 Family History Medical HistoryRelationNameCommentsADD / ADHDDaughterLilyannaDrug abuseFather DiabetesMaternal GrandmotherCOPDMotherDiabetesMotherHypertensionMotherADD / ADHD Son 1BlakeADD / ADHDSon 2GreysonADD / ADHDSon 3ChaseRelationNameStatusComments DaughterLilyannaAliveFatherDeceasedMaternal GrandmotherMotherAliveSon 1Blake AliveSon 2GreysonAliveSon 3ChaseAlive Social History Tobacco UseTypesPacks/DayYears UsedDateSmoking Tobacco: Every DayCigarettes Smokeless Tobacco: FormerChew Tobacco Cessation:Ready to Q uit: Not Asked; Counseling Given: Not Answered Alcohol UseStandard Drinks/WeekCommentsNot Currently0 (1 standard drink = 0.6 oz pure alcohol)[facility] UtilitiesAnswerDate RecordedIn the past 12 months has the electric, gas, oil, or water company threatened to shut off services in your home?No02/01/2024UDIT-CAnswerDate RecordedQ1: How often do you have a drink containing alcohol?Never02/01/2024Q2: How many drinks containing alcohol do you have on a typical day when you are drinking?Patient does not drink02/01/2024Q3: How often do you have six or more drinks on one occasion?Never02/01/2024HQ-2 AnswerDate RecordedTotal Ntcwa390PRAPARE - TransportationAnswerDate RecordedIn the past 12 months, has lack of transportation kept you from medical appointments or from getting medications?No02/01/2024In the past 12 months, has lack of transportation kept you from meetings, work, or from getting things needed for daily living?No02/01/2024Housing InstabilityAnswerDate RecordedAre you worried or concerned that in the next two months you may not have stable housing that you own, rent or stay in as a part of a household?No02/01/2024 ChildcareAnswerDate NsqvljxlArpgzwhybHjmndzd91/12/2019EmploymentAnswerDate SiwvqansXzjykjafjiCfptizt30/12/2019Hunger ScreeningAnswerDate RecordedWithin the past 12 months we worried whether our food would run out before we got money to buy more.Never True10/13/2024Within the past 12 months the food we bought just didn't last and we didn't have money to get more.Never True10/13/2024Sex and Gender InformationValueDate RecordedSex Assigned at BirthNot on fileLegal Sex Male10/20/2014 11:54 AM EDTGender IdentityNot on fileSexual OrientationNot on file Last Filed Vital Signs Vital SignReadingTime TakenCommentsBlood Qqeejovb870/8410/13/2024 2:27 PM EDT Dmvvb2288/30/2025 1:55 PM HLSIfawrxfdtzf23.8 ??C (98.3 ??F)10/13/2024 1:55 PM EDTRespiratory Rccq906410/13/2024 1:55 PM EDTOxygen Lltsowinir70%10/13/2024 1:55 PM EDTInhaled Oxygen Concentration--Xdntcl536.1 kg (324 lb 3.2 oz)10/13/2024 1:55 PM CLLUhljli910.4 cm (6' 1 )10/13/2024 1:55 PM EDTBody Mass Index42.77 10/13/2024 1:55 PM EDT Plan of Treatment DateTypeDepartmentCare Team (Latest Contact Info)Xbyormwewdj87/05/2025 8:30 AM ESTOffice Visit [facility] [address] [place] [address] Axel Ramos, DO [address] [place] [address] Health MaintenanceDue DateLast DoneCommentsDiabetic Ophthalmology Exam1982 Tobacco Ttkscwfaak1982Adult BMI Follow Up Plan01/27/2000Influenza Vaccine 11/15/2024Diabetic Foot Exam/dult BMI Unlqarpzg47/30/2026 10/13/2024Depression Iwrcjrlwj17/Tobacco Bdtjyhoqc48/30/2026 10/13/2024Statin Use: Ncbnance49/16//DTaP,Tdap and Td Vaccines (2 - Tdap) Goals GoalPatient Goal TypeAssociated ProblemsRecent ProgressPatient-Stated?Author Safe transition to home with spouse Linda Antonio RN Note: Evaluation of progress towards goal: Safe transition to home with spouse Medical Devices Not on file Procedures Procedure NamePriorityDate/TimeAssociated DiagnosisCommentsCOMPREHENSIVE METABOLIC ZPKSDMvofvqt65/30/2025 2:31 PM EDT Type 2 diabetes mellitus without complication, without long-term current use of insulin ([facility]) HEMOGLOBIN R9WZtsqdtn23/30/2025 2:31 PM EDT Type 2 diabetes mellitus without complication, without long-term current use of insulin ([facility]) LIPID KHEKHZZXoyzgoi99/30/2025 2:31 PM EDT Type 2 diabetes mellitus without complication, without long-term current use of insulin ([facility]) from Last 3 Months Results * (ABNORMAL) Hemoglobin A1c (10/13/2024 2:31 PM EDT)ComponentValueRef RangeTest MethodAnalysis TimePerformed AtPathologist SignatureHEMOGLOBIN A1C5.9(H)4.4 - 5.6 %10/13/2024 8:[address] [facility]Comment: ?ADA Guidelines ?Result ?HgbA1c ? Normal : ? less than 5.7 % ? Prediabetes : ?5.7 % ??to 6.4 % Diabetes : > 6.4 % ?Use with caution in patients with abnormal hemoglobin variants as ??the half-life of red blood cells and in vivo glycation rates are ??affected. EST. AVERAGE QVITFEB329kq/dL10/13/2024 8:[address] [facility] LABORATORYSpecimen (Source)Anatomical Location / LateralityCollection Method / VolumeCollection TimeReceived TimeBloodVenous blood / Vnhzbmu1910/13/2024 2:31 PM EDT10/13/2024 2:31 PM EDT Narrative Authorizing ProviderResult TypeResult StatusAxel ROYALAB BLOOD ORDERABLES Final ResultPerforming OrganizationAddressCity/State/ZIP CodePhone Number [facility] [address] [place] [address], [place] [phone] * (ABNORMAL) Lipid profile (10/13/2024 2:31 PM EDT)ComponentValueRef RangeTest MethodAnalysis TimePerformed AtPathologist GffqvqbyrXPOAZEDWGLJ013(L)150 - 200 mg/dL10/13/2024 7:[address] [facility] DAYXLNMBYSBFDXLUHHNZAC171 27 - 150 mg/dL10/13/2024 7:[address] [facility]ORATORYHDL BQEDGWELSYN61(L)>39 mg/dL10/13/2024 7:[address] [facility]Comment: HDL <40 mg/dL - High Risk HDL > or = 40mg/dL- Desirable HDL >60 mg/dL - Negative Risk LDL (CALC)69<130 mg/dL10/13/2024 7:[address] [facility] Comment: LDL <100 mg/dL - Desirable LDL >160 mg/dL - High Risk CHOLESTEROL:HDL3.81.0 - 5.007 7:[address] [facility] LABORATORYVERY LOW ZFSBEVWLQFG095 - 30 mg/dL10/13/2024 7:[address]ORATORYSpecimen (Source)Anatomical Location / Laterality Collection Method / VolumeCollection TimeReceived TimeBloodVenous blood / Ialsnlb7210/13/2024 2:31 PM EDT10/13/2024 2:31 PM EDT Narrative Authorizing ProviderResult TypeResult StatusAxel [place] BLOOD ORDERABLES Final ResultPerforming OrganizationAddressCity/State/ZIP CodePhone Number [facility] [address] [place] [address], [place] [phone] * (ABNORMAL) Comprehensive metabolic panel (10/13/2024 2:31 PM EDT)Component ValueRef RangeTest MethodAnalysis TimePerformed AtPathologist SignatureSODIUM 375047 - 146 mmol/L10/13/2024 7:[address] [facility] POTASSIUM5.1(H)3.5 - 5.0 mmol/L10/13/2024 7:[address] [facility]ORYComment:R-Specimen moderately hemolyzed, results increasedCHLORIDE 51275 - 109 mmol/L10/13/2024 7:[address] [facility] CARBON DJDQXNZ4435 - 32 mmol/L10/13/2024 7:[address] [facility]ORATORYANION NVU922 - 15 mmol/L10/13/2024 7:[address] [facility]ORATORYBLOOD UREA KTEJZQGI434 - 23 mg/dL10/13/2024 7:[address] LABORATORYCREATININE0.940.60 - 1.30 mg/dL10/13/2024 7:[address]ORYComment:METHOD TRACEABLE TO IDAR WIEHBZHZAOFPLNL011(H)65 - 99 mg/dL10/13/2024 7:[address] LABORATORYCALCIUM9.28.5 - 10.5 mg/dL10/13/2024 7:[address]ORATORYTOTAL PROTEIN7.56.0 - 8.0 g/dL10/13/2024 7:[address] LABORATORYALBUMIN4.33.2 - 5.3 g/dL10/13/2024 7:[address]ORATORYALKALINE ZQCTNUWRTPV44227 - 130 U/L 10/13/2024 7:[address] [facility] YEAINSNLCTVPH97<=41 U/L 10/13/2024 7:[address] [facility] DYICKZOTSBLSX05<=40 U/L 10/13/2024 7:[address] [facility] LABORATORYBILIRUBIN,TOTAL0.30.3 - 1.2 mg/dL10/13/2024 7:[address] [facility]ORYEGFR Non- Race Dependent>90>=60 ml/min/1.73sq.m010/13/2024 7:[address]ORYComment: Reported eGFR is based on the CKD-EPI 2020 equation that does not use a race coefficient. Specimen (Source)Anatomical Location / LateralityCollection Method / Volume Collection TimeReceived TimeBloodVenous blood / Gismnfn2610/13/2024 2:31 PM EDT 10/13/2024 2:31 PM EDT Narrative Authorizing ProviderResult TypeResult StatusJoeyad Ramos DOLAB BLOOD ORDERABLES Final ResultPerforming OrganizationAddressCity/State/ZIP CodePhone Number [facility] [address] [place] [address], from Last 3 Months Insurance [address] [place] [address] Advance Directives * Full Code (Latest Code Status on File) Date ActivatedDate TglusszfocpBmnmbhuz13/17/2024 1:00 AM02/02/2024 6:45 PM Care Teams Team MemberRelationshipSpecialtyStart DateEnd Date Axel Ramos DO [address] [place] [address] PCP - GeneralInternal Medicine03/29/24
--- OUTSIDE RECORDS SUMMARY | 2025-01-05 09:22 | XMS_ITS | Encounter Summary ---
Author Organization [employer] tem Address [id number] [address] [place] [address] Care Team Providers Care Crm System Administrator Name Role Phone Axel Ramos DO Primary Care Provider [phone] Reason for Visit * ReasonCommentsMed Refill Encounter Details DateTypeDepartmentCare Team (Latest Contact Info)Bykcxtybepe75/21/2025Refill [facility] - Family Medicine [address] [place] [phone] Axel Ramos DO [address] [place] [address] Type 2 diabetes mellitus without complication, without long-term current use of insulin ([facility]) Social History Tobacco UseTypesPacks/DayYears UsedDateSmoking Tobacco: Every DayCigarettes Smokeless Tobacco: FormerChewAlcohol UseStandard Drinks/WeekCommentsNot Currently0 (1 standard drink = 0.6 oz pure alcohol)[facility] UtilitiesAnswerDate RecordedIn the past 12 months has the electric, gas, oil, or water company threatened to shut off services in your home?No4AUDIT-CAnswerDate RecordedQ1: How often do you have a drink containing alcohol?Never02/01/2024Q2: How many drinks containing alcohol do you have on a typical day when you are drinking?Patient does not drink02/01/2024Q3: How often do you have six or more drinks on one occasion?Never4PHQ-2AnswerDate RecordedTotal Score0 10/13/2024PRAPARE - TransportationAnswerDate RecordedIn the past 12 months, has lack of transportation kept you from medical appointments or from getting medications?No02/01/2024In the past 12 months, has lack of transportation kept you from meetings, work, or from getting things needed for daily living?No 02/01/2024Housing InstabilityAnswerDate RecordedAre you worried or concerned that in the next two months you may not have stable housing that you own, rent or stay in as a part of a household?No02/01/2024hildcareAnswerDate Recorded PoikfugwcPbztdlf03/12/2019EmploymentAnswerDate RecordedEmploymentUnknown 08/26/2018Hunger ScreeningAnswerDate RecordedWithin the past 12 months we worried whether our food would run out before we got money to buy more.Never True10/13/2024Within the past 12 months the food we bought just didn't last and we didn't have money to get more.Never True10/13/2024Sex and Gender Information ValueDate RecordedSex Assigned at BirthNot on fileLegal YmbZmml5710/20/2014 11:54 AM EDTGender IdentityNot on fileSexual OrientationNot on filedocumented as of this encounter Plan of Treatment DateTypeDepartmentCare Team (Latest Contact Info)Lniiybdapsx83/05/2025 8:30 AM ESTOffice Visit [facility] [address] [place] [address] Axel Ramos, [address] [place] [address] documented as of this encounter Goals GoalPatient Goal TypeAssociated ProblemsRecent ProgressPatient-Stated?Author Safe transition to home with spouse Linda Antonio RN Note: Evaluation of progress towards goal: Safe transition to home with spouse documented as of this encounter Visit Diagnoses Diagnosis Type 2 diabetes mellitus without complication, without long-term current use of insulin ([facility]) documented in this encounter Additional Health Concerns AssessmentNoted TimePHQ-9 Depression Total Score: 1:54 PM EDT documented as of this encounter Care Teams Team MemberRelationshipSpecialtyStart DateEnd Date Axel Ramos DO [address] [place] [address] PCP - GeneralInternal Medicine03/29/24documented as of this encounter
--- OUTSIDE RECORDS SUMMARY | 2025-01-05 09:24 | XMS_ITS | CCD ---
Author Organization [facility] CliniSyid Care Team Providers Care Stores Laborer Name Role Phone MILAN TRAN Attending Unavailab Arabella Torres Attending Unava ilMilan Paris Attending Unavailable DR MARCOS NONE LISTED Primary Care Unavaila KELLIE Vincent Consulting Unavailable KELLIE KHALIL Attending Unavailable KELLIE KHALIL Admitting Unavailable Meño Huerta Unavailable Unavailable Primary Care Provider UnavailKunal Jimenez DO Primary Care Provider Kunal Mcleod DO Primary Care Provider [phone] VALENTIN ALEXANDER Admitting Unavailable JUMARIANA GARVEYUHAMMAD Celia Attending Unavailable BRYNA CEE Referring Unavailable [facility] Consult[facility] U KUNAL Flynn Referring Unavailable KUNAL MCLEOD Primary Care Unavailable KUNAL MCLEOD Referring Unavailable KUNAL MCLEOD Primary Care Unavailable KUNAL MCLEOD Attending Unavailable LUIS CHAUDHRYINAB Referring Unavailable KUNAL MCLEOD Primary Care Unavailable KUNAL MCLEOD Attending Unavailable KUNAL MCLEOD Referring Unavailable KUNAL MCLEOD Primary Care Unavailable KUNAL MCLEOD Attending Unavailable KUNAL MCLEOD Referring Unavailable KUNAL MCLEOD Primary Care Unavailable Kunal Mcleod DO Primary Care Provider Allergies Allergy ClassificationReported Allergen(s)Allergy TypeDate of OnsetReaction(s) Facility (1 source)No Known Medication Allergies; Translations: [No Known Medication Allergies]Propensity to adverse reactions to drug (disorder)[facility] Repository Medications Current Medications MedicationDrug Class(es)DatesSig (Normalized)Sig (Original)atorvastatin 20 mg oral tablet (8 sources)HMG-CoA Reductase InhibitorStart: 06-09-2024 End: 64-23-2882fixr 1 tablet by mouth in the morningatorvastatin (LIPITOR) 20 mg tablet Indications: Type 2 diabetes mellitus without complication, without long- term current use of insulin ([facility]) TAKE 1 TABLET BY MOUTH IN THE MORNING 90 tablet 11/30/2024 ActivemetFORMIN hydrochloride 500 mg oral tablet (13 sources)BiguanideStart: 05-28-2024 End: 67-31-4525uvrd 1 tablet by mouth twice daily at mealtimemetFORMIN (GLUCOPHAGE) 500 mg tablet Indications: Type 2 diabetes mellitus without complication, without long-term current use of insulin ([facility]) TAKE 1 TABLET BY MOUTH TWICE DAILY WITH MEALS IN THE MORNING AND IN THE EVENING 180 tablet 01/04/2025 ActiveStart: 02-02-2024 End: 69-05-0575lroe 1 tablet by mouth in the morning, then take 1 tablet by mouth at mealtimemetFORMIN (GLUCOPHAGE) 500 mg tablet Take 1 tablet (500 mg total) by mouth in the morning and 1 tablet (500 mg total) in the evening. Take with meals. Do all this for 90 days. 180 tablet 02/02/2024 05/02/2024 Active semaglutide (OZEMPIC) 0.25 mg or 0.5 mg (2 mg/3 mL) pen injector (1 source)Start: 27-66-7127ogmkpvqjfwi (OZEMPIC) 0.25 mg or 0.5 mg (2 mg/3 mL) pen injector Indications: Type 2 diabetes mellitus without complication, without long-term current use of insulin ([facility]) Inject 0.5 mg under theskin every 7 days. 6 mL 1 06/09/2024 Activetirzepatide (MOUNJARO) 5 mg/0.5 mL pen injector (8 sources)Start: 75-19-0052pdfeyiubtcm (MOUNJARO) 5 mg/0.5 mL pen injector Indications: Type 2 diabetes mellitus without complication, without long-term current use of insulin ([facility]) Inject 5 mg under the skin every 7 days.6 mL 1 06/22/2024 ActiveStart: 06-10-2024 End: 43-53-7942iuyznfkrqyt (MOUNJARO) 5 mg/0.5 mL pen injector Indications: Type 2 diabetes mellitus without complication, without long-term current use of insulin ([facility]) Inject 5 mg under the skin every 7 days.6 mL 1 06/10/2024 06/22/2024 Discontinued (Reorder)Start: 44-61-1732lgopuzcsebi (MOUNJARO) 5 mg/0.5 mL pen injector Indications: Type 2 diabetes mellitus without compli cation, without long-term current use of insulin ([facility]) Inject 5 mg under the skin every 7 days.6 mL 1 06/10/2024 Active Problems Active Problems Problem ClassificationProblemDateDocumented DateEpisodic/ChronicAcute cerebrovascular disease (5 sources)Ischemic stroke; Translations: [Cerebral infarction, unspecified] Onset: [id number] mellitus without complication (11 sources)Type 2 diabetes mellitus without complication; Translations: [Type 2 diabetes mellitus without complications]Onset: hronic Essential hypertension (3 sources)Essential hypertension; Translations: [Essential (primary) hypertension]Onset: 449402-08-9051TxtwrgxSpyfw nutritional; endocrine; and metabolic disorders (3 sources)Severe obesity; Translations: [Class 3 severe obesity due to excess calories with serious comorbidity and body mass index (BMI) of 40.0 to 44.9 in adult ([facility])]99-64-4739TgqogdzBnfks nutritional; endocrine; and metabolic disorders (1 source)Morbid (severe) obesity due to excess calories; Translations: [Morbid (severe) obesity due to excess calories]Onset: 05-96-5029RjohdwrRqcxz nutritional; endocrine; and metabolic disorders (1 source)Body mass index (BMI) 40.0-44.9, adult; Translations: [Body mass index (BMI) 40.0-44.9, adult]Onset: 16-51-7692ZngvxlnIaawu upper respiratory infections (1 source)Acute upper respiratory infection, unspecified; Translations: [ACUTE UP RESPIRATORY INFECTION UNS]Onset: 19-54-5973BwkggmdqZzjmaigio-related disorders (1 source)Nicotine dependence, cigarettes, uncomplicated; Translations: [NICOTINE DEPEND CIGARETTES UNCOMP]Onset: 39-74-4789TezwgixGxeqddbvnyrm (2 sources)COUGH, UNSPECIFIED; Translations: [COUGH, UNSPECIFIED]Onset: 51-43-8153Sotfefiaqqjh (1 source)CONTACT W/AND (SUSP) EXPOS COVID-19; Translations: [CONTACT W/AND (SUSP) EXPOS COVID-19]Onset: 30-01-3665Kgmmrycctwmm (1 source)Obesity, class 3; Translations: [Obesity, class 3]Onset: 06-09-2024 Unclassified (1 source)New PatientOnset: 03-29-2024 Past or Other Problems Problem ClassificationProblemDateDocumented DateEpisodic/ChronicMood disorders (11 sources)Mood disordersOnset: 02-01-2024 Resolved: Other connective tissue disease (11 sources)Weakness of left facial muscle; Translations: [Facial weakness] Onset: 02-01-2024 Resolved: 104295-67-7447BphtmywhWftbw connective tissue disease (1 source)Facial weakness; Translations: [Facial weakness]Onset: 01-31-2024 EpisodicOther nervous system disorders (10 sources)H/O: Copeland's palsy; Translations: [Personal history of other diseases of the nervous system and sense organs]Onset: 593931-73-7039PrwadeffOeajo upper respiratory disease (1 source)Other diseases of pharynx; Translations: [Other diseases of pharynx] Onset: 14-36-0641UenwfhdiVpzqpjia codes; unclassified (1 source)Pain, unspecified; Translations: [Pain, unspecified]Onset: 02-01-2024 EpisodicUnclassified (1 source)COUGH, UNSPECIFIED; Translations: [COUGH, UNSPECIFIED]Onset: 08-02-2021 Results Test NameValueInterpretationReference RangeFacilityCOMPREHENSIVE METABOLIC PANEL on 76-59-6560Whdsdug [Mass/Vol]4.3 g/dLNormal3.2-5.3PFayette County Memorial Hospital Ambulatory PPGComment on above:Performed By: #### CMP #### [facility] ([facility]) [address] [place] [address] VIRALP [Catalytic activity/Vol]110 U/LAcnfuy92-378BptAesmzh Hospital Ambulatory PPGComment on above:Performed By: #### CMP #### [facility] ([facility]) [address] [place] [address] VIRALT [Catalytic activity/Vol]30 U/LNormal<=40[facility] Ambulatory PPGComment on above:Performed By: #### CMP #### [facility] ([facility]) [address] [place] [address] VIRAnion gap [Moles/Vol]11 mmol/LNormal5-15ProFirelands Regional Medical Center Ambulatory PPGComment on above:Performed By: #### CMP #### [facility] ([facility]) [address] [place] [address] VIRAST [Catalytic activity/Vol]26 U/LNormal<=41[facility] Ambulatory PPGComment on above:Performed By: #### CMP #### [facility] ([facility]) [address] [place] [address] VIRBilirubin [Mass/Vol]0.3 mg/dLNormal0.3-1.2PFayette County Memorial Hospital Ambulatory PPGComment on above:Performed By: #### CMP #### [facility] ([facility]) [address] [place] [address] VIRCalcium [Mass/Vol]9.2 mg/dLNormal8.5-10.5PFayette County Memorial Hospital Ambulatory PPGComment on above:Performed By: #### CMP #### [facility] ([facility]) [address] [place] [address] VIRChloride [Moles/Vol]105 mmol/WPmzlrk66-920QlkYtlukc Hospital Ambulatory PPGComment on above:Performed By: #### CMP #### [facility] ([facility]) [address] [place] [address] VIRCO2 [Moles/Vol]23 mmol/OXgsatm37-83GtuKhfvft Hospital Ambulatory PPGComment on above:Performed By: #### CMP #### [facility] ([facility]) [address] [place] [address] VIRCreatinine [Mass/Vol]0.94 mg/dLNormal0.60-1.30[facility] Ambulatory PPGComment on above:Result Comment: METHOD TRACEABLE TO IDMS STANDARDPerformed By: #### CMP #### [facility] ([facility]) [address] [place] [address] VIREGFR (CKD-EPI) NON-RACE DEPENDENT>^90Normal>=60ProFirelands Regional Medical Center Ambulatory PPGComment on above:Result Comment: Reported eGFR is based on the CKD-EPI 2020 equation that does not use a race coefficient.Performed By: #### CMP #### [facility] ([facility]) [address] [place] [address] VIRGlucose [Mass/Vol]107 mg/rVBdxb61-59XybSxculh Hospital Ambulatory PPGComment on above:Performed By: #### CMP #### [facility] ([facility]) [address] [place] [address] VIRPotassium [Moles/Vol]5.1 mmol/LHigh3.5-5.0[facility] Ambulatory PPGComment on above:Result Comment: R-Specimen moderately hemolyzed, results increasedPerformed By: #### CMP #### [facility] ([facility]) [address] [place] [address] VIRProtein [Mass/Vol]7.5 g/dLNormal6.0-8.0[facility] Ambulatory PPGComment on above:Performed By: #### CMP #### [facility] ([facility]) [address] [place] [address] VIRSodium [Moles/Vol]139 mmol/HGbafve279-113UapMjjkai Hospital Ambulatory PPGComment on above:Performed By: #### CMP #### [facility] ([facility]) [address] [place] [address] VIRUrea nitrogen [Mass/Vol]11 mg/dLNormal5-23[facility] Ambulatory PPGComment on above:Performed By: #### CMP #### [facility] ([facility]) [address] [place] [address] VIRComprehensive metabolic panelon 31-01-2219Jcpljzp [Mass/Vol] 4.3 g/dL3.2 - 5.3 g/dLProAtrium Health [facility] Health SystemALP [Catalytic activity/Vol]110 U/L 39 - 130 U/LProMedica Health SystemALT No additional P-5'-P [Catalytic activity/Vol]30 U/LNINF - 40 U/LProMedica Health SystemAnion gap [Moles/Vol]11 mmol/L5 - 15 mmol/LProMedica Health SystemAST [Catalytic activity/Vol]26 U/LNINF - 41 U/LProMedica Health SystemBilirubin [Mass/Vol]0.3 mg/dL0.3 - 1.2 mg/dL ProMrandolph medical centera [facility] SystemCalcium [Mass/Vol]9.2 mg/dL8.5 - 10.5 mg/dLProMedica Health SystemChloride [Moles/Vol]105 mmol/L98 - 109 mmol/LProMedica Health SystemCO2 [Moles/Vol]23 mmol/L22 - 32 mmol/LProMedica Health SystemCreatinine [Mass/Vol]0.94 mg/dL0.60 - 1.30 mg/dLAultman Orrville Hospital SystemComment on above: METHOD TRACEABLE TO IDMS STANDARDEGFR Non-Race Dependent- [facility] SystemComment on above:Reported eGFR is based on the CKD-EPI 2020 equation that does not use a race coefficient. Glucose [Mass/Vol]107 mg/qPFmfi43 - 99 mg/dLAultman Orrville Hospital SystemPotassium [Moles/Vol]5.1 mmol/LHigh3.5 - 5.0 mmol/LProMedica Health SystemComment on above:R-Specimen moderately hemolyzed, results increasedProtein [Mass/Vol]7.5 g/dL6.0 - 8.0 g/dLProAtrium Health [facility] Health SystemSodium [Moles/Vol]139 mmol/L134 - 146 mmol/LProMedica Health SystemUrea nitrogen [Mass/Vol]11 mg/dL5 - 23 mg/dL [facility] HospitalHEMOGLOBIN A1Con 87-41-3302Ijkmomt [Mass/Vol]123 mg/dL NormalPike Community Hospital Ambulatory PPGComment on above:Performed By: #### MARII #### [facility] ([facility]) [address] [place] [address] BUILsZ8b (Bld) [Mass fraction]5.9 %High4.4-5.6[facility] Ambulatory PPGComment on above:Result Comment: ADA Guidelines Result HgbA1c Normal : less than 5.7 % Prediabetes : 5.7 % to 6.4 % Diabetes : > 6.4 % Use with caution in patients with abnormal hemoglobin variants as the half-life of red blood cells and in vivo glycation rates are affected.Performed By: #### HA1C #### [facility] ([facility]) [address] [place] [address] VIRHemoglobin A1con 66-41-3401Lefyhez glucose Estimated from glycated hemoglobin (Bld) [Mass/Vol]123 mg/dLShelby Memorial HospitalHbA1c (Bld) [Mass fraction]5.9 %High4.4 - 5.6 %[facility] SystemComment on above:ADA Guidelines Result HgbA1c Normal : less than 5.7 % Prediabetes : 5.7 % to 6.4 % Diabetes : > 6.4 % Use with caution in patients with abnormal hemoglobin variants as the half-life of red blood cells and in vivo glycation rates are affected. Interpretation and review of laboratory resultsAbnormalUPMC Western Psychiatric HospitalLIPID PROFILEon 91-17-3772Gdquvfkezge [Mass/Vol]127 mg/dL Kbi138-879NzzCnkcga Hospital Ambulatory PPGComment on above:Performed By: #### LIPOtf #### [facility] ([facility]) [address] [place] [address] VIRCholesterol in HDL [Mass/Vol]33 mg/dLLow>39[facility] Ambulatory PPGComment on above:Result Comment: HDL <40 mg/dL - High Risk HDL > or = 40mg/dL- Desirable HDL >60 mg/dL - Negative RiskPerformed By: #### LIPR #### [facility] ([facility]) [address] [place] [address] VIRCholesterol in LDL [Mass/Vol]69 mg/dLNormal<130[facility] Ambulatory PPGComment on above:Result Comment: LDL <100 mg/dL - Desirable LDL >160 mg/dL - High RiskPerformed By: #### LIPR #### [facility] ([facility]) [address] [place] [address] VIRCHOLESTEROL:HDL3.4Dfatoa3.0-5.0[facility] Ambulatory PPGComment on above:Performed By: #### LIPR #### [facility] ([facility]) [address] [place] [address] VIRTriglyceride [Mass/Vol]125 mg/hXNjnocc26-303EglYqngyr Hospital Ambulatory PPGComment on above:Performed By: #### LIPR #### [facility] ([facility]) [address] [place] [address] VIRVERY LOW HJRIZNTJYBG47 mg/dLNormal0-30[facility] Ambulatory PPGComment on above:Performed By: #### LIPR #### [facility] ([facility]) [address] [place] [address] VIRLipid profileon 25-00-3368Nmkbxirjgmq [Mass/Vol]127 mg/dLLow 150 - 200 mg/dLAultman Orrville Hospital SystemCholesterol in HDL [Mass/Vol]33 mg/dLLow39 - PINF mg/dLAultman Orrville Hospital SystemComment on above:HDL <40 mg/dL - High Risk HDL > or = 40mg/dL- Desirable HDL >60 mg/dL - Negative Risk Cholesterol in HDL [Mass/Vol]3.8 mg/dL1.0 - 5.0[facility] Cholesterol in LDL [Mass/Vol]69 mg/dLNINF - 130 mg/dLShelby Memorial Hospital Comment on above:LDL <100 mg/dL - Desirable LDL >160 mg/dL - High Risk Cholesterol in VLDL [Mass/Vol]25 mg/dL0 - 30 mg/dLShelby Memorial Hospital Triglyceride [Mass/Vol]125 mg/dL27 - 150 mg/dLShelby Memorial HospitalNo Panel Informationon 58-14-1571Lkmwbkrmxfvgij and review of laboratory resultsAbnormal Prime Healthcare ServicesCOMPREHENSIVE METABOLIC PANELon 45-11-1099Bokzode [Mass/Vol]4.6 g/dLNoal3.2-5.3PSelect Medical Specialty [facility] Comment on above:Performed By: #### MARII 79797-9, RAUL CBCCelia #### [facility] ([id number]) [address] [place], [place] [address]SGQ [Catalytic activity/Vol]90 U/JOnbdta91-558UkwHwofes [place] HospitalComment on above:Performed By: #### Priyank COLVIN-1, RAUL, CBCA #### [facility] ([id number]) [address], [address] [place], [place] [address]FWK [Catalytic activity/Vol]85 U/LHigh0-40ProDayton Children'S Hospital HospitalComment on above:Performed By: ###Arabella VILLASEÑOR31-1, RAUL, CBCA #### [facility] ([id number]) [address], [address] [place], [place] [address]Wsssb gap [Moles/Vol]11 mmol/LNormal5-15ProDayton Children'S Hospital HospitalComment on above:Performed By: ###Arabella VILLASEÑOR31-1, RAUL, CBCA #### [facility] ([id number]) [address], [address] [place], [place] [address]BMO [Catalytic activity/Vol]53 U/LHigh0-41ProMediCherrington Hospital HospitalComment on above:Performed By: #### Arabella COLVIN31-1, RAUL, CBCA #### [facility] ([id number]) [address] [place], [place] [address]Gqzgwyxzn [Mass/Vol]0.3 mg/dLNormal0.3-1.2ProMedica Edgewater HospitalComment on above:Performed By: #### Priyank COLVIN-1, RAUL, CBCA #### [facility] ([id number]) [address] [place], [place] [address]Ytjwmch [Mass/Vol]9.5 mg/dLNormal8.5-10.5ProMedKettering Memorial Hospital HospitalComment on above:Performed By: #### Priyank COLVIN-1, RAUL, CBCA #### [facility] ([id number]) [address], [address] [place], [place] [address]Rnunzcky [Moles/Vol]100 mmol/IPvhrwk08-977AltRugoxw [place] HospitalComment on above:Performed By: #### Arabella COLVIN31-1, RAUL, CBCA #### [facility] ([id number]) [address], [address] [place], [place] [address]TS1 [Moles/Vol]25 mmol/IQmbtyn48-98AaqIuugkw [facility] Comment on above:Performed By: #### Priyank COLVIN-1, RAUL CBCA #### [facility] ([id number]) [address] [place], [place] [address]Zjepiohbqb [Mass/Vol]1.01 mg/dLNormal0.60-1.30ProMercy Health Clermont Hospitalca Edgewater HospitalComment on above:Result Comment: METHOD TRACEABLE TO IDMS STANDARD Performed By: #### Arabella COLVIN31-1, RAUL, CBCA #### [facility] ([id number]) [address] [place], [place] [address]yNUA (CKD-EPI) NON-RACE DEPENDENT>90Normal>59ProMedica [place] HospitalComment on above:Result Comment: Reported eGFR is based on the CKD-EPI 2020 equation that does not use a race coefficient.Performed By: #### Daniela COLVIN BMP, CBCA #### [facility] ([id number]) [address] [place], [place] [address]Bphtkde [Mass/Vol]145 mg/qRTvog54-10KzcSyndprChildren'S Hospital Of Columbus Comment on above:Performed By: #### Daniela COLVIN, RAUL, CBCCelia #### [facility] ([id number]) [address], [facility] [address] [place], [place] [address]Jsqtanqgi [Moles/Vol]4.1 mmol/LNormal3.5-5.0ProChildren'S Hospital Of ColumbusComment on above:Performed By: #### Daniela COLVIN BMP CBCCelia #### [facility] ([id number]) [address] [place], [place] [address]Tuqhsph [Mass/Vol]8.2 g/dLHigh6.0-8.0[facility] Comment on above:Performed By: ###Daniela VILLASEÑOR, RAUL CBCCelia #### [facility] ([id number]) [address] [place], [place] [address]Anpucg [Moles/Vol]136 mmol/IKkbzdm117-092GxvYhmrav [place] HospitalComment on above:Performed By: ###Daniela VILLASEÑOR, RAUL, CBCA #### [facility] ([id number]) [address] [place], [place] [address]Vxyq nitrogen [Mass/Vol]16 mg/dLNormal5-23ProChildren'S Hospital Of ColumbusComment on above:Performed By: #### Daniela COLVIN, RAUL, CBCA #### [facility] ([id number]) [address] [place], [place] [address]Bfqaaqwbrscjk metabolic panelon 07-47-6916Rfiigyp [Mass/Vol]4.6 g/dL3.2 - 5.3 g/dLAultman Orrville Hospital SystemALP [Catalytic activity/Vol]90 U/L39 - 130 U/[facility] SystemALT No additional P-5'-P [Catalytic activity/Vol] 85 U/LHigh0 - 40 U/[facility] SystemAnion gap [Moles/Vol]11 mmol/L5 - 15 mmol/[facility] SystemAST [Catalytic activity/Vol]53 U/LHigh0 - 41 U/L [facility] HospitalBilirubin [Mass/Vol]0.3 mg/dL0.3 - 1.2 mg/dLShelby Memorial HospitalCalcium [Mass/Vol]9.5 mg/dL8.5 - 10.5 mg/dLShelby Memorial Hospital Chloride [Moles/Vol]100 mmol/L98 - 109 mmol/[facility] SystemCO2 [Moles/Vol]25 mmol/L22 - 32 mmol/[facility] SouthCreatinine [Mass/Vol] 1.01 mg/dL0.60 - 1.30 mg/dLShelby Memorial HospitalComment on above:METHOD TRACEABLE TO [facility] STANDARDeGFR (CKD-EPI)non-race dependent- [facility] HospitalComment on above: Reported eGFR is based on the CKD-EPI 2020 equation that does not use a race coefficient. Glucose [Mass/Vol]145 mg/gFJjha82 - 99 mg/dLShelby Memorial Hospital Interpretation and review of laboratory resultsAbnoFormerly [facility] Potassium [Moles/Vol]4.1 mmol/L3.5 - 5.0 mmol/[facility] SystemProtein [Mass/Vol]8.2 g/dLHigh6.0 - 8.0 g/dLFormerly [facility], later [facility] System Morgantonodium [Moles/Vol]136 mmol/L134 - 146 mmol/[facility] SouthUrea nitrogen [Mass/Vol]16 mg/dL5 - 23 mg/dLPrime Healthcare ServicesHGB A1C (GLYCO-HGB)on 85-85-3892[place] [Mass/Vol]146 mg/dLNoElyria Memorial HospitalComment on above:Performed By: ###Cass COLVIN 47916-2, MALCOM CARTER #### [facility] ([id number]) [address] [place] [address], [address] [address]CaI1k (Bld) [Mass fraction]6.7 %High4.4-5.6Kindred Hospital LimaComment on above:Result Comment: NOTE ADA Guidelines Result HgbA1c Normal : less than 5.7 % Prediabetes : 5.7 % to 6.4 % Diabetes : > 6.4 % Use with caution in patients with abnormal hemoglobin variants as the half-life of red blood cells and in vivo glycation rates are affected.Performed By: ###Cass COLVIN [id number] CBCA #### [facility] ([id number]) [address] [place] [address], [address] [address]Slzqscovdq A1con 47-18-9486Cylgasz glucose Estimated from glycated hemoglobin (Bld) [Mass/Vol]146 mg/dLShelby Memorial HospitalHbA1c (Bld) [Mass fraction]6.7 %High4.4 - 5.6 %[facility] Memorial HospitalComment on above:NOTE ADA Guidelines Result HgbA1c Normal : less than 5.7 % Prediabetes : 5.7 % to 6.4 % Diabetes : > 6.4 % Use with caution in patients with abnormal hemoglobin variants as the half-life of red blood cells and in vivo glycation rates are affected. Interpretation and review of laboratory resultsAbnormalUPMC Western Psychiatric HospitalCBC AND AUTO DIFFon 23-99-7307SYNLPNDN BASOPHIL0.2 X10E9/LNormal0.0-0.2ProMedica [facility] Community HospitalComment on above:Performed By: ###Cass COLVIN, [address]-1, RAUL, CBCCelia #### [facility] ([id number]) [address] [place] [address], [address] [address]QTPYDPJX NEUTROPHIL6.2 X10E9/LNormal1.5-6.6ProMercy Health Clerm[facility] Hospitalca [facility] HospitalComment on above:Performed By: #### Priyank COLVIN-1, RUAL, CBCA #### [facility] ([id number]) [address], [address] [place], [place] [address]Dnyfuxwyw/100 WBC (Bld)1.4 %NormalKindred Hospital Lima Comment on above:Performed By: #### Daniela COLVIN, RAUL, CBCA #### [facility] ([id number]) [address], [address] [place], [place] [address]Gncvvikmbnl (Bld) [#/Vol]0.3 10*3/uLNormal0.0-0.4ProDayton Children'S Hospital HospitalComment on above:Performed By: #### Priyank COLVIN-1, RAUL, CBCA #### [facility] ([id number]) [address], [address] [place], [place] [address]Rqqqzoqmnqk/100 WBC (Bld)3.0 %NormalKindred Hospital Lima Comment on above:Performed By: #### Priyank COLVIN-1, RAUL, CBCA #### [facility] ([id number]) [address], [facility] [address] [place], [place] [address]Tiqyshhlder distribution width (RBC) [Ratio]12.9 %Normal 11.5-15.0ProDayton Children'S Hospital HospitalComment on above:Performed By: #### Priyank COLVIN-1, RAUL, CBCA #### [facility] ([id number]) [address], [address] [place], [place] [address]Dzfsuprgzy (Bld) [Volume fraction]45.6 %Dwfkal34-68FrzNtpybp [place] HospitalComment on above:Performed By: #### Priyank COLVIN-1, RAUL, CBCA #### [facility] ([id number]) [address], [address] [place], [place] [address]Ohtvgxemxi (Bld) [Mass/Vol]15.6 g/hPEzwjvp89.0-17.0ProMercy Health Clermont Hospitalca [facility]water HospitalComment on above:Performed By: #### Arabella COLVIN31-1, BMP, CBCA #### [facility] ([id number]) [address], [address] [place], [place] [address]Ytrupcrofzl (Bld) [#/Vol]3.4 10*3/uLNormal1.0-3.5ProMedica Edgewater HospitalComment on above:Performed By: #### Priyank COLVIN-1, BMP, CBCA #### [facility] ([id number]) [address], [address] [place], [place] [address]Jjqlkfhuinw/100 WBC (Bld)30.9 %NormalProDayton Children'S Hospital Hospital Comment on above:Performed By: #### Priyank COLVIN-1, BMP, CBCA #### [facility] ([id number]) [address], [address] [place], [place] [address]IDF (RBC) [Entitic mass]31.4 krKkyies52-81VmdPcuczk [place] HospitalComment on above:Performed By: #### Priyank COLVIN-1, BMP, CBCA #### [facility] ([id number]) [address], [address] [place], [place] [address]LVCG (RBC) [Mass/Vol]34.3 g/dNIzmdaj34-01XyfUdzogv [place] HospitalComment on above:Performed By: #### Priyank COLVIN-1, BMP, CBCA #### [facility] ([id number]) [address], [address] [place], [place] [address]SKJ (RBC) [Entitic vol]91 kAWukceb38-476JgnYhwgno [facility] HospitalComment on above:Performed By: #### Priyank COLVIN-1, BMP, CBCA #### [facility] ([id number]) [address], [address] [place], [place] [address]Pwsvcohro (Bld) [#/Vol]0.9 10*3/uLNormal0-0.9ProMercy Health Clerm[facility] Hospitalca [facility] Community HospitalComment on above:Performed By: #### Priyank COLVIN-1, BMP, CBCA #### [facility] ([id number]) [address], [address] [place], [place] [address]Omygreeen/100 WBC (Bld)8.2 %NormalKindred Hospital Lima Comment on above:Performed By: #### Priyank COLVIN-1, BMP, CBCA #### [facility] ([id number]) [address], [address] [place], [place] [address]Jgmzltdduvx/100 WBC (Bld)56.5 %NormalKindred Hospital Lima Comment on above:Performed By: #### Arabella COLVIN31-1, BMP, CBCA #### [facility] ([id number]) [address], [address] [place], [place] [address]Tvpxcpvn mean volume (Bld) [Entitic vol]10.4 fLNormal7-12 ProMrandolph medical centera [facility] Community HospitalComment on above:Performed By: #### Arabella COLVIN31-1, BMP, CBCA #### [facility] ([id number]) [address], [address] [place], [place] [address]Dspijeiyj (Bld) [#/Vol]247 10*3/aQGemgak689-390TtpYfkonl [place] HospitalComment on above:Performed By: #### Arabella COLVIN31-1, BMP, CBCA #### [facility] ([id number]) [address], [address] [place], [place] [address]ILR COUNT4.99 X10E12/LNormal4.10-5.70ProChildren'[facility] Hospital Of [facility] Comment on above:Performed By: #### Arabella COLVIN31-1, RAUL, CBCA #### [facility] ([id number]) [address], [address] [place], [place] [address]CYE (Bld) [#/Vol]11.0 10*3/uLNormal4.0-11.0ProMedica [facility] HospitalComment on above:Performed By: #### Priyank COLVIN-1, RAUL, CBCA #### [facility] ([id number]) [address], [address] [place], [place] [address]GSAHRYXNTJDRZ METABOLIC PANELon 19-09-8202Dhvjwkh [Mass/Vol]4.2 g/dLNormal3.2-5.3ProMed[facility] HospitalComment on above:Performed By: #### Priyank COLVIN-1, RAUL, CBCA #### [facility] ([id number]) [address], [address] [place], [place] [address]CJF [Catalytic activity/Vol]91 U/MJrplzu43-453XpjHlgtlb Love HospitalComment on above:Performed By: #### Priyank COLVIN-1, RAUL, CBCA #### [facility] ([id number]) [address], [address] [place], [place] [address]ZVH [Catalytic activity/Vol]48 U/LHigh0-40Pro[facility] HospitalComment on above:Performed By: #### Priyank COLVIN-1, RAUL, CBCA #### [facility] ([id number]) [address], [address] [place], [place] [address]Adfvm gap [Moles/Vol]6 mmol/LNormal5-15[facility] Comment on above:Performed By: #### Priyank COLVIN-1, RAUL, CBCA #### [facility] ([id number]) [address], [address] [place], [place] [address]EYB [Catalytic activity/Vol]32 U/LNormal0-41Pro[facility] HospitalComment on above:Performed By: #### Arabella COLVIN31-1, RAUL, CBCA #### [facility] ([id number]) [address], [address] [place], [place] [address]Fjsqvhura [Mass/Vol]0.3 mg/dLNormal0.3-1.2ProMedK[facility] HospitalComment on above:Performed By: #### Priyank COLVIN-1, RAUL, CBCA #### [facility] ([id number]) [address], [address] [place], [place] [address]Fxvjogl [Mass/Vol]9.6 mg/dLNormal8.5-10.5ProMedKettering Memorial Hospital HospitalComment on above:Performed By: #### Priyank COLVIN-1, RAUL, CBCA #### [facility] ([id number]) [address], [address] [place], [place] [address]Soatmaaf [Moles/Vol]104 mmol/CFfuwux97-625LvqBobxjb [place] HospitalComment on above:Performed By: #### Arabella COLVIN31-1, RAUL, CBCA #### [facility] ([id number]) [address], [address] [place], [place] [address]MI8 [Moles/Vol]28 mmol/DUpqagb68-55XszDrkkxc [facility] Comment on above:Performed By: #### Pryiank COLVIN-1, RAUL, CBCA #### [facility] ([id number]) [address], [address] [place], [place] [address]Pvbpkxhkqq [Mass/Vol]0.95 mg/dLNormal0.60-1.30ProMedica [facility] HospitalComment on above:Result Comment: METHOD TRACEABLE TO IDMS STANDARD Performed By: #### Arabella COLVIN31-1, RAUL, CBCA #### [facility] ([id number]) [address], [address] [place], [place] [address]qBTJ (CKD-EPI) NON-RACE DEPENDENT>90Normal>59ProDay[facility]S Hospital HospitalComment on above:Result Comment: Reported eGFR is based on the CKD-EPI 2020 equation that does not use a race coefficient.Performed By: #### Priyank COLVIN-RAUL Patterson CBCA #### [facility] ([id number]) [address], [address] [place], [place] [address]Seyahtt [Mass/Vol]108 mg/uHLnqw67-07MfyBegjzvKindred Hospital Lima Comment on above:Performed By: #### Daniela COLVIN, RAUL CBCCelia #### [facility] ([id number]) [address], [address] [place], [place] [address]Nszcqaiil [Moles/Vol]4.1 mmol/LNormal3.5-5.0ProChildren'S Hospital Of ColumbusComment on above:Performed By: ###Daniela VILLASEÑOR, RAUL CBCCelia #### [facility] ([id number]) [address], [address] [place], [place] [address]Onifter [Mass/Vol]8.1 g/dLHigh6.0-8.0[facility] Comment on above:Performed By: #### Arabella COLVIN31-1, RAUL CBCCelia #### [facility] ([id number]) [address], [address] [place], [place] [address]Rsomjk [Moles/Vol]138 mmol/TFknnmc602-463RwoFuzjop [place] HospitalComment on above:Performed By: #### Priyank COLVIN-1, RAUL, CBCA #### [facility] ([id number]) [address], [address] [place], [place] [address]Zfbu nitrogen [Mass/Vol]10 mg/dLNormal5-23ProChildren'S Hospital Of ColumbusComment on above:Performed By: #### Priyank COLVIN-1, RAUL, CBCA #### [facility] ([id number]) [address] [facility], [address] [place], [place] [address]KKLOSL LDLon 83-46-4552Tiohurpspui in LDL [Mass/Vol]163 mg/dL High<130ProChildren'S Hospital Of ColumbusComment on above:Result Comment: LDL <100 mg/dL - Desirable LDL 130-159 mg/dL - Borderline High Risk LDL >160 mg/dL - High Risk Performed By: #### MARII 80831-7, RAUL, CBCA #### [facility] ([id number]) [address] [place] [address], [address] [address]QSS A1C (GLYCO-HGB)on 65-19-3853Ujwfmnh [Mass/Vol]148 mg/dL NormalProChildren'S Hospital Of ColumbusComment on above:Performed By: #### MARII [address]- 1, RAUL, CBCA #### [facility] ([id number]) [address] [place] [address]KcC6k (Bld) [Mass fraction]6.8 %High4.4-5.6[facility] on above:Result Comment: NOTE ADA Guidelines Result HgbA1c Normal : less than 5.7 % Prediabetes : 5.7 % to 6.4 % Diabetes : > 6.4 % Use with caution in patients with abnormal hemoglobin variants as the half-life of red blood cells and in vivo glycation rates are affected.Performed By: #### MARII 64887-5, RAUL, CBCA #### [facility] ([id number]) [address] [facility], [address] [address]SJZOUROWCAQH - ALBUMIN:CREATININE URINE RATIOon 03-29-2024 ALB/CREAT RATIO2.6 mg/g creatNormal0.0-30.0ProMed[facility] HospitalComment on above:Performed By: #### Priyank COLVIN-1, BMP, CBCA #### [facility] ([id number]) [address], [address] [place], [place] [address]Hikbtiu DL <= 20 mg/L (U) [Mass/Vol]1.0 mg/dLNormal0.0-1.9 [facility] HospitalComment on above:Performed By: #### Priyank COLVIN-1, BMP, CBCA #### [facility] ([id number]) [address], [address] [place], [place] [address]PUZPR MBIPZ128.43 mg/dLNormalProMedica Love HospitalComment on above:Performed By: #### Priyank COLVIN-1, RAUL, CBCA #### [facility] ([id number]) [address], [address] [place], [place] [address]MUISO METABOLIC PANLon 01-60-3119Essvt gap [Moles/Vol]9 mmol/L Normal5-15[facility] HospitalComment on above:Performed By: ###Priyank VILLASEÑOR-1, RAUL, CBCA #### [facility] ([id number]) [address], [address] [place], [place] [address]Tuogcqt [Mass/Vol]9.4 mg/dLNormal8.5-10.5Pro[facility] HospitalComment on above:Performed By: #### Arabella COLVIN31-1, BMP, CBCA #### [facility] ([id number]) [address], [address] [place], [place] [address]Metgooxk [Moles/Vol]104 mmol/IRpdmgk76-392EzlVdppvy Love HospitalComment on above:Performed By: #### Arabella COLVIN31-1, BMP, CBCA #### [facility] ([id number]) [address], [address] [place], [place] [address]IA1 [Moles/Vol]28 mmol/MPpgxfn82-80TqfJocschSelect Medical Specialty Hospital - [place] Comment on above:Performed By: #### Arabella COLVIN31-1, RAUL CBCCelia #### [facility] ([id number]) [address], [address] [place], [place] [address]Vcdmvewfha [Mass/Vol]0.94 mg/dLNormal0.60-1.30ProChildren'S Hospital Of ColumbusComment on above:Result Comment: METHOD TRACEABLE TO IDMS STANDARD Performed By: #### Priyank COLVIN-1, RAUL CBCCelia #### [facility] ([id number]) [address], [facility] [address] [place], [place] [address]dGHR (CKD-EPI) NON-RACE DEPENDENT>90Normal>59ProChildren'S Hospital Of ColumbusComment on above:Result Comment: Reported eGFR is based on the CKD-EPI 2020 equation that does not use a race coefficient.Performed By: #### Priyank COLVIN-1, RAUL, CBCCelia #### [facility] ([id number]) [address], [address] [place], [place] [address]Rnobtjb [Mass/Vol]278 mg/pUWydf10-78ItcSpmvbfKindred Hospital Lima Comment on above:Performed By: #### Arabella COLVIN31-1, RAUL, CBCA #### [facility] ([id number]) [address], [address] [place], [place] [address]Txhozyyek [Moles/Vol]4.0 mmol/LNormal3.5-5.0ProChildren'S Hospital Of ColumbusComment on above:Performed By: #### Arabella COLVIN31-1, RAUL, CBCA #### [facility] ([id number]) [address], [address] [place], [place] [address]Wdtihm [Moles/Vol]141 mmol/YNwkmuh198-959GnxFicivt [place] HospitalComment on above:Performed By: #### Priyank COLVIN-1, BMP, CBCA #### [facility] ([id number]) [address], [address] [place], [place] [address]Fzfx nitrogen [Mass/Vol]16 mg/dLNormal5-23Pro[facility] HospitalComment on above:Performed By: #### MARII 41090-6, RAUL, CBCA #### [facility] ([id number]) [address], [address] [place], [place] [address]BOO AND AUTO DIFFon 83-30-2445HVKUJXXP BASOPHIL0.1 X10E9/LNormal 0.0-0.2ProMedica [facility]water HospitalComment on above:Performed By: #### Arabella COLVIN31- , RAUL, CBCA #### [facility] ([id number]) [address], [address] [place], [place] [address]BXGEYIIR DQGKDPHUSO15.3 X10E9/LHigh1.5-6.6ProMercy Health Clerm[facility] Hospitalca [facility] HospitalComment on above:Performed By: #### MARII 17207-6, RAUL, CBCA #### [facility] ([id number]) [address], [address] [place], [place] [address]Axmilzlle/100 WBC (Bld)0.6 %NormalKindred Hospital Lima Comment on above:Performed By: #### Arabella COLVIN31-1, RAUL, CBCA #### [facility] ([id number]) [address], [address] [place], [place] [address]Raokxzeblqe (Bld) [#/Vol]0.0 10*3/uLNormal0.0-0.4ProMercy Health Clermont Hospitalca [facility] HospitalComment on above:Performed By: #### MARII 82456-1, BMP, CBCA #### [facility] ([id number]) [address], [address] [place], [place] [address]Clrhdieufqe/100 WBC (Bld)0.1 %NormalKindred Hospital [place]ima Comment on above:Performed By: #### MARII 46032-5, BMP, CBCA #### [facility] ([id number]) [address], [address] [place], [place] [address]Qkjrvnwvigj distribution width (RBC) [Ratio]13.2 %Normal 11.5-15.0ProChildren'S Hospital Of ColumbusComment on above:Performed By: #### Priyank COLVIN-1, BMP, CBCA #### [facility] ([id number]) [address], [address] [place], [place] [address]Cijaoibxxw (Bld) [Volume fraction]46.5 %Zlbobh55-49DqeYboadxChildren'S Hospital Of ColumbusComment on above:Performed By: #### MARII 64622-7, RAUL, CBCA #### [facility] ([id number]) [address], [address] [place], [place] [address]Dyfyylsovk (Bld) [Mass/Vol]16.2 g/fDFcjwxn91.0-17.0ProChildren'S Hospital Of ColumbusComment on above:Performed By: #### Arabella COLVIN31-1, RAUL, CBCA #### [facility] ([id number]) [address], [address] [place], [place] [address]Qpjnfjrrdkn (Bld) [#/Vol]3.3 10*3/uLNormal1.0-3.5Pro[facility]ica [facility] Community HospitalComment on above:Performed By: #### MARII 42494-0, BMP, CBCA #### [facility] ([id number]) [address], [address] [place], [place] [address]Pvyijcrcoov/100 WBC (Bld)15.9 %NormalProChildren'S Hospital Of Columbus Comment on above:Performed By: #### MARII 30563-2, BMP, CBCA #### [facility] ([id number]) [address], [address] [place], [place] [address]EQV (RBC) [Entitic mass]31.8 fyNbeiup34-54VpmQmmajr [facility] HospitalComment on above:Performed By: #### Priyank COLVIN-1, BMP, CBCA #### [facility] ([id number]) [address], [address] [place], [place] [address]ETQV (RBC) [Mass/Vol]34.7 g/aWYapetf66-56HfgYflojm [facility] HospitalComment on above:Performed By: #### Priyank COLVIN-1, BMP, CBCA #### [facility] ([id number]) [address], [address] [place], [place] [address]BDX (RBC) [Entitic vol]92 eAPxkdqw28-952XibUfvrcr [facility] HospitalComment on above:Performed By: #### Priyank COLVIN-1, BMP, CBCA #### [facility] ([id number]) [address], [address] [place], [place] [address]Tcddaaepa (Bld) [#/Vol]2.0 10*3/uLHigh0-0.9ProDayton Children'S Hospital HospitalComment on above:Performed By: #### MARII 29303-0, BMP, CBCA #### [facility] ([id number]) [address], [address] [place], [place] [address]Futewbidl/100 WBC (Bld)9.5 %NormalKindred Hospital Lima Comment on above:Performed By: #### Arabella COLVIN31-1, BMP, CBCA #### [facility] ([id number]) [address], [address] [place], [place] [address]Kjbrakibszw/100 WBC (Bld)73.9 %NormalKindred Hospital Lima Comment on above:Performed By: #### MARII 29219-5, BMP, CBCA #### [facility] ([id number]) [address] [place], [place] [address]Gqxpjykq mean volume (Bld) [Entitic vol]9.9 fLNormal7-12 [facility] HospitalComment on above:Performed By: ###Arabella VILLASEÑOR31-1, RAUL, CBCA #### [facility] ([id number]) [address], [address] [place], [place] [address]Elfwcvgbp (Bld) [#/Vol]272 10*3/tFMqcnou568-418AbaBabyyq [facility] HospitalComment on above:Performed By: #### Priyank COLVIN-1, RAUL, CBCA #### [facility] ([id number]) [address], [address] [place], [place] [address]IBD COUNT5.08 X10E12/LNormal4.10-5.70[facility] Comment on above:Performed By: ###Priyank VILLASEÑOR-1, RAUL, CBCA #### [facility] ([id number]) [address], [address] [place], [place] [address]GIK (Bld) [#/Vol]20.6 10*3/uLHigh4.0-11.0Pro[facility] HospitalComment on above:Performed By: ###Arabella VILLASEÑOR31-1, RAUL, CBCA #### [facility] ([id number]) [address] [place], [place] [address]OYOTY METABOLIC PANLon 03-48-4266Fboyk gap [Moles/Vol]10 mmol/L Normal5-15[facility] HospitalComment on above:Performed By: ###Priyank VILLASEÑOR-1, RAUL, CBCA #### [facility] ([id number]) [address], [address] [place], [place] [address]Yahcjle [Mass/Vol]9.6 mg/dLNormal8.5-10.5Pro[facility] HospitalComment on above:Performed By: ###Priyank VILLASEÑOR-1, BMP, CBCA #### [facility] ([id number]) [address], [address] [place], [place] [address]Maxudarh [Moles/Vol]101 mmol/KHbufkl82-598TfxWnybhw [place] HospitalComment on above:Performed By: #### MARII 23412-4, MALCOM CARTER #### [facility] ([id number]) [address], [address] [place], [place] [address]LR3 [Moles/Vol]24 mmol/ZLeinur95-71DivEmkniqSelect Medical Specialty Hospital - [place] Comment on above:Performed By: #### Arabella COLVIN31-1, MALCOM CARTER #### [facility] ([id number]) [address] [place], [place] [address]Xsiirafvhk [Mass/Vol]0.95 mg/dLNormal0.60-1.30ProChildren'S Hospital Of ColumbusComment on above:Result Comment: METHOD TRACEABLE TO IDMS STANDARD Performed By: #### MARII 43303-7, RAUL CBCCelia #### [facility] ([id number]) [address] [place], [place] [address]zYTO (CKD-EPI) NON-RACE DEPENDENT>90Normal>59ProChildren'S Hospital Of ColumbusComment on above:Result Comment: Reported eGFR is based on the CKD-EPI 2020 equation that does not use a race coefficient.Performed By: #### MARII 60075-6, RAUL CBCCelia #### [facility] ([id number]) [address], [address] [place], [place] [address]Ubeizyo [Mass/Vol]341 mg/aHHnii43-16FpkQbumgzKindred Hospital Lima Comment on above:Performed By: #### MARII 85558-2, RAUL, CBCA #### [facility] ([id number]) [address], [address] [place], [place] [address]Vhjmnzrqo [Moles/Vol]4.5 mmol/LNormal3.5-5.0[facility] [place] HospitalComment on above:Performed By: #### Daniela COLVIN, RAUL, CBCA #### [facility] ([id number]) [address], [address] [place], [place] [address]Hnjqjj [Moles/Vol]135 mmol/QUdjnau653-386UdaTtsgcz [place] HospitalComment on above:Performed By: #### Daniela COLVIN, RAUL, CBCA #### [facility] ([id number]) [address], [address] [place], [place] [address]Snjt nitrogen [Mass/Vol]12 mg/dLNormal5-23[facility] [place] HospitalComment on above:Performed By: #### Daniela COLVIN, RAUL, CBCA #### [facility] ([id number]) [address], [address] [place], [place] [address]WQL AND AUTO DIFFon [id number] BASOPHIL0.0 X10E9/LNormal 0.0-0.2[facility] HospitalComment on above:Performed By: ###Shelby VILLASEÑOR, RAUL, CBCA #### [facility] ([id number]) [address], [address] [place], [place] [address]YXRVHXHO HAVOVSKDVW06.2 X10E9/LHigh1.5-6.6[facility] HospitalComment on above:Performed By: #### Daniela COLVIN, RAUL, CBCA #### [facility] ([id number]) [address], [address] [place], [place] [address]Zemmpibms/100 WBC (Bld)0.2 %NormalProMercy Health Clerm[facility] Hospitalca [facility] Comment on above:Performed By: #### Daniela COLVIN, RAUL, CBCA #### [facility] ([id number]) [address], [address] [place], [place] [address]Jbcwkoblwxp (Bld) [#/Vol]0.0 10*3/uLNormal0.0-0.4ProMercy Health Clermont Hospitalca Edgewater HospitalComment on above:Performed By: #### Daniela COLVIN, RAUL, CBCA #### [facility] ([id number]) [address], [address] [place], [place] [address]Ywyvqklkqyr/100 WBC (Bld)0.0 %NormalProDayton [facility] Hospital Comment on above:Performed By: #### Daniela COLVIN, RAUL, CBCA #### [facility] ([id number]) [address], [address] [place], [place] [address]Eybnzuxbvuf distribution width (RBC) [Ratio]12.9 %Normal 11.5-15.0ProDayton Children'S Hospital HospitalComment on above:Performed By: #### Daniela COLVIN, RAUL, CBCA #### [facility] ([id number]) [address], [address] [place], [place] [address]Dzjtbngbrm (Bld) [Volume fraction]47.1 %Qtpjah80-18WwfOkvxjm [place] HospitalComment on above:Performed By: ###Priyank VILLASEÑOR-1, RAUL, CBCA #### [facility] ([id number]) [address], [address] [place], [place] [address]Fmwlrprypy (Bld) [Mass/Vol]16.1 g/pYSyiisx96.0-17.0ProDayton Children'S Hospital HospitalComment on above:Performed By: #### Daniela COLVIN, RAUL, CBCA #### [facility] ([id number]) [address], [address] [place], [place] [address]Xnqbheztpvt (Bld) [#/Vol]1.1 10*3/uLNormal1.0-3.5[facility] HospitalComment on above:Performed By: ###Priyank VILLASEÑOR-1, RAUL, CBCA #### [facility] ([id number]) [address], [address] [place], [place] [address]Khqjfqtqqch/100 WBC (Bld)9.1 %NormalKindred Hospital Lima Comment on above:Performed By: #### Priyank COLVIN-1, BMP, CBCA #### [facility] ([id number]) [address], [address] [place], [place] [address]EIM (RBC) [Entitic mass]30.8 cwEkycwe69-61IokRnlbfc [place] HospitalComment on above:Performed By: #### Priyank COLVIN-1, BMP, CBCA #### [facility] ([id number]) [address], [address] [place], [place] [address]HGXF (RBC) [Mass/Vol]34.1 g/wNZipegz77-41ChnJmnyjm Love HospitalComment on above:Performed By: #### Priyank COLVIN-1, BMP, CBCA #### [facility] ([id number]) [address], [address] [place], [place] [address]ACJ (RBC) [Entitic vol]90 sGItayvb17-193VmsXbiwnq Edgewater HospitalComment on above:Performed By: #### Arabella COLVIN31-1, BMP, CBCA #### [facility] ([id number]) [address], [address] [place], [place] [address]Jlcgoefdu (Bld) [#/Vol]0.2 10*3/uLNormal0-0.9ProMedica Love HospitalComment on above:Performed By: #### Priyank COLVIN-1, BMP, CBCA #### [facility] ([id number]) [address], [address] [place], [place] [address]Pjuyvdusr/100 WBC (Bld)2.1 %NormalKindred Hospital Lima Comment on above:Performed By: #### Priyank COLVIN-1, BMP, CBCA #### [facility] ([id number]) [address], [address] [place], [place] [address]Nuxgieyqbpk/100 WBC (Bld)88.6 %NormalKindred Hospital Lima Comment on above:Performed By: #### MARII 96610-4, BMP, CBCA #### [facility] ([id number]) [address], [address] [place], [place] [address]Kyttiuao mean volume (Bld) [Entitic vol]10.5 fLNormal7-12 [facility] Community HospitalComment on above:Performed By: #### MARII 50965-4, BMP, CBCA #### [facility] ([id number]) [address], [address] [place], [place] [address]Ngapvuuti (Bld) [#/Vol]256 10*3/lDHekosg754-250DbvFgaxoh [place] HospitalComment on above:Performed By: #### MARII 00944-8, BMP, CBCA #### [facility] ([id number]) [address], [address] [place], [place] [address]BEM COUNT5.21 X10E12/LNormal4.10-5.70[facility] Comment on above:Performed By: #### MARII 34134-9, BMP, CBCA #### [facility] ([id number]) [address], [address] [place], [place] [address]GVG (Bld) [#/Vol]11.6 10*3/uLHigh4.0-11.0Kindred Hospital LimaComment on above:Performed By: #### MARII 96236-1, BMP, CBCA #### [facility] ([id number]) [address], [address] [place], [place] [address]WS CTA CAROTIDon 67-46-5384VZ CTA CAROTIDCT CTA CAROTID Examination: CTA carotids Clinical History: Stroke, follow up Comparison: None CT CTA CAROTID Procedure: Multidetector CT angiogram performed through the cervical portion of the carotid arteries without complication, including source images and maximum intensity projection 3-D images displayed and reviewed on an independent PACS workstation by the radiologist. Automated exposure control was utilized. The [place] Symptomatic Carotid Endarterectomy Trial (NASCET)calculation of ICA [...] by Marcelino Sheth MD on 02/01/2024 11:[address] Anne Hospitalca [facility] Community HospitalCT CTA HEADon [id number] CTA HEADCT CTA HEAD CT angiogram head with contrast [...] in the diagnosis of large vessel occlusion inpatients undergoing screening for acute ischemic stroke using Rapid Pufferfish software when clinically indicated. Findings: The visualized extracranial internal carotid arteries are patent. The petrosal, cavernous and supraclinoid internal carotid arteries are patent. Symmetric arborization middle cerebral anterior cerebral arteries. Mild multifocal plaque and stenosis of the dilated. The vertebral arteries converge andform a normal- appearing basilar artery. Persistent origin bilateral posterior cerebral [...] by Pelon Ortega MD on 02/01/2024 11:27 AMNormalProChildren'S Hospital Of ColumbusGlucose Glucometer (BldC) [Mass/Vol]on 60-28-8157Pygytqd [Mass/Vol]243 mg/xCEqpv46-67KxbVhcfabChildren'S Hospital Of ColumbusGlucose [Mass/Vol]201 mg/mISacg14-82 [facility] Community HospitalHGB A1C (GLYCO-HGB)on 47-06-6807Adjgdda [Mass/Vol]146 mg/dLNormalProChildren'S Hospital Of ColumbusComment on above:Performed By: #### HA1C, 71904-6, BMP, CBCA #### [facility] ([id number]) [address] [place], [place] [address]DyH8e (Bld) [Mass fraction]6.7 %High4.4-5.6ProOur Lady of Mercy Hospital - Andersonment on above:Result Comment: NOTE ADA Guidelines Result HgbA1c Normal : less than 5.7 % Prediabetes : 5.7 % to 6.4 % Diabetes : > 6.4 % Use with caution in patients with abnormal hemoglobin variants as the half-life of red blood cells and in vivo glycation rates are affected.Performed By: #### Arabella COLVIN31-1, MALCOM CARTER #### [facility] ([id number]) [address], [address] [place], [place] [address]Wcmln 1995 panelon 78-95-1384Wvciwplvpeo [Mass/Vol]203 mg/dLHigh 150-200ProMedica Edgewater HospitalComment on above:Performed By: ###Priyank VILLASEÑOR- Leonardo, MALCOM CARTER #### [facility] ([id number]) [address], [address] [place], [place] [address]Wupnawyetaq in HDL [Mass/Vol]45 mg/dLNormal>39ProDayton Children'S Hospital HospitalComment on above:Result Comment: HDL <40 mg/dL - High Risk HDL > or = 40mg/dL- Desirable HDL >60 mg/dL - Negative Risk Performed By: ###Cass COLVIN 77154-3, RAUL, CBCCelia #### [facility] ([id number]) [address] [place], [place] [address]Dbwcjnqfocp in LDL [Mass/Vol]138 mg/dLHigh<130ProDayton Children'S Hospital HospitalComment on above:Result Comment: LDL <100 mg/dL - Desirable LDL >160 mg/dL - High Risk Performed By: ###Cass COLVIN 21961-1, RAUL, CBCA #### [facility] ([id number]) [address] [place], [place] [address]Seshxrdkoxp in VLDL [Mass/Vol]20 mg/dLNormal0-30ProChildren'S Hospital Of ColumbusComment on above:Performed By: #### MARII, 40279-4, BMP, CBCA #### [facility] ([id number]) [address], [address] [place], [place] [address]ZOLXDKLNJFM:HDL4.7Hjxdzg6.0-5.0ProChildren'S Hospital Of ColumbusComment on above:Performed By: #### MARII, 00775-1, BMP, CBCA #### [facility] ([id number]) [address] [place], [place] [address]Maujbzthukbg [Mass/Vol]98 mg/dRSqwgzb99-352AtjQzilmn [place] HospitalComment on above:Performed By: #### MARII, 02525-8, BMP, CBCA #### [facility] ([id number]) [address] [place], [place] [address]YP BRAIN W WO CONTon 32-50-2172UW BRAIN W WO CONTMR BRAIN W WO CONT MR BRAIN W [...] by Rod Alexandre MD on 02/01/2024 9:19 PMNormalKindred Hospital LimaXR SHOULDER LT MIN 2 VWSon 35-19-9452FG SHOULDER LT MIN 2 VWSXR SHOULDER LT MIN 2 VWS XR SHOULDER [...] by Liz Wilder MD on 02/01/2024 2:38 PMNDayton Osteopathic HospitalCBC AUTO DIFFon 23-86-0811UKNE #0.1 103/ulNormal0.0-0.1The [facility]leness HospitalComment on above:Performed By: #### CBC #### [facility] [address] [place] [address] Dr. Joceline RosalesBasophils/100 WBC (Bld)0.7 %Normal0.2-2.0[facility] Comment on above:Performed By: #### CBC #### [facility] [address] [place] [address] Dr. Joceline Ely #0.2 103/ulNormal0.0-0.7The [facility]leness HospitalComment on above: Performed By: #### CBC #### [facility] [address] [place] [address] Dr. Joceline Myrickosinophils/100 WBC (Bld)1.7 %Normal0.9-7.0[facility] Comment on above:Performed By: #### CBC #### [facility] [address] [place] [address] Dr. Joceline Myrickrythrocyte distribution width (RBC) [Ratio]12.5 %Uszpnh87.0-15.0 [facility] North HospitalComment on above:Performed By: #### CBC #### [facility] [address] [place] [address] Dr. Joceline RosalesHematocrit (Bld) [Volume fraction]45.0 %Bpybqx48.0-54.0The [facility] HospitalComment on above:Performed By: #### CBC #### [facility] [address] [place] [address] Dr. Joceline RosalesHemoglobin (Bld) [Mass/Vol]15.2 g/mDVgvosh79.0-18.0The [facility] HospitalComment on above:Performed By: #### CBC #### [facility] [address] [place] [address] Dr. Joceline Perez #0.01 10e3/ulNormal0.00-0.03The [facility] HospitalComment on above:Performed By: #### CBC #### [facility] [address] [place] [address] Dr. Joceline Perez %0.1 %Normal0.0-0.5The [facility] HospitalComment on above: Performed By: #### CBC #### [facility] [address] [place] [address] Dr. Joceline Miranda #1.6 103/ulNormal1.2-3.8The [facility] HospitalComment on above:Performed By: #### CBC #### [facility] [address] [place] [address] Dr. Joceline Valdezmphocytes/100 WBC (Bld)18.7 %Critically low20.5-60.0The [facility] HospitalComment on above:Performed By: #### CBC #### [facility] [address] [place] [address] Dr. Joceline BoyerUAL DIFF REQNONormalThe [facility]len[facility] HospitalComment on above: Performed By: #### CBC #### [facility] [address] [place] [address] Dr. Joceline Anne (RBC) [Entitic mass]30.3 ivLkiqff84.9-34.0The [facility] HospitalComment on above:Performed By: #### CBC #### [facility] [address] [place] [address] Dr. Joceline Acosta (RBC) [Mass/Vol]33.8 g/xMLkptjg51.9-35.2The [facility] HospitalComment on above:Performed By: #### CBC #### [facility] [address] [address] [address] Joceline AcostaV (RBC) [Entitic vol]89.6 hXFvgmku72.0-94.0The [facility] HospitalComment on above:Performed By: #### CBC #### [facility] [address] [address] [address] Joceline Winkler #1.1 103/ulCritically high0.3-0.8The [facility] Comment on above:Performed By: #### CBC #### [facility] [address] [place] [address] Dr. Joceline Lokceocytes/100 WBC (Bld)12.2 %Critically high1.7-12.0The [facility] HospitalComment on above:Performed By: #### CBC #### [facility] [address] [address] [address] Joceline Ervin #5.7 103/ulNormal1.4-6.5The [facility] HospitalComment on above:Performed By: #### CBC #### [facility] [address] [place] [address] Dr. Joceline Mccollumutrophils/100 WBC (Bld)66.6 %Tsfjme04.0-75.0The [facility] HospitalComment on above:Performed By: #### CBC #### [facility] [address] [place] [address] Dr. Joceline Gonzalezlet mean volume (Bld) [Entitic vol]11.0 fLNormal9.5-13.5The [facility] HospitalComment on above:Performed By: #### CBC #### [facility] [address] [place] [address] Dr. Joceline RosalesPLT214 103/hnKawvja277-213Mgr [facility] HospitalComment on above: Performed By: #### CBC #### [facility] [address] [place] [address] Dr. Joceline RosalesRBC5.02 106/ulNormal4.70-6.10The [facility] HospitalComment on above:Performed By: #### CBC #### [facility] [address] [place] [address] Dr. Joceline RosalesWBC8.6 103/ulNormal4.0-11.0The [facility] HospitalComment on above: Performed By: #### CBC #### [facility] [address] [place] [address] Dr. Joceline RosalesCovid-19 PCR (CVDTBH)on 56-44-0597KEYA-CoV-2 (COVID-19) RNA FAHAD+probe Ql (Unsp spec)Not detectedNormalNOT DETECTEDThe [facility] Comment on above:Result Comment: This test is not yet approved or cleared by the [place] FDA. When there are no FDA-approved or cleared tests available, and other criteria are met, FDA can make tests available under an emergency access mechanism called an Emergency Use Authorization (EUA). The EUA for this test is supported by the [place] of Health and Human Service's (HHS's) declaration that circumstances exist to justify the emergency use of in vitro diagnostics for the detection and/or diagnosis of the virus that causes COVID- 19. This EUA will remain in effect (meaning [...] of clinical signs and symptoms consistent with SARS-CoV-2.Performed By: #### CVDTBH #### [facility] [address] [place] [address] Dr. Joceline RosalesPROF CHEM 8 (BAS METB)on 71-72-1659Psnsq gap [Moles/Vol]11.2 mmol/LNormalThe [facility] HospitalComment on above:Performed By: #### BMP #### [facility] [address] [place] [address] Dr. Joceline RosalesCalcium [Mass/Vol]8.5 mg/dLNormal8.5-10.1The [facility] Comment on above:Performed By: #### BMP #### [facility] [address] [address] [address] Joceline RosalesChloride [Moles/Vol]107 mmol/ABufnwr77-524Eth [facility] Comment on above:Performed By: #### BMP #### [facility] [address] [address] [address] Joceline RosalesCO2 [Moles/Vol]24.9 mmol/STpizka97.0-32.0The [facility] Comment on above:Performed By: #### BMP #### [facility] [address] [place] [address] Dr. Joceline RosalesCreatinine [Mass/Vol]1.13 mg/dLNormal0.70-1.30The [facility] HospitalComment on above:Performed By: #### BMP #### [facility] [address] [place] [address] Dr. Car ChangEGFR-AF PUERTO RICAN>60Normal>=60The [facility] HospitalComment on above:Performed By: #### BMP #### [facility] [address] [place] [address] Dr. Joceline MyrickGFR-NON AF PUERTO RICAN>60Normal>=60The [facility] HospitalComment on above:Performed By: #### BMP #### [facility] [address] [place] [address] Dr. Joceline RosalesGlucose [Mass/Vol]119 mg/dLCritically djam43-411Uze [facility] HospitalComment on above:Performed By: #### BMP #### [facility] [address] [place] [address] Dr. Joceline RosalesPotassium [Moles/Vol]4.1 mmol/LNormal3.5-5.1The [facility] Comment on above:Performed By: #### BMP #### [facility] [address] [place] [address] Dr. Joceline RosalesSodium [Moles/Vol]139 mmol/OUulqki801-237VtbTrihealth Bethesda North Hospital Comment on above:Performed By: #### BMP #### [facility] [address] [address] [address] Joceline Castro nitrogen [Mass/Vol]10.0 mg/dLNormal7.0-18.0[facility] HospitalComment on above:Performed By: #### BMP #### [facility] [address] [id number] [address] Joceline RosalesUrea nitrogen/Creatinine [Mass ratio]8.8 mg/mgNoCleveland Clinic Avon HospitalComment on above:Performed By: #### BMP #### [facility] [address] [address] [address] Joceline RosalesXR CHEST 1 [facility] 76-75-8205AK CHEST 1 VEXAMINATION: XR CHEST 1 V HISTORY: Cough COMPARISON: None. TECHNIQUE: Portable chest FINDINGS: The lung parenchyma is free of consolidation or infiltrate. No pneumothorax or pleural effusion. The cardiac, mediastinal and hilar contours are normal. The visualized osseous structures exhibit no gross abnormality. IMPRESSION: No acute cardiopulmonary abnormality. Electronically authenticated by: MEÑO HUERTA Date: 2021-08-02 18:27[facility] Cancer CenterED Clinical Summaryon [id number] [address] ED Clinical Summary Person Information Name: Armani [facility] Age: 38 Years : 1980 Sex: Male PCP: Marital Status: Race: White Ethnicity: Not or Language: Chinese Visit Reason: Ankle pain-swelling; Extremities pain - swelling Acuity: 4 Enc Type: Emergency Med Service: Emergency Medicine Arrival: 11/22/2018 23:21:46 Discharge: 11/23/2018 00:39:00 LOS: 000 01:18 Checkin: 11/22/2018 23:21:46 Checkout: 11/23/2018 00:39:00 Dispo Type: Home or Self Care Address: [address] [place], [place] [id number] Provider Notes: Diagnosis: 1:Right ankle injury; 2:Right [...] 11/22/2018 23:24:22 Follow up: With: Address: When: [facility] Physical therapist in [place], [place] Comments: Follow up with Orthopedics of symptoms persist With: Address: When: Need a Doctor? Call the physician's referral line @ [phone] With: Address: When: Follow-up with your primary care provider in 2 to 3 days Discharge Orders: [facility] ([facility]) 11/23/18 0:18:00 EDT, as needed, Right ankle injury Discharge Patient 11/23/18 0:31:00 EDT, Discharge to Home, Self Patient Education Information: ANKLE SPRAIN (Adult); Treating?Strains and Sprains [facility] Poison Help line: . [facility] Health Hotline: [place] Tobacco Quit Line: [facility] ([place], [place]) [address]: [phone] [facility] ([place], [place]) [address]: [phone] [facility] [address], [place]: [phone] [facility] HospitalED Note-Physicianon 73-61-1528ZQ Note-Physician Chief Complaint I tripped over my forks at work and twisted my right ankle History of Present Illness Patient is a 38-year-old male presents to ED for evaluation of right ankle pain. Patient presently was at work earlier today, when he tripped over a forklift, causing him to twist his right ankle andfall onto his right side. Patient denies head or neck injury, dizziness or LOC at the time of injury. Patient voiced concern as he fractured right ankle when he was 18 years old. Patient denies otherinjuries or concerns. Patient denies chronic medical condition. Review of Systems As reviewed in the HPI. All other systems reviewed are negative or normal. Physical Exam HEAD: [normocephalic, midface stable, no visible bleeding] NECK: [no midline vertebral tenderness to palpation, no hematoma or signs of soft tissue injury] PULMONARY: [lungs clear to auscultation, no asymmetry, even and unlabored, no accessory muscle use,no chest wall tenderness] CARDIOVASCULAR: [good peripheral perfusion, [...] motion due to pain, sternal resistance and strengthdistally, normal capillary refill, normal pedal pulse, sensation [...] symptoms worsen despite outpatient treatment. The results ofpertinent diagnostic studies and exam findings were discussed. The patient?s provisional diagnosis a nd plan of care were discussed with the patient. The patient expressed understanding of the diagnosis and plan. The nurse was instructed to provide written instructions and appropriate follow-up information. The patient understands their need and responsibility to obtain additional follow-up as inst ructed. The risks of medications administered and prescribed were discussed with the patient. Reexamination/Reevaluation Patient is alert, not in acute distress and hemodynamically stable at discharge. Assessment/Plan 1. Right ankle injury Ordered: [facility] ([facility]) 2. Right ankle sprain Ordered: [facility] ([facility]) Orders: Discharge Patient Problem List/Past Medical [...] No acute fractures or dislocations. Signed By: Jovon HENAO, Claudy Rodriguez Computerized Tomagraphy No qualifying data available (CT) Ultrasound No qualifying data available (Ultrasound) Magnetic Resonance Imaging No qualifying data available (MRI) Electronically signed by Arabella Edwards CNP 11/23/18 02:14 EDTNormalBrown Memorial HospitalXR Ankle 3 Views Righton [id number] Ankle 3 Views RightCLINICAL HISTORY: Work injury, pain, limited range of [...] Is Signed, Electronically Signed in Other Vendor System)Normal [facility].eGFRon 37-97-1960pHCI AA>60Normal>=60Brown Memorial HospitalComment on above:Result Comment: Result = 0-14.9 mL/min/1.73 m2 Kidney failure or Dialysis Result = 15-29 mL/min/1.73 m2 Severe decrease in GFR Result = 30-59 mL/min/1.73 m2 Moderate decrease in GFR Result >= 60 mL/min/1.73 m2 Normal or increased GFRPerformed By: #### EGFR ####[address] [address]zMQB Non-AA >60Normal>=60Brown Memorial HospitalComment on above:Result Comment: Result = 0-14.9 mL/min/1.73 m2 Kidney failure or Dialysis Result = 15-29 mL/min/1.73 m2 Severe decrease in GFR Result = 30-59 mL/min/1.73 m2 Moderate decrease in GFR Result >= 60 mL/min/1.73 m2 Normal or increased GFR Chronic kidney disease is defined as either kidney damage or GFR < 60 mL/min/1.73 m2 for >= 3months. Kidney damage is defined as pathologic abnormalities or markers of damage including abnormalities in blood or urine tests or imaging studies. This GFR is NOT used for medication dosing. Performed By: #### EGFR ####[address] [address]TXK 2Hron 10-23-20182 Hour Gsfddnzsd66.0 ng/mLNormal 17.4-105.7BSelect Medical Specialty Hospital - Cleveland-FairhillComment on above:Performed By: #### AMI2 ####[address] [address]Hxzvtiho I.cardiac [Mass/Vol]ng/mLNormal0.00-0.03[facility] Memorial HospitalComment on above:Result Comment: An increased Troponin-I value, in the absence of myocardial ischemia, may indicate other etiologies of cardiac damage.Performed By: #### AMI2 ####[address] [address]SBG Initon 02-41-3007Edpvtul Ldldewfih68.0 ng/eECurvzr32.4-105.7BRegency Hospital Cleveland East SystemComment on above:Performed By: #### AMI1 ####[address] [address]Hpmesxdd I.cardiac [Mass/Vol]ng/mLNormal0.00-0.03[facility] Memorial HospitalComment on above: Result Comment: An increased Troponin-I value, in the absence of myocardial ischemia, may indicate other etiologies of cardiac damage.Performed By: #### AMI1 ####[address] [address]Xpaiw Metabolic Profileon 07-30-9294Dtjhn gap [Moles/Vol]13 mmol/LNormal7-17[facility] Memorial HospitalComment on above:Performed By: #### CD:[id number] ####[address] [address]Lekvrlk [Mass/Vol]8.9 mg/dLNormal8.5-10.3BSelect Medical Specialty Hospital - Cleveland-FairhillComment on above: Performed By: #### CD:[id number] ####[address] [address]Ycciteuq [Moles/Vol]104 mmol/WTdxrrq77-888QwyhmcapjBrown Memorial HospitalComment on above:Performed By: #### CD:[id number] ####[address] [address]UU3 [Moles/Vol]22 mmol/SIcrrke01-41SksruojicBrown Memorial HospitalComment on above: Performed By: #### CD:[id number] ####[address] [address]Zyhoqlqweh [Mass/Vol]1.13 mg/dLNormal0.61-1.24Brown Memorial HospitalComment on above:Performed By: #### CD:[id number] ####[address] [address]Iylgsxt [Mass/Vol]95 mg/lTUmbyyp35-983QzzytwigyBrown Memorial HospitalComment on above: Performed By: #### CD:[id number] ####[address] [address]Trznoyskn [Moles/Vol]3.9 mmol/LNormal3.4-4.8BSelect Medical Specialty Hospital - Cleveland-FairhillComment on above:Performed By: #### CD:[id number] ####[address] [address]Bjdyss [Moles/Vol]135 mmol/KGyocoi424-652LanfeflkuBrown Memorial HospitalComment on above:Performed By: #### CD:[id number] ####[address] [address]Wqtf nitrogen [Mass/Vol]15 mg/dLNormal8-26Brown Memorial HospitalComment on above:Performed By: #### CD:[id number] ####[address] [address]Mkve nitrogen/Creatinine [Mass ratio]13.3 mg/wkZuluwo68.0-20.0Brown Memorial HospitalComment on above:Performed By: #### CD:[id number] ####[address] [address]RXK w/ Diffon 10-23-2018 Erythrocyte distribution width (RBC) [Ratio]12.9 %Rpenzu63.6-14.8BSelect Medical Specialty Hospital - Cleveland-FairhillComment on above:Performed By: #### CBC ####[address] [address]Sguhptqqfd (Bld) [Volume fraction]43.0 %Sgjfts35.0-53.0[facility] Memorial HospitalComment on above: Performed By: #### CBC ####[address] [address]Criayfovkp (Bld) [Mass/Vol]15.2 g/qBUkayvd29.5-17.5 Brown Memorial HospitalComment on above:Performed By: #### CBC ####[address] [address]IRR (RBC) [Entitic mass]31.1 sgCsewxm29.0-35.0Brown Memorial HospitalComment on above:Performed By: #### CBC ####[address] [address]ILKR (RBC) [Mass/Vol]35.3 %Uskbhi41.0-37.0[facility] Memorial HospitalComment on above:Performed By: #### CBC ####[address] [address]GFP (RBC) [Entitic vol]88.1 fL Ulzuuo32.0-100.0Brown Memorial HospitalComment on above:Performed By: #### CBC ####[address] [address] Platelet mean volume (Bld) [Entitic vol]8.9 fLNormal6.7-10.6BSelect Medical Specialty Hospital - Cleveland-FairhillComment on above:Performed By: #### CBC ####[address] [address]Kuvuizewy (Bld) [#/Vol]220 x10*3/tvYDotjvh315-310LtzmxffnuBrown Memorial HospitalComment on above:Performed By: #### CBC ####[address] [address]CCL (Bld) [#/Vol]4.88 x10*6/mcLNormal4.30-5.80Brown Memorial HospitalComment on above:Performed By: #### CBC ####[address] [address]RNY (Bld) [#/Vol]8.8 x10*3/mcLNormal4.5-11.0 [facility] Memorial HospitalComment on above:Performed By: #### CBC ####[address] [address]Z-Mozsqyb 81-57-1850Caslrm D-dimer FEU IA (Bld) [Mass/Vol]0.27 mg/L feuNormal0.00-0.49 Brown Memorial HospitalComment on above:Result Comment: Results of the D- Dimer test should always be interpreted in conjunction with the patient's medical history, clinical presentation, and other findings. Results <0.5 mg/L are considered NEGATIVE for VTE. Results >= 0.5 mg/L require further clinical evaluation. Levels of triglyceride up to 600 mg/dl do not interfere with this D-Dimer assay.Performed By: #### DIMER ####[address] [address]Uhop Autoon 52-41-5418Ciel Absolute0.1 x10*3/mcLNormal0.0-0.2BSelect Medical Specialty Hospital - Cleveland-FairhillComment on above:Performed By: #### .Automated Diff #### [address] [address]Ofahvlwga/100 WBC (Bld)0.8 %Normal0.0-1.2BSelect Medical Specialty Hospital - Cleveland-FairhillComment on above:Performed By: #### .Automated Diff #### [address] [address]Rgg Absolute0.3 x10*3/mcLNormal0.0-0.4BSelect Medical Specialty Hospital - Cleveland-FairhillComment on above:Performed By: #### .Automated Diff #### [address] [address]Tjmwqsfqgww/100 WBC (Bld)3.7 %Normal0.0-6.1BSelect Medical Specialty Hospital - Cleveland-FairhillComment on above:Performed By: #### .Automated Diff #### [address] [address]Rxkbnwvhatp (Bld) [#/Vol]2.6 x10*3/mcLNormal1.0-4.8BSelect Medical Specialty Hospital - Cleveland-FairhillComment on above:Performed By: #### .Automated Diff #### [address] [address]Kxwylcqsmtf/100 WBC (Bld)29.3 %Otdudd53.2-40.8BSelect Medical Specialty Hospital - Cleveland-FairhillComment on above:Performed By: #### .Automated Diff #### [address] [address]Bcyc Absolute0.7 x10*3/mcLNormal0.3-1.1BSelect Medical Specialty Hospital - Cleveland-FairhillComment on above:Performed By: #### .Automated Diff #### [address] [address]Geybprhrz/100 WBC (Bld)7.7 %Normal4.7-13.9BSelect Medical Specialty Hospital - Cleveland-FairhillComment on above:Performed By: #### .Automated Diff #### [address] [address]Ihzelo Absolute5.2 x10*3/mcLNormal1.8-7.7BSelect Medical Specialty Hospital - Cleveland-FairhillComment on above:Performed By: #### .Automated Diff #### [address] [address]Emqrku Auto58.5 %Nkdvie67.2-70.8BSelect Medical Specialty Hospital - [facility] Comment on above:Performed By: #### .Automated Diff #### [address] [address]LP Clinical Summaryon [id number] Clinical Summary [facility] [address] [place], [place] [id number] ED Clinical Summary Person Information Name: Armani Stevens/Henry Age: 38 Years : 1980 Sex: Male PCP: Marital Status: Race: White Ethnicity: Not or Language: Chinese Visit Reason: Chest pain; Chest pain - Cardiac Acuity: 2 Enc Type: Emergency Med Service: Emergency Medicine Arrival: 10/22/2018 23:22:20 Discharge: 10/23/2018 02:21:00 LOS: 000 02:59 Checkin: 10/22/2018 23:22:20 Checkout: 10/23/2018 02:21:00 Dispo Type: Home or Self Care Address: [address] [place] [address] Provider Notes: Diagnosis: 1:Acute chest pain; 2:Pleurisy [...] range between ( 27.2 and 40.8 ) Amite Auto: 7.7 % -- Normal range between [...] range between ( 41.0 and 53.0 ) Amite Absolute: 0.7 x10 MCH: 31.1 pg -- [...] Education Information: CHEST PAIN, Uncertain Cause; PLEURISY [facility] Poison Help line: . [facility] Hotline: [place] Tobacco Quit Line: [facility] ([place], [place]) [address]: [phone] [facility] ([place], [place]) [address]: [phone] [facility] [address] [facility]. [place], [place]: [phone] Brown Memorial HospitalED Note-Physicianon [id number] Note-Physician Chief Complaint Chest pain that onset [...] any history of DVT or pulmonary embolism. Deniesany LE pain or swelling. He denies any recent infectious symptoms including fevers or chills. Over the preceding to 3 months, patient has not had any sort of chest discomfort including exertional chest pain, dyspnea, diaphoresis. Patient denies any palpitations. Respiratory, patient is a smoker. Hedenies any history of insulin-dependent diabetes, hyperlipidemia, hypertension. Patient does have afamily history of coronary artery disease in his [...] edema. Negative Homans test bilaterally. no gross deformities,atraumatic] PSYCHIATRIC: [normal mood and affect] Vitals & [...] Lymph Auto 10/22/18 23:50 29.3 09/20/18 29.8 Amite Auto 10/22/18 23:50 7.7 09/20/18 7.7 Eos Auto 10/22/18 23:50 3.7 09/20/18 4.4 Basophil Auto 10/22/18 23:50 0.8 09/20/18 0.7 Neutro Absolute 10/22/18 23:50 5.2 09/20/18 5.0 Lymph Absolute 10/22/18 23:50 2.6 09/20/18 2.6 Amite Absolute 10/22/18 23:50 0.7 09/20/18 0.7 Eos [...] qualifying data available (MRI) Electronically signed by Milan Tavarez MD 10/23/18 07:01 EDTNormalBrown Memorial Hospital Hep Func Panelon [id number] [Mass/Vol]3.8 g/dLNormal3.2-4.9BSelect Medical Specialty Hospital - Cleveland-FairhillComment on above:Result Comment: [facility] Laboratory updated the methodology used for albumin testing on 10/22/17. Albumin measurement was performed using a bromcresol purple dye-binding assay.Performed By: #### LIVER ####[address] [address]Qaw Phos86 IU/NHciesq54-36EghebwmrqBrown Memorial HospitalComment on above:Performed By: #### LIVER ####[address] [address]XMK [Catalytic activity/Vol]44 U/XGhncgt01-96XpabnyqqtBrown Memorial HospitalComment on above:Performed By: #### LIVER ####[address] [address]SHE [Catalytic activity/Vol]30 U/RLdfvhz98-39LzjtwqvaoBrown Memorial HospitalComment on above:Performed By: #### LIVER ####[address] [address]Yqri Direct0.1 mg/dLNormal 0.1-0.5BSelect Medical Specialty Hospital - Cleveland-FairhillComment on above:Performed By: #### LIVER ####[address] [address]Qxgm Indirect0.2 mg/dLNormal0.0-1.0Brown Memorial HospitalComment on above: Performed By: #### LIVER ####[address] [address]Fzdp Total0.3 mg/dLNormal0.3-1.2BSelect Medical Specialty Hospital - Cleveland-FairhillComment on above:Performed By: #### LIVER ####[address] [address]Ofcgexe [Mass/Vol]6.6 g/dLNormal 6.5-8.1BSelect Medical Specialty Hospital - Cleveland-FairhillComment on above:Performed By: #### LIVER ####[address] [address]Zhmgkkvw 86-33-6333Bdpcod Lvl46 IU/JRcmsde24-39NblglyhklBrown Memorial HospitalComment on above:Performed By: #### LIP ####[address] [address]TDit 71-07-6689WXC Coag (PPP) [Relative time]0.9 {INR} Normal<=3.5BSelect Medical Specialty Hospital - Cleveland-FairhillComment on above:Result Comment: INR has no normal range. INR Therapeutic range is: 2.0-3.0 (AF, CVA, TIAs, DVT prophylaxis, acute DVT) 2.5-3.5 ([facility] heart valves, recurrent thrombosis/emboli)Performed By: #### PTINR ####[address] [address]VE Coag (PPP) [Time]9.8 sNormal9.2-11.7BSelect Medical Specialty Hospital - Cleveland-FairhillComment on above: Performed By: #### PTINR ####[address] [address]PBYag 20-59-3424iLFL Coag (Bld) [Time]24.3 sNormal 20.6-28.0Brown Memorial HospitalComment on above:Performed By: #### PTT ####[address] [address]RK Chest 1 Viewon [id number] Chest 1 ViewEXAM: XR Chest 1 View HISTORY: Chest pain COMPARISON: None. FINDINGS: Single [...] Is Signed, Electronically Signed in Other Vendor System)Normal [facility].eGFRon 48-04-3660eQGE Non-AA>60Normal>=60 Brown Memorial HospitalComment on above:Result Comment: Result = 0-14.9 mL/min/1.73 m2 Kidney failure or Dialysis Result = 15-29 mL/min/1.73 m2 Severe decrease in GFR Result = 30-59 mL/min/1.73 m2 Moderate decrease in GFR Result >= 60 mL/min/1.73 m2 Normal or increased GFR Chronic kidney disease is defined as either kidney damage or GFR < 60 mL/min/1.73 m2 for >= 3months. Kidney damage is defined as pathologic abnormalities or markers of damage including abnormalities in blood or urine tests or imaging studies. This GFR is NOT used for medication dosing. Performed By: #### EGFR #### [address] [address]rRCT AA>60Normal>=60Brown Memorial HospitalComment on above:Result Comment: Result = 0-14.9 mL/min/1.73 m2 Kidney failure or Dialysis Result = 15-29 mL/min/1.73 m2 Severe decrease in GFR Result = 30-59 mL/min/1.73 m2 Moderate decrease in GFR Result >= 60 mL/min/1.73 m2 Normal or increased GFRPerformed By: #### EGFR #### [address] [address]Igucq Metabolic Profileon 55-72-1021Adoxc gap [Moles/Vol]14 mmol/LNormal7-17Brown Memorial HospitalComment on above:Performed By: #### CD:[id number] #### [address] [address]Ysattwt [Mass/Vol]9.0 mg/dLNormal8.5-10.3BSelect Medical Specialty Hospital - Cleveland-FairhillComment on above:Performed By: #### CD:[id number] #### [address] [address]Mkzqeefw [Moles/Vol]104 mmol/VOuisgg15-812OpckpiitlBrown Memorial HospitalComment on above:Performed By: #### CD:[id number] #### [address] [address]QH7 [Moles/Vol]22 mmol/JRzkepb40-47XwvelfstgBrown Memorial HospitalComment on above:Performed By: #### CD:[id number] #### [address] [address]Yzooplodoz [Mass/Vol]1.11 mg/dLNormal0.61-1.24Brown Memorial HospitalComment on above:Performed By: #### CD:[id number] #### [address] [address]Auhfyak [Mass/Vol]104 mg/aLWarxtl58-173FeeoytwylBrown Memorial HospitalComment on above:Performed By: #### CD:[id number] #### [address] [address]Jykkudzpi [Moles/Vol]3.7 mmol/LNormal3.4-4.8BSelect Medical Specialty Hospital - Cleveland-FairhillComment on above:Performed By: #### CD:[id number] #### [address] [address]Oucxqx [Moles/Vol]136 mmol/JSgitey367-393JcwgtgkpxBrown Memorial HospitalComment on above:Performed By: #### CD:[id number] #### [address] [address]Giyc nitrogen [Mass/Vol]15 mg/dLNormal8-26Brown Memorial HospitalComment on above:Performed By: #### CD:[id number] #### [address] [place] [address]Msus nitrogen/Creatinine [Mass ratio]13.5 mg/dcMojstv71.0-20.0 Brown Memorial HospitalComment on above:Performed By: #### CD:[id number] #### [address] [address]WEH w/ Diffon 87-89-9675Xbewmirvgau distribution width (RBC) [Ratio]12.9 %Lrmudr43.6-14.8BSelect Medical Specialty Hospital - Cleveland-FairhillComment on above: Performed By: #### CBC #### [address] [address]Ymkldlpphi (Bld) [Volume fraction]43.5 %Qgwgpq32.0-53.0 Brown Memorial HospitalComment on above:Performed By: #### CBC #### [address] [address]Zlotjauoeh (Bld) [Mass/Vol]15.4 g/oVQbwbfl57.5-17.5BSelect Medical Specialty Hospital - Cleveland-FairhillComment on above:Performed By: #### CBC #### [address] [address]XWC (RBC) [Entitic mass]31.2 mrEeejsn44.0-35.0Brown Memorial HospitalComment on above:Performed By: #### CBC #### [address] [address]EUJD (RBC) [Mass/Vol]35.3 %Yjaelz80.0-37.0Brown Memorial HospitalComment on above:Performed By: #### CBC #### [address] [address]HMV (RBC) [Entitic vol]88.3 bOPllsrb79.0-100.0Brown Memorial HospitalComment on above:Performed By: #### CBC #### [address] [address]Dwtxcgzs mean volume (Bld) [Entitic vol]9.5 fLNormal6.7-10.6 [facility] SystemComment on above:Performed By: #### CBC #### [address] [address]Zsqiqobux (Bld) [#/Vol]222 x10*3/yhTYdahpu206-279Zsymzdlku Valley Health SystemComment on above:Performed By: #### CBC #### [address] [address]NPG (Bld) [#/Vol]4.93 x10*6/mcLNormal4.30-5.80[facility] SystemComment on above:Performed By: #### CBC #### [address] [address]KDN (Bld) [#/Vol]8.7 x10*3/mcLNormal4.5-11.0[facility] SystemComment on above:Performed By: #### CBC #### [address] [address]Rpjr Autoon 32-69-3615Iqga Absolute0.1 x10*3/mcLNormal0.0-0.2 Brown Memorial HospitalComment on above:Performed By: #### .Automated Diff #### [address] [address]Gmwhebmwd/100 WBC (Bld)0.7 %Normal0.0-1.2BRegency Hospital Cleveland East SystemComment on above:Performed By: #### .Automated Diff #### [address] [address]Uwc Absolute0.4 x10*3/mcLNormal0.0-0.4BRegency Hospital Cleveland East SystemComment on above:Performed By: #### .Automated Diff #### [address] [address]Avsbzymnppu/100 WBC (Bld)4.4 %Normal0.0-6.1BRegency Hospital Cleveland East SystemComment on above:Performed By: #### .Automated Diff #### [address], [place] [address]Rmgujnjomku (Bld) [#/Vol]2.6 x10*3/mcLNormal1.0-4.8BSelect Medical Specialty Hospital - Cleveland-FairhillComment on above:Performed By: #### .Automated Diff #### [address] [address]Ejfgsmtshxz/100 WBC (Bld)29.8 %Rmikop16.2-40.8BSelect Medical Specialty Hospital - Cleveland-FairhillComment on above:Performed By: #### .Automated Diff #### [address] [address]Guon Absolute0.7 x10*3/mcLNormal0.3-1.1BSelect Medical Specialty Hospital - Cleveland-FairhillComment on above:Performed By: #### .Automated Diff #### [address] [address]Ikggmzeds/100 WBC (Bld)7.7 %Normal4.7-13.9BRegency Hospital Cleveland East SystemComment on above:Performed By: #### .Automated Diff #### [address] [address]Mdadja Absolute5.0 x10*3/mcLNormal1.8-7.7BSelect Medical Specialty Hospital - Cleveland-FairhillComment on above:Performed By: #### .Automated Diff #### [address] [address]Rjftlp Auto57.4 %Sariwb20.2-70.8BSelect Medical Special[facility] Hospital [facility] Comment on above:Performed By: #### .Automated Diff #### [address] [address]JY Clinical Summaryon [id number] Clinical Summary [address] [address] ED Clinical Summary Person Information Name: Armani Stevens [place] Age: 38 Years : 1980 Sex: Male PCP: Marital Status: Single Race: White Ethnicity: Not or Language: Chinese Visit Reason: Dizziness; Dizziness Acuity: 3 Enc Type: Emergency Med Service: Emergency Medicine Arrival: 09/20/2018 22:40:38 Discharge: 09/21/2018 00:15:00 LOS: 000 01:35 Checkin: 09/20/2018 22:40:38 Checkout: 09/21/2018 00:15:00 Dispo Type: Home or Self Care Address: [address] [place], [place] [id number] Provider Notes: Diagnosis: 1:Dizziness Problems Active No [...] range between ( 27.2 and 40.8 ) Amite Auto: 7.7 % -- Normal range between [...] range between ( 41.0 and 53.0 ) Amite Absolute: 0.7 x10 MCH: 31.2 pg -- [...] Follow up: With: Address: When: Call the [facility] physician referral line [phone] , only if needed Discharge Orders: Discharge Patient 09/21/18 0:08:00 EDT, Discharge to Home, Self, Dizziness Return to Work/School 09/20/18 22:40:00 EDT, 09/21/18 0:09:00 EDT, 09/20/18 22:40:00 EDT Patient Education Information: DIZZINESS, Unk Cause [facility] Poison Help line: . [facility] Hotline: [place] Tobacco Quit Line: [facility] ([place], [place]) [address]: [phone] [facility] ([place], [place]) [address]: [phone] [facility] [address] [place], [place]: [phone] [facility] Memorial HospitalED Note-Physicianon [id number] Note-Physician Chief Complaint I was at work and got real dizzy. History of Present Illness Patient is a 38 year old male presenting to the ED for dizziness. 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 He states that thedizziness is pounding and like the room is spinning. Patient states that his boss told him he looked pale and to come to the ED. Patient denies sweats and nausea. He states that he last ate at 1830 to day and has had enough water. Patient states [...] round, extraocular movements intact without nystagmus, clear conjunctiva,non-icteric sclera] HENT: [normocephalic, atraumatic, moist mucus membranes, [...] mentation and speech. Moves all extremities x 4without motor or sensory deficit] PSYCHIATRIC: [normal mood [...] in this document, created by the medical secretary teacher for me, accurately reflects the services I [...] discussed with the patient and family present. Reexamination/Reevaluation Patient generally looks well at the time [...] 23:08 57.4 Lymph Auto 09/20/18 23:08 29.8 Amite Auto 09/20/18 23:08 7.7 Eos Auto 09/20/18 23:08 4.4 Basophil Auto 09/20/18 23:08 0.7 Neutro Absolute 09/20/18 23:08 5.0 Lymph Absolute 09/20/18 23:08 2.6 Amite Absolute 09/20/18 23:08 0.7 Eos Absolute 09/20/18 [...] Resonance Imaging No qualifying data available (MRI) Marielos Armstrong Electronically signed by Milan Tran MD 09/21/2018 01:12 [facility]Amb[facility] Patient Educationon 61-29-1056Zrzylnqsym Patient Education Patient Education Materials Name: ArmaanjeffArmani hill Ton Current Date: 02/08/2018 10:33:59 [place] : 1980 The following sheet(s) are the [...] 1 to 2 hours the first day. Youcan make an ice pack by wrapping a [...] wet, you can dry it with a department of sociology chair. ? You may use acetaminophen or [...] be changed to a cast during your follow-upvisit. X-rays may be taken. You will be [...] as directed by your healthcare provider ? [id number] [employer]. [address] [place] [address], [place] [address]. All rights reserved. This information is not intended as a substitute for professional medical care. Always follow your healthcare professional's instructions.[facility] Medicine Office/Clinic Noteon 19-73-0801Fedzhf Medicine Office/Clinic NoteChief Complaint patient states @ 7 am he injured his left elbow at work hitting it on a metal thang causing pain and swelling. History of Present Illness Pleasant 38-year-old male presents for chief complaint of left elbow pain. The patient states that around 7 AM this morning he accidentally bumped his left elbow into a metal thang at work. The patientdenies wanting to file Workmen's Comp. at this time. Patient states that the pain is tolerable whenhe is at rest but states that whenever he extends his arm or fully flex that he does have increaseddiscomfort. States there is mild swelling in that area. Denies any history of surgery or fracture to the affected area. The patient denies any decreased sensation distally in his left arm. Denies anylimitation in range of motion. Review of Systems [...] felt to be degenerative in nature. A smallchip fracture cannot be excluded. Clinical correlation is recommended. Nation is tenderness over the area with a chip fracture was visualized. Patient states he will file Workmen's Comp. Expressed topatient to follow up with the orthopedic doctor [...] No qualifying data available. Electronically signed by Rocael WOODSJames 02/08/18 10:28 [facility] El[facility] 4 Views Lefton [id number] Elbow 4 Views LeftCLINICAL HISTORY: Injury. EXAMINATION: Frontal, lateral and oblique [...] is no joint effusion. Soft tissues are un remarkable. Joint spaces are maintained. IMPRESSION: Tiny curvilinear density adjacent to the medial condyle, felt to be degenerative in nature. A smallchip fracture cannot be excluded. Clinical correlation is recommended. Final Dictated by: Tre Tubbs MD Dictated DT/TM: 02/08/2018 9:46 am Signed by: Tre Tubbs MD Signed (Electronic Signature): 02/08/2018 9:49 am (If Report Is Signed, Electronically Signed in Other Vendor System)Normal [facility] Vital Signs Date TimeVital SignValuePerforming TnvzlbaapMsjtmcmc25-81-1954 14:27-0400 Diastolic blood xxbonnfm41 mm[Hg]Kunal Mcleod DO Work Phone: [facility]07-30-2025 14:27-0400Systolic blood bkehnsyn917 mm[Hg]Kunal Mcleod DO Work Phone: [facility] Laiilg68-67-0619 13:55-0400Body hqqbru506.4 cmKunal Mengs DO Work Phone: [facility] Actaxf51-43-2188 13:55-0400Body mass index (BMI) [Ratio]42.77 kg/m2Kunal Mengs DO Work Phone: [facility] Lziyyy35-10-5411 13:55-0400Body bktodjetwue00.29 [degF]Kunal Mcleod DO Work Phone: [facility] Jumpfy93-61-8524 13:55-0400Body .06 kgKunal Mcleod DO Work Phone: [facility] Zmxxzu17-84-5103 13:55-0400Heart rate 98 /minKunal Mengs DO Work Phone: [facility] Wrtarw52-00-9616 13:55-0400 Respiratory rate20 /minKunal Mengs DO Work Phone: [facility] SkimaTalkOrjvef01-25-7391 13:55-7259ArE1% (BldA) [Mass fraction]95 %Kunal Mcleod DO Work Phone: [facility] Yujync70-19-5249 13:38-0400Body gpaovx221.4 cmKunal Mengs DO Work Phone: [facility] Msehmv05-41-3274 13:38-0400Body mass index (BMI) [Ratio]44.76 kg/m2Kunal Mcleod DO Work Phone: [facility] Zcmcnl12-68-3585 13:38-0400Body gwgilegwlfh06.7 [degF]Kunal Mcleod DO Work Phone: [facility]03-26-2025 13:38-0400Body xkimkk245.86 kgKunal Mcleod DO Work Phone: [facility] Jmcidv17-43-1875 13:38-0400Diastolic blood oadiyfiq13 mm[Hg]Kunal Mcleod DO Work Phone: [facility] Jiuwrm07-16-1523 13:38-0400Heart rate 108 /minKunal Mcleod DO Work Phone: [facility] Hwkyey97-68-6754 13:38-0400 Respiratory rate20 /minJoeyad Mcleod DO Work Phone: [facility]03-26-2025 13:38-8274AyF3% (BldA) [Mass fraction]93 %Kunal Mcleod DO Work Phone: [facility] Nyabez31-33-5150 13:38-0400Systolic blood mm[Hg]Kunal Mcleod DO Work Phone: [facility]01-13-2025 14:54-0500Body pvxumv598.4 cmJoeyad Mcleod DO Work Phone: [facility] Mleyhs31-91-2109 14:54-0500Body mass index (BMI) [Ratio]44.3 kg/m2Kunal Mengs DO Work Phone: [facility] Ddimrb68-06-0581 14:54-0500Body pplabnhljth69 [degF]Kunal Mcleod DO Work Phone: [facility] Txiezj32-31-6567 14:54-0500Body tdpsuz666.32 kgKunal Mcleod DO Work Phone: [facility] Yjerug76-91-0198 14:54-0500Diastolic blood icavwaic85 mm[Hg]Kunal Mcleod DO Work Phone: [facility] Ckqowk78-14-6375 14:54-0500Heart rate 94 /minKuanl Mcleod DO Work Phone: [facility] Oxrpan96-33-6264 14:54-9785MhY5% (BldA) [Mass fraction]96 %Kunal Mcleod DO Work Phone: [facility] Khurcw30-94-6654 14:54-0500Systolic blood cwyirwfm765 mm[Hg]Kunal Mcleod DO Work Phone: [facility] Encounters Encounter DateEncounter TypeCare ProviderFacilityStart: 01-04-2025 End: 41-40-5347JvlvqpUrcl Amira Mcleod DO Work Phone: [facility] Internal Medicine - Family MedicineComment on above:Type 2 diabetes mellitus without complication, without long-term current use of insulin ([facility])Start: 11-30-2024 End: 77-17-1819NezvtyXkdc L Yuhas DO Work Phone: [facility] Internal Medicine - Family MedicineComment on above:Type 2 diabetes mellitus without complication, without long-term current use of insulin ([facility])Start: 10-13-2024 End: 31-10-4772Hsfujs-up encounterKunal Mcleod DO Work Phone: [facility] Internal Medicine - Family MedicineComment on above:Lipid profile, Hemoglobin A1c, Comprehensive metabolic panelStart: 10-13-2024 End: 15-95-8598opadhfxzidZDZCKings County [facility] Center Ambulatory PPGStart: 10-13-2024 End: 76-49-1773Covjqn outpatient visit 25 minutesSruthieyad Mcleod DO Work Phone: [facility] Internal Medicine - Family MedicineComment on above:Type 2 diabetes mellitus without complication, without long-term current use of insulin ([facility]) (Primary Dx); Class 3 severe obesity due to excess calories with serious comorbidity and body mass index (BMI) of40.0 to 44.9 in adult ([facility])Start: 08-24-2024 End: 85-72-2385JazjtlElvp L Taylorhas DO Work Phone: [facility] - Family MedicineComment on above:Type 2 diabetes mellitus without complication, without long-term current use of insulin ([facility])Start: 06-22-2024 End: 79-05-3071OoraheBjyun Katy [facility]ITALProMedica [facility] Internal Medicine - Family MedicineComment on above:Type 2 diabetes mellitus without complication, without long-term current use of insulin ([facility])Start: 06-18-2024 End: 68-63-5100Gveouz OnlyKunal Mengs DO Work Phone: [facility] - [facility] MedicineStart: 06-09-2024 End: 33-17-3305utdufzyksbAZFV L [facility] HospitalStart: 06-09-2024 End: 26-93-3023qqxirtgcpxOPZO [facility] PPGStart: 06-09-2024 End: 28-67-9955Kyluuf outpatient visit 25 minutesKunal Mengs DO Work Phone: [facility] Internal Medicine - Family MedicineComment on above:Type 2 diabetes mellitus without complication, without long-term current use of insulin ([facility]) (Primary Dx); Class 3 severe obesity due to excess calories with serious comorbidity and body mass index (BMI) of40.0 to 44.9 in adult ([facility])Start: 05-31-2024 End: 92-04-0556Ofmoswkqz Dex [facility] - Family MedicineStart: 03-29-2024 End: 40-92-8949dueljbpqlqKFNG L [facility] Centertart: 03-29-2024 End: 67-09-6761Bpmlmo outpatient new 45 minutesKunal Mengs DO Work Phone: [facility] - Family MedicineComment on above:Type 2 diabetes mellitus without complication, without long-term current use of insulin ([facility]) (Primary Dx); Essential hypertension; Class 3 severe obesity due to excess calories with serious comorbidity and body mass index (BMI) of40.0 to 44.9 in adult ([facility])Start: 03-29-2024 End: 31-05-4078evwreurufoIEUUDoctors [facility]ulatory PPGStart: 03-15-2024 End: 76-69-0354Iuizsbrln encounterNo Pcp No PcpPro[facility] Start: 80-43-7112wufydcvkhnQAUONortheast [facility]ulatory PPGStart: 03-89-0468vmudcabymrZOMPNortheast [facility] Ambulatory PPGStart: 01-31-2024 End: 93-47-0316Lvsnmwjfci and management of inpatientMOUHAMMAD A JUMAAProMedica Lvoe HospitalStart: 08-02-2021 End: 02-66-9841nfktlbulmgAL NONE LISTED REQUESTFacility:I2Htvvd: 11-23-2018 End: 41-59-9599Oofsyaqen department patient visitArabella Edwards Facility:[facility] HospitalStart: 10-23-2018 End: 40-60-6868Ujgbtvwgs department patient visitAndbola Tavarez Facility:[facility] HospitalStart: 09-21-2018 End: 03-30-4041Hqcewrgfn department patient visitANDBOLA TRAN Facility:[facility] Procedures DateProcedureProcedure DetailPerforming ClinicianStart: 81-17-1865Zqcfxegrhmniu metabolic panelKunal Amira Mengs DO Work Phone: Start: 62-09-7754Ljuwz panelKunal Collier Yusras DO Work Phone: Start: 49-84-1390Yrqpu depression screening assessment Kunal Taylorcorina DO Work Phone: Start: 97-53-1679Iibzy depression screening assessment Kunal Yusrawilber DO Work Phone: Start: 77-88-3195Pzekr depression screening assessment Kunal Mcleod DO Work Phone: Start: 68-90-2144Xgqqizzbcnyo [Mass/volume] in Urine by Test stripSruthieyad Mcleod DO Work Phone: Start: 78-30-3471Ssnzg depression screening assessment No No Pcp Plan of Treatment DateCare ActivityDetailAuthorStart: 54-30-8143DZoG,Tdap and Td Vaccines (2 - Tdap)DTaP,Tdap and Td Vaccines (2 - Tdap)[facility] SystemStart: 81-28-0641Ikwkes Use: DiabeticStatin Use: DiabeticMercy Health St. Anne Hospitalmobli [facility] Hospitaltart: 14-53-2628Hsqjv BMI ScreeningAdult BMI ScreeningFormerly [facility], later [facility] Morgantontart: 53-05-6948Thkaweoyzk ScreeningDepression ScreeningFormerly [facility], later [facility] Morgantontart: 49-36-6873Sgkmyug ScreeningTobacco ScreeningAultman Orrville Hospital SystemStart: 22-89-6653Vpzcw BMI ScreeningAdult BMI ScreeningAultman Orrville Hospital SystemStart: 95-84-4693Qynslpioud ScreeningDepression ScreeningFormerly [facility], later [facility] Morgantontart: 79-67-5300Awrgyrxi foot examinationDiabetic Foot ExamAultman Orrville Hospital System Start: 81-82-0560Odusoo Use: DiabeticStatin Use: DiabeticDoctors Hospital dentalDoctors System Start: 43-92-2742Aplqwzd ScreeningTobacco ScreeningAultman Orrville Hospital SystemStart: 73-46-0159Ecjvm BMI ScreeningAdult BMI ScreeningAultman Orrville Hospital SystemStart: 31-39-8936Mydzvhmtad ScreeningDepression ScreeningAultman Orrville Hospital SystemStart: 70-52-0122Igqiotg ScreeningTobacco ScreeningAultman Orrville Hospital SystemStart: 74-44-8608Srxyx screening for proteinUrine MicroalbuminDoctors Hospital dentalDoctors System Start: 02-18-2025 End: 80-89-9223Vpldpuc encounter znehuxgto01/05/2025 8:30 AM EST Office Visit [facility] [address] [place] [address] Kunal Mcleod, DO [address] [id number] [facility] MedicineStart: 83-96-3585Ddmze BMI ScreeningAdult BMI ScreeningProKindred Hospital Lima SystemStart: 60-35-3998Htfkrvftus ScreeningDepression ScreeningProKindred Hospital [facility]ima SystemStart: 99-16-8960Zcravml ScreeningTobacco ScreeningProAtrium [facility] Health SystemStart: 23-98-3645Mqkrxqiau vaccinationInfluenza VaccineProKindred Hospital Lima SystemStart: 10-13-2024 End: 29-43-1141Fdtgcqm encounter fifywlhcn98/30/2025 1:30 PM EDT Office Visit [facility] [address] [place] [address] Kunal Mcleod, DO [address] [facility] [place] [facility] MedicineStart: 06-09-2024 End: 26-14-4379Maotdqr encounter vpbdezztq63/26/2025 1:30 PM EDT Office Visit [facility] [address] [place] [address] Kunal Mcleod, DO [address] [facility] [id number] [facility] MedicineStart: 03-29-2024 End: 18-28-6522Xlbdsfl encounter eifvtqqkn15/13/2025 2:30 PM EST Office Visit [facility] [address] [place] [address] Kunal Mcleod, DO [address] [id number] [facility] MedicineStart: 43-24-5454Jakwvwupk vaccination Influenza VaccineFormerly [facility], later [facility] Morgantontart: 17-28-2089UEkG,Tdap and Td Vaccines (1 - Tdap)DTaP,Tdap and Td Vaccines (1 - Tdap)[facility] dentalDoctors [facility] Start: 23-85-8771Ailie BMI Follow Up PlanAdult BMI Follow Up PlanFormerly [facility], later [facility] Morgantontart: 84-58-9063Athocsfp foot examinationDiabetic Foot Exam [facility]ontart: 41-57-9814Uiuatxlb screeningDiabetic Ophthalmology ExamFormerly [facility], later [facility] Morgantontart: 43-07-5229Hghccc Use: DiabeticStatin Use: DiabeticFormerly [facility], later [facility] Morgantontart: 13-69-0481Wxjhxsr CounselingTobacco CounselingFormerly [facility], later [facility] Morgantontart: 27-72-0655Nlaqc screening for protein Urine MicroalbuminShelby Memorial Hospital End: 41-11-1794WIR W Auto Differential panel - BloodCBC auto differential Lab Routine Type 2 diabetes mellitus without complication, without long-term current use of insulin ([facility]) 1 Occurrences starting 03/29/2024 until 03/29/2025 [facility] Work Phone: Comment on above:1 Occurrences starting 03/29/2024 until 03/29/2025 End: 41-29-4440Bklxqvlspnk in LDL [Mass/volume] in Serum or PlasmaLDL cholesterol, direct Lab Routine Type 2 diabetes mellitus without complication, without long-term current use of insulin ([facility]) 1 Occurrences starting 03/29/2024 until 03/29/2025S[facility]by Memorial HospitalComment on above:1 Occurrences starting 03/29/2024 until 03/29/2025 End: 66-69-3652Xhjtrfhwpemsr metabolic 2000 panel - Serum or PlasmaComprehensive metabolic panel Lab Routine Type 2 diabetes mellitus without complication, without long-term current use of insulin ([facility]) 1 Occurrences starting 03/29/2024 until 03/29/2025[facility] Memorial HospitalComment on above:1 Occurrences starting 03/29/2024 until 03/29/2025 End: 40-11-8140Wchdwevyly A1c/Hemoglobin.total in BloodHemoglobin A1c Lab Routine Type 2 diabetes mellitus without complication, without long-term current use of insulin ([facility]) 1 Occurrences starting 03/29/2024 until 03/29/2025 [facility] SystemComment on above:1 Occurrences starting 03/29/2024 until 03/29/2025 End: 89-64-8402Gazbsxoqkjbj - Albumin: Creatinine Urine RatioMicroalbumin - Albumin: Creatinine Urine Ratio Lab Routine Type 2 diabetes mellitus without complication, without long-term current use of insulin ([facility]) 1 Occurrences starting 03/29/2024 until 03/29/2025ProKindred Hospital Lima SystemComment on above:1 Occurrences starting 03/29/2024 until 03/29/2025 Immunizations Immunization DateImmunizationNotesCare KrsbequhOpzsorna97-95-8656esvpeggxvi, tetanus toxoids and pertussis vaccineNicole Donald [facility] Payers DatePayer CategoryPayerPolicy [id number] Care HMO (unspecified) [id number] Service Unit Managed Care - Other [id number] 62-32-8271Whyzgj's Rvblccstfipl26-27-3396[id number] 2..840.1.688097.3.57[id number] 2.840.1.095369.3.57[id number] 2.16.840.1.390040.3.57[id number] 2.16.840.1.455415.3.57[id number] 2.16.840.1.939676.3.57[id number] 2..840.1.172098.3.57[id number] 2.16.840.1.473724.3.57[id number] 2.16.840.1.424010.3.57[id number] 2.16.840.1.351564.3.57[id number] 2..840.1.747774.3.57[id number] 2.16.840.1.464650.3.57[id number] 2..840.1.656915.3.57[id number] 2.16.840.1.214393.3.57[id number] Social History DateTypeDetailFacilityStart: 02-01-2024 End: 70-18-1965Asxvrdn smoking status NHISSmokes tobacco dailyAultman Orrville Hospital SystemHistory of tobacco useCigarette SmokerAultman Orrville Hospital SystemStart: 34-59-1959Tutimcq use and exposureUser of smokeless tobaccoProKindred Hospital Lima SystemHistory of tobacco useChews TobaccoAultman Orrville Hospital SystemStart: 02-01-2024 End: 66-25-6930Eufoorcqw beverage intakeEx-drinker (finding)[facility] SystemStart: 02-01-2024 End: 29-31-7284Pozdkzz of Social functionAultman Orrville Hospital SystemStart: 02-01-2024 End: 18-01-8341QWU UtilitiesAultman Orrville Hospital SystemHas the [employer], gas, oil, or water company threatened to shut off services in your home in past 12MoNo [facility] SystemHow often to you have a drink containing alcohol?Never [facility] HospitalPhillips Holdings and Management Company SystemHow many standard drinks containing alcohol do you have on a typical day?Patient does not drinkMercy Health St. Anne HospitalNullPointertart: 1980 Sex assigned at birthNot on fileMercy Health St. Anne Hospitalmobli SystemStart: 06-88-8226IsqPioc (finding)[facility] HospitalPhillips Holdings and Management Company SystemStart: 31-24-4421Xgaujdp use and exposureFormer smokeless tobacco userProMercy Health Clermont Hospitalmobli System Goals DatePatient GoalDesired Activity/StatePersonal health goalComment on above: Evaluation of progress towards goal: Safe transition to home with spouse Clinical Notes 03-15-2024 to 10-13-2024 Note Date & CvxcZbktWbrgahda43-05-4064 History of Present illness Narrative* Kunal Mcleod, DO - 10/13/2024 1:30 PM EDT IM PROGRESS NOTE Patient - Armani Stevens Age - 44 y.o. - 1980 ASSESSMENT & PLAN 1. Type 2 diabetes mellitus without complication, without long-term current use of insulin ([facility]) (Primary) -goals of treatment reviewed with the patient -currently on metformin plus Terzepatide -repeat A1c to assess efficacy of current treatment plan and adjust as needed to achieve goal - Comprehensive metabolic panel; Future - Hemoglobin A1c; Future - Lipid profile; Future - Lipid profile - Hemoglobin A1c - Comprehensive metabolic panel 2. Class 3 severe obesity due to excess calories with serious comorbidity and body mass index (BMI)of 40.0 to 44.9 in adult ([facility]) -is losing weight with combination of diet plus Terzepatide -no changes at this time Subjective DIABETIC VISIT This is a follow up of a pre-existing problem. Patient self monitoring includes finger stick BG checkin time/day. Glucose ranges from 120-160 mg/dL. Patient experiences hypoglycemia None. Patient symptoms of hyperglycemia include: none. Current prescribed diet is fairly healthy diet with limited sugars and fats. Patient is following the prescribed diet plan. Home activity includes: The patient has a physically strenuous job, but has no regular exercise apart from work. . Patient does not experience numbness or burning in their hands or feet. Patient does not have vision changes. Last eye exam was: Two years ago Patient BP monitoring is done sporadically, and can't recall values. Patient reports: taking medications as instructed, no medication side effects noted, patient does not perform home BP monitoring, no chest pain on exertion, no dyspnea on exertion, no swelling of ankles, no orthostatic dizziness or lightheadedness, no palpitations, and no intermittent claudication symptoms Issues affecting compliance with diabetic self management include: None. Is using the Terzepatide without side effects, and does notice he has less hungry and has lost weight. Tolerating metformin aswell. A review of systems was negative except for the following: General: weight loss Musculoskeletal: joint stiffness. Exam BP 122/84 (BP Site: Left Arm, BP Postition: Sitting) Pulse 98 Temp 36.8 C (98.3 F) (Oral) Resp 20 Ht 185.4 cm (6' 1 ) Wt (!) 147.1 kg (324 lb 3.2 oz) SpO2 95% BMI 42.77 kg/m Physical Exam Vitals reviewed. Constitutional: General: He is not in acute distress. Appearance: He is well-developed. He is obese. He is not toxic-appearing. HENT: Head: Normocephalic. Right Ear: External ear normal. Left Ear: External ear normal. Nose: Nose normal. Mouth/Throat: Mouth: Mucous membranes are moist. Eyes: General: No scleral icterus. Neck: Vascular: No carotid bruit. Cardiovascular: Rate and Rhythm: Normal rate. Pulses: Normal pulses. Heart sounds: No murmur heard. No gallop. Pulmonary: Effort: Pulmonary effort is normal. Breath sounds: No wheezing or rales. Abdominal: Palpations: Abdomen is soft. Musculoskeletal: Right lower leg: No edema. Left lower leg: No edema. Lymphadenopathy: Cervical: No cervical adenopathy. Skin: General: Skin is warm and dry. Coloration: Skin is not jaundiced. Findings: No bruising. Neurological: Mental Status: He is alert and oriented to person, place, and time. Sensory: No sensory deficit (Monofilament testing unremarkable bilaterally on the feet and toes). Motor: No weakness. Coordination: Coordination normal. Deep Tendon Reflexes: Reflexes are normal and symmetric. Psychiatric: Mood and Affect: Mood normal. Behavior: Behavior normal. Meds Current Outpatient Medications: atorvastatin (LIPITOR) 20 mg tablet, Take 1 tablet (20 mg total) by mouth in the morning., Disp: 90tablet, Rfl: 1 metFORMIN (GLUCOPHAGE) 500 mg tablet, TAKE 1 TABLET BY MOUTH TWICE DAILY WITH MEALS (IN THE MORNINGAND EVENING), Disp: 180 tablet, Rfl: 0 tirzepatide (MOUNJARO) 5 mg/0.5 mL pen injector, Inject 5 mg under the skin every 7 days., Disp: 6 mL, Rfl: 1 Lab Results No visits with results within 1 Month(s) from this visit. Latest known visit with results is: Hospital Outpatient Visit on 06/09/2024 Component Date Value Ref Range Status Sodium 06/09/2024 136 134 - 146 mmol/L Final Potassium, Bld 06/09/2024 4.1 3.5 - 5.0 mmol/L Final Chloride 06/09/2024 100 98 - 109 mmol/L Final CO2 06/09/2024 25 22 - 32 mmol/L Final Anion gap 06/09/2024 11 5 - 15 mmol/L Final BUN 06/09/2024 16 5 - 23 mg/dL Final Creatinine 06/09/2024 1.01 0.60 - 1.30 mg/dL Final Glucose 06/09/2024 145 (H) 65 - 99 mg/dL Final Calcium 06/09/2024 9.5 8.5 - 10.5 mg/dL Final Total Protein 06/09/2024 8.2 (H) 6.0 - 8.0 g/dL Final Albumin 06/09/2024 4.6 3.2 - 5.3 g/dL Final Alkaline Phosphatase 06/09/2024 90 39 - 130 U/L Final AST 06/09/2024 53 (H) 0 - 41 U/L Final ALT 06/09/2024 85 (H) 0 - 40 U/L Final Total bilirubin 06/09/2024 0.3 0.3 - 1.2 mg/dL Final eGFR (CKD-EPI)non-race dependent 06/09/2024 >90 >59 ml/min/1.73sq.m Final Hemoglobin A1C 06/09/2024 6.7 (H) 4.4 - 5.6 % Final Average glucose 06/09/2024 146 mg/dL Final Other Testing No results found. Kunal Mcleod DO., [facility] Phys[facility] Office: [phone] documented in this encounterShelby Memorial Hospital03-26-2025 History of Present illness Narrative* Kunal Mcleod DO - 06/09/2024 1:30 PM EDT IM PROGRESS NOTE Patient - Armani Stevens Age - 44 y.[facility] 1980 [id number] ASSESSMENT & PLAN 1. Type 2 diabetes mellitus without complication, without long-term current use of insulin ([facility]) (Primary) -goals of treatment reviewed with the patient. -repeat A1c to assess efficacy of current treatment. Last A1c was acceptable, but his weight has not come down with use of metformin on its own -I believe he would benefit from a diabetic standpoint as well as weight loss using a G LP 1. Patient is agreeable to trying Ozempic. - Comprehensive metabolic panel; Future - Hemoglobin A1c; Future - semaglutide (OZEMPIC) 0.25 mg or 0.5 mg (2 mg/3 mL) pen injector; Inject 0.5 mg under the skin every 7 days. Dispense: 6 mL; Refill: 1 - atorvastatin (LIPITOR) 20 mg tablet; Take 1 tablet (20 mg total) by mouth in the morning. Dispense: 90 tablet; Refill: 1 2. Class 3 severe obesity due to excess calories with serious comorbidity and body mass index (BMI)of 40.0 to 44.9 in adult ([facility]) -we discussed continued efforts at restricting carbs in overall calories -addition of G LP 1 agent as above Subjective DIABETIC VISIT This is a follow up of a pre-existing problem. Patient self monitoring includes Not checking BG at home. Patient experiences hypoglycemia None. Patient symptoms of hyperglycemia include: none. Current prescribed diet is fairly healthy diet with limited sugars and fats. Patient is following the prescribed diet plan. Home activity includes: The patient has a physically strenuous job, but has no regular exercise apart from work. . Patient does not experience numbness or burning in their hands or feet. Patient does not have vision changes. Last eye exam was: Never Patient BP monitoring is done regularly, but did not bring log and does not recall values. Patient reports: taking medications as instructed, no medication side effects noted, no chest pain on exertion, no dyspnea on exertion, no swelling of ankles, no orthostatic dizziness or lightheadedness, no palpitations, and no intermittent claudication symptoms Issues affecting compliance with diabetic self management include: none A review of systems was negative except for the following: General: weight gain Respiratory: STOP-BANG score 3/7 today. Exam BP 118/80 (BP Site: Left Arm, BP Postition: Sitting, BP CUFF SIZE: L (13-17 inches)) Pulse 108 Temp 36.5 C (97.7 F) (Oral) Resp 20 Ht 185.4 cm (6' 0.99 ) Wt (!) 153.9 kg (339 lb 3.2 oz) SpO2 93% BMI 44.76 kg/m Physical Exam Vitals reviewed. Exam conducted with a weekend caregiver present (). Constitutional: General: He is not in acute distress. Appearance: He is well-developed. He is obese. He is not toxic-appearing. HENT: Head: Normocephalic. Right Ear: External ear normal. Left Ear: External ear normal. Nose: Nose normal. Mouth/Throat: Mouth: Mucous membranes are moist. Eyes: General: No scleral icterus. Neck: Vascular: No carotid bruit. Cardiovascular: Rate and Rhythm: Normal rate. Pulses: Normal pulses. Heart sounds: No murmur heard. No gallop. Pulmonary: Effort: Pulmonary effort is normal. Breath sounds: No wheezing or rales. Abdominal: Palpations: Abdomen is soft. Musculoskeletal: Right lower leg: No edema. Left lower leg: No edema. Lymphadenopathy: Cervical: No cervical adenopathy. Skin: General: Skin is warm and dry. Coloration: Skin is not jaundiced. Findings: No bruising. Neurological: Mental Status: He is alert and oriented to person, place, and time. Sensory: No sensory deficit (Monofilament testing unremarkable bilaterally on the feet and toes). Motor: No weakness. Coordination: Coordination normal. Deep Tendon Reflexes: Reflexes are normal and symmetric. Psychiatric: Mood and Affect: Mood normal. Behavior: Behavior normal. Left: Pulses Posterior Tibial: present Vibratory sensation normal Filament test present Right: Pulses Posterior Tibial: present Vibratory sensation normal Filament test present Meds Current Outpatient Medications: metFORMIN (GLUCOPHAGE) 500 mg tablet, Take 1 tablet (500 mg total) by mouth in the morning and 1 tablet (500 mg total) in the evening. Take with meals., Disp: 180 tablet, Rfl: 0 atorvastatin (LIPITOR) 20 mg tablet, Take 1 tablet (20 mg total) by mouth in the morning., Disp: 90tablet, Rfl: 1 semaglutide (OZEMPIC) 0.25 mg or 0.5 mg (2 mg/3 mL) pen injector, Inject 0.5 mg under the skin every 7 days., Disp: 6 mL, Rfl: 1 Lab Results No visits with results within 1 Month(s) from this visit. Latest known visit with results is: Hospital Outpatient Visit on 03/29/2024 Component Date Value Ref Range Status Microalbumin urine 03/29/2024 1.0 0.0 - 1.9 mg/dL Final Urine creat 03/29/2024 380.43 mg/dL Final Alb/creat ratio 03/29/2024 2.6 0.0 - 30.0 mg/g creat Final Sodium 03/29/2024 138 134 - 146 mmol/L Final Potassium, Bld 03/29/2024 4.1 3.5 - 5.0 mmol/L Final Chloride 03/29/2024 104 98 - 109 mmol/L Final CO2 03/29/2024 28 22 - 32 mmol/L Final Anion gap 03/29/2024 6 5 - 15 mmol/L Final BUN 03/29/2024 10 5 - 23 mg/dL Final Creatinine 03/29/2024 0.95 0.60 - 1.30 mg/dL Final Glucose 03/29/2024 108 (H) 65 - 99 mg/dL Final Calcium 03/29/2024 9.6 8.5 - 10.5 mg/dL Final Total Protein 03/29/2024 8.1 (H) 6.0 - 8.0 g/dL Final Albumin 03/29/2024 4.2 3.2 - 5.3 g/dL Final Alkaline Phosphatase 03/29/2024 91 39 - 130 U/L Final AST 03/29/2024 32 0 - 41 U/L Final ALT 03/29/2024 48 (H) 0 - 40 U/L Final Total bilirubin 03/29/2024 0.3 0.3 - 1.2 mg/dL Final eGFR (CKD-EPI)non-race dependent 03/29/2024 >90 >59 ml/min/1.73sq.m Final Direct LDL 03/29/2024 163 (H) <130 mg/dL Final White Blood Cells 03/29/2024 11.0 4.0 - 11.0 X10E9/L Final RBC count 03/29/2024 4.99 4.10 - 5.70 X10E12/L Final Hemoglobin 03/29/2024 15.6 13.0 - 17.0 g/dL Final Hematocrit 03/29/2024 45.6 39 - 49 % Final MCV 03/29/2024 91 80 - 100 fL Final MCH 03/29/2024 31.4 27 - 34 pg Final MCHC 03/29/2024 34.3 32 - 36 g/dL Final RDW 03/29/2024 12.9 11.5 - 15.0 % Final Platelets 03/29/2024 247 150 - 450 X10E9/L Final MPV 03/29/2024 10.4 7 - 12 fL Final % neutrophils 03/29/2024 56.5 % Final % lymphocytes 03/29/2024 30.9 % Final % monocytes 03/29/2024 8.2 % Final % eosinophils 03/29/2024 3.0 % Final % Basophils 03/29/2024 1.4 % Final Neutrophils Absolute (A) 03/29/2024 6.2 1.5 - 6.6 X10E9/L Final Lymphocytes Absolute 03/29/2024 3.4 1.0 - 3.5 X10E9/L Final Monocytes Absolute 03/29/2024 0.9 0 - 0.9 X10E9/L Final Eosinophils Absolute 03/29/2024 0.3 0.0 - 0.4 X10E9/L Final Basophils Absolute 03/29/2024 0.2 0.0 - 0.2 X10E9/L Final Hemoglobin A1C 03/29/2024 6.8 (H) 4.4 - 5.6 % Final Average glucose 03/29/2024 148 mg/dL Final Other Testing No results found. Kunal Mcleod DO., [facility] Physicians Office: [phone] [facility] Miscellaneous Notes* Telephone Encounter - Sailaja Bennett CMA - 05/31/2024 10:23 AM EDT Patient would like the rouvastatin 10mg sent to the pharmacy * Telephone Encounter - Kunal Mcleod DO - 05/31/2024 10:23 AM EDT Message noted. What rosuvastatin? [facility] Telephone encounter Note* Telephone Encounter - Sailaja Bennett CMA - 05/31/2024 10:23 AM EDT Patient would like the rouvastatin 10mg sent to the pharmacy [facility]03-17-[facility] Telephone encounter Note* Telephone Encounter - Kunal Mcleod DO - 05/31/2024 10:23 AM EDT Message noted. What rosuvastatin? [facility]01-[facility] History of Present illness Narrative* Kunal Mcleod DO - 03/29/2024 2:30 PM EST IM PROGRESS NOTE Patient - Armani Stevens Age - 44 y.o. - [address] [facility] # - [id number] ASSESSMENT & PLAN 1. Type 2 diabetes mellitus without complication, without long-term current use of insulin ([facility]) (Primary) -patient recently diagnosed with type 2 diabetes while in the hospital and started on metformin -currently taking the metformin without problems -we reviewed the diagnostic criteria for the diabetes, as well as complications associated with thediabetes, and recommendations for weight loss and activity levels - CBC auto differential; Future - Comprehensive metabolic panel; Future - Hemoglobin A1c; Future - Microalbumin - Albumin: Creatinine Urine Ratio; Future - LDL cholesterol, direct; Future 2. Essential hypertension -current blood pressure reading in normal range -was not prescribed medication for blood pressure at discharge -we can continue to monitor 3. Class 3 severe obesity due to excess calories with serious comorbidity and body mass index (BMI)of 40.0 to 44.9 in adult ([facility]) -has gained a large amount of weight -we discussed the importance of weight control in controlling his other medical problems -once lab work back, may want to consider dietitian consult -would probably benefit from medical treatment of weight loss with G LP 1 agent Subjective 44-year-old male presents for a new patient visit. He has been admitted to the hospital about 6 weeks ago with left facial numbness, left hand numbness and weakness, but normal function of his left leg. 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 He wasfound to have new onset diabetes at that time with an A1c of 6.7%. He had no issues with hyperlipidemia or hypertension. He was started on metformin. -the patient does report he has gained quite a bit of weight over the last 6 months. Currently 335 lb, he normally is around 275 lb. He has been less active. He does not follow any particular diet. Prior to this hospitalization, he had never been diagnosed with any long-term problems. -currently tolerating the metformin without side effects -his past family, social and surgical history were reviewed and updated. A review of systems was negative except for the following: General: weight gain ENT: nasal congestion. Exam BP 120/80 (BP Site: Left Arm, BP Postition: Sitting) Pulse 94 Temp 36.1 C (97 F) (Tympanic) Ht 185.4 cm (6' 1 ) Wt (!) 152.3 kg (335 lb 12.8 oz) SpO2 96% BMI 44.30 kg/m Physical Exam Vitals reviewed. Constitutional: General: He is not in acute distress. Appearance: He is well-developed. He is obese. He is not toxic-appearing. HENT: Head: Normocephalic. Right Ear: Ear canal and external ear normal. Left Ear: Ear canal and external ear normal. Nose: Nose normal. Mouth/Throat: Mouth: Mucous membranes are moist. Pharynx: Oropharynx is clear. Eyes: General: No scleral icterus. Neck: Vascular: No carotid bruit. Cardiovascular: Rate and Rhythm: Normal rate. Pulses: Normal pulses. Heart sounds: No murmur heard. No gallop. Pulmonary: Effort: Pulmonary effort is normal. Breath sounds: No wheezing or rales. Abdominal: Palpations: Abdomen is soft. Musculoskeletal: Right lower leg: No edema. Left lower leg: No edema. Skin: General: Skin is warm and dry. Coloration: Skin is not jaundiced. Findings: No bruising. Neurological: Mental Status: He is alert and oriented to person, place, and time. Sensory: No sensory deficit (Monofilament testing unremarkable bilaterally on the feet and toes). Motor: No weakness. Coordination: Coordination normal. Deep Tendon Reflexes: Reflexes are normal and symmetric. Psychiatric: Mood and Affect: Mood normal. Behavior: Behavior normal. Meds Current Outpatient Medications: metFORMIN (GLUCOPHAGE) 500 mg tablet, Take 1 tablet (500 mg total) by mouth in the morning and 1 tablet (500 mg total) in the evening. Take with meals. Do all this for 90 days., Disp: 180 tablet, Rfl: 0 Lab Results No visits with results within 1 Month(s) from this visit. Latest known visit with results is: Admission on 01/31/2024, Discharged on 02/02/2024 Component Date Value Ref Range Status Cholesterol 02/01/2024 203 (H) 150 - 200 mg/dL Final Triglycerides 02/01/2024 98 27 - 150 mg/dL Final HDL Cholesterol 02/01/2024 45 >39 mg/dL Final VLDL 02/01/2024 20 0 - 30 mg/dL Final LDL (calc) 02/01/2024 138 (H) <130 mg/dL Final Cholesterol:HDL Ratio 02/01/2024 4.5 1.0 - 5.0 Final White Blood Cells 02/01/2024 11.6 (H) 4.0 - 11.0 X10E9/L Final RBC count 02/01/2024 5.21 4.10 - 5.70 X10E12/L Final Hemoglobin 02/01/2024 16.1 13.0 - 17.0 g/dL Final Hematocrit 02/01/2024 47.1 39 - 49 % Final MCV 02/01/2024 90 80 - 100 fL Final MCH 02/01/2024 30.8 27 - 34 pg Final MCHC 02/01/2024 34.1 32 - 36 g/dL Final RDW 02/01/2024 12.9 11.5 - 15.0 % Final Platelets 02/01/2024 256 150 - 450 X10E9/L Final MPV 02/01/2024 10.5 7 - 12 fL Final % neutrophils 02/01/2024 88.6 % Final % lymphocytes 02/01/2024 9.1 % Final % monocytes 02/01/2024 2.1 % Final % eosinophils 02/01/2024 0.0 % Final % Basophils 02/01/2024 0.2 % Final Neutrophils Absolute (A) 02/01/2024 10.2 (H) 1.5 - 6.6 X10E9/L Final Lymphocytes Absolute 02/01/2024 1.1 1.0 - 3.5 X10E9/L Final Monocytes Absolute 02/01/2024 0.2 0 - 0.9 X10E9/L Final Eosinophils Absolute 02/01/2024 0.0 0.0 - 0.4 X10E9/L Final Basophils Absolute 02/01/2024 0.0 0.0 - 0.2 X10E9/L Final Sodium 02/01/2024 135 134 - 146 mmol/L Final Potassium, Bld 02/01/2024 4.5 3.5 - 5.0 mmol/L Final Chloride 02/01/2024 101 98 - 109 mmol/L Final CO2 02/01/2024 24 22 - 32 mmol/L Final Anion gap 02/01/2024 10 5 - 15 mmol/L Final BUN 02/01/2024 12 5 - 23 mg/dL Final Creatinine 02/01/2024 0.95 0.60 - 1.30 mg/dL Final Glucose 02/01/2024 341 (H) 65 - 99 mg/dL Final Calcium 02/01/2024 9.6 8.5 - 10.5 mg/dL Final eGFR (CKD-EPI)non-race dependent 02/01/2024 >90 >59 ml/min/1.73sq.m Final Hemoglobin A1C 02/01/2024 6.7 (H) 4.4 - 5.6 % Final Average glucose 02/01/2024 146 mg/dL Final Bedside glucose 02/01/2024 201 (H) 65 - 99 mg/dL Final Bedside glucose 02/01/2024 243 (H) 65 - 99 mg/dL Final White Blood Cells 02/02/2024 20.6 (H) 4.0 - 11.0 X10E9/L Final RBC count 02/02/2024 5.08 4.10 - 5.70 X10E12/L Final Hemoglobin 02/02/2024 16.2 13.0 - 17.0 g/dL Final Hematocrit 02/02/2024 46.5 39 - 49 % Final MCV 02/02/2024 92 80 - 100 fL Final MCH 02/02/2024 31.8 27 - 34 pg Final MCHC 02/02/2024 34.7 32 - 36 g/dL Final RDW 02/02/2024 13.2 11.5 - 15.0 % Final Platelets 02/02/2024 272 150 - 450 X10E9/L Final MPV 02/02/2024 9.9 7 - 12 fL Final % neutrophils 02/02/2024 73.9 % Final % lymphocytes 02/02/2024 15.9 % Final % monocytes 02/02/2024 9.5 % Final % eosinophils 02/02/2024 0.1 % Final % Basophils 02/02/2024 0.6 % Final Neutrophils Absolute (A) 02/02/2024 15.3 (H) 1.5 - 6.6 X10E9/L Final Lymphocytes Absolute 02/02/2024 3.3 1.0 - 3.5 X10E9/L Final Monocytes Absolute 02/02/2024 2.0 (H) 0 - 0.9 X10E9/L Final Eosinophils Absolute 02/02/2024 0.0 0.0 - 0.4 X10E9/L Final Basophils Absolute 02/02/2024 0.1 0.0 - 0.2 X10E9/L Final Sodium 02/02/2024 141 134 - 146 mmol/L Final Potassium, Bld 02/02/2024 4.0 3.5 - 5.0 mmol/L Final Chloride 02/02/2024 104 98 - 109 mmol/L Final CO2 02/02/2024 28 22 - 32 mmol/L Final Anion gap 02/02/2024 9 5 - 15 mmol/L Final BUN 02/02/2024 16 5 - 23 mg/dL Final Creatinine 02/02/2024 0.94 0.60 - 1.30 mg/dL Final Glucose 02/02/2024 278 (H) 65 - 99 mg/dL Final Calcium 02/02/2024 9.4 8.5 - 10.5 mg/dL Final eGFR (CKD-EPI)non-race dependent 02/02/2024 >90 >59 ml/min/1.73sq.m Final Other Testing No results found. MR brain with and without contrast 02/01/2024 Kunal Mcleod DO., [facility] Physicians Office: [phone] documented in this [facility]12-30-2024 Miscellaneous Notes* Telephone Encounter - Irene Maya - 03/15/2024 12:21 PM EST [facility] 03/15/24 to schedule ENT appt. documented in this [facility]12-30-2024 Telephone encounter Note* Telephone Encounter - Irene Maya - 03/15/2024 12:21 PM EST [facility] 03/15/24 to [facility]. [facility] Diagnosis Type 2 diabetes mellitus without complication, without long-term current use of insulin ([facility])- Primary Essential hypertension Unspecified essential hypertension Class 3 severe obesity due to excess calories with serious comorbidity and body mass index (BMI) of40.0 to 44.9 in adult ([facility]) documented in this encounter [facility]* Diagnosis Type 2 diabetes mellitus without complication, without long-term current use of insulin ([facility])- Primary Class 3 severe obesity due to excess calories with serious comorbidity and body mass index (BMI) of40.0 to 44.9 in adult ([facility]) documented in this encounter [facility]* Diagnosis Type 2 diabetes mellitus without complication, without long-term current use of insulin ([facility]) documented in this encounter [facility]* Diagnosis Type 2 diabetes mellitus without complication, without long-term current use of insulin ([facility]) documented in this encounter [facility]* Diagnosis Type 2 diabetes mellitus without complication, without long-term current use of insulin ([facility])- Primary Class 3 severe obesity due to excess calories with serious comorbidity and body mass index (BMI) of40.0 to 44.9 in adult ([facility]) documented [facility] encounter [facility] filedocumented in this encounter [facility] on filedocumented in this encounter [facility] on filedocumented in this encounter [facility] on filedocumented in this encounter [facility] on filedocumented in this encounter [facility] on filedocumented in this encounter [facility]Not on filedocumented in this encounter [facility] Summary Purpose Family History No Family History Records FoundNo Family History Records FoundNo Family History Records FoundNo Family History Records Found Advance Directives Date ActivatedDate GdirovctbhbFftprfxf76/17/2024 1:00 AM02/02/2024 6:45 PMDate ActivatedDate MhvkodecaguJmlvdtem57/17/2024 1:00 AM11/ 6:45 PM Additional Source Comments (unrecognized sect ion and content) No Status Records FoundNo Status Records FoundNo Status Records FoundNo Status Records Found INFORMATION SOURCE (unrecogn ized section and content) DATE CREATED AUTHOR 12/20/2018 [facility] DATE CREATED AUTHOR AUTHOR'S ORGANIZ ATION 08/06/2021 [facility] DATE CREATED AUTHOR AUTHOR'S ORGANIZ ATION 06/11/2024 [facility] DATE CREATED AUTHOR AUTHOR'S ORGANIZ ATION 10/15/2024 [facility] Reason for Visit (unrecogniz ed section and content) ReasonCommentsNew PatientSpecialtyDiagnoses / ProceduresReferred By Contact Referred To Contact Diagnoses Newly diagnosed diabetes ([facility]) Essential hypertension Emily Chaudhry MD [address] [place] [address] Phone: tel: fax: Referral IDStatusReasonStart DateExpiration DateVisits RequestedVisits [id number] Weight lossReasonOnset DateCommentsMed Waniss4206/22/2024ReasonCommentsMed Refill ReasonCommentsDiabetes Care Teams (unrecognized sec tion and content) Team MemberRelationshipSpecialtyStart DateEnd Date Kunal Mcleod DO [address] [place] [address] PCP - GeneralInternal Medicine03/29/24Team MemberRelationshipSpecialtyStart Date End Date Kunal Mcleod DO [address] [place] [address] PCP - GeneralInternal Medicine03/29/24Team MemberRelationshipSpecialtyStart Date End Date Kunal Mcleod DO [address] [place] [address] [facility]03/29/24Te MemberRelationshipSpecialtyStart Date End Date Kunal Mcleod DO [address] [place] [address] [facility]03/29/24Te MemberRelationshipSpecialtyStart Date End Date Kunal Mcleod DO [address] [place] [address] [facility]03/29/24Te MemberRelationshipSpecialtyStart Date End Date Kunal Mcleod DO [address] [place] [address] [facility]03/29/24Te MemberRelationshipSpecialtyStart Date End Date Kunal Mcleod DO [address] [place] [address] [facility]03/29/24Te MemberRelationshipSpecialtyStart Date End Date Kunal Mcleod DO [address] [place] [address] [facility]03/29/24 FOR RECORDS PERTAINING TO PATIENTS WHO ARE [...] BE BASED ON THE PRIMARY CLINICAL RECORDS. [facility]. provides no warranty or guarantee of the accuracy or completeness of information in this document.
--- NOTE | 2025-01-05 09:37 | ED.GENADUL1 ---
HPI HPI - General Adult General Chief complaint: Fever Stated complaint: FEVER BACK PAIN Time Seen by Provider: 01/05/25 09:20 Source: patient Mode of arrival: walk-in Limitations: no limitations History of Present Illness HPI narrative: 44-year-old male presents for fever and not feeling well. His symptoms started during the night. He had done a great deal of heavy lifting yesterday and now is back to hurting a bit. He does not complain of a cough or vomiting or diarrhea. He has not been around any ill people. He had ibuprofen last night, none today. Related Data Home Medications ?Medication ?Instructions ?Recorded ?Confirmed metformin 500 mg tablet 1,000 mg PO DAILY 02/10/24 01/05/25 atorvastatin 20 mg tablet 20 mg PO DAILY 01/05/25 01/05/25 Allergies Allergy/AdvReac Type Severity Reaction Status Date / Time No Known Drug Allergies Allergy Verified 01/05/25 09:20 Opioid HPI Opioid Management Most Recent Opioid Data: Last Pain Scale 7 Today, 11:01 Last MAY Pain Assessment Today, 11:01 Review of Systems ROS Narrative A ten point review of systems is negative except as noted above. PFSH PFSH Social History Little interest or pleasure in doing things: not at all Feeling down, depressed, or hopeless: not at all Exam Narrative Exam Narrative: Nurses note and vital signs reviewed General:The patient appears well and in no apparent distress.Patient is resting comfortably on cart. Skin:Warm, dry, no pallor noted.There is no rash noted. Head:Normocephalic, atraumatic Eye: Normal conjunctiva, no drainage Ears, Nose, Mouth, and Throat: oral mucosa is moist. Nares patent. Cardiovascular:Regular Rate and Rhythm, tachycardic Respiratory:Patient is in no distress, no accessory muscle use, lungs are clear to auscultation, no wheezing, rales or rhonchi Back:non-tender to palpation GI: Soft and nontender Musculoskeletal: The patient has no evidence of calf tenderness, no pitting edema, symmetrical pulses noted bilaterally Neurological:A&O, normal speech Psychiatric:Cooperative Constitutional Vital Signs, click to edit/add: Last Vital Signs Temp 100.6 F H 01/05/25 12:05 Pulse 117 H 01/05/25 12:05 Resp 20 01/05/25 12:05 BP 132/93 H 01/05/25 12:05 Pulse Ox 98 01/05/25 12:05 O2 Del Method Room Air 01/05/25 09:58 Course Vital Signs Vital signs: Vital Signs Temperature 102.9 F H 01/05/25 09:21 Pulse Rate 137 H 01/05/25 09:21 Respiratory Rate 20 01/05/25 09:21 Blood Pressure 133/87 01/05/25 09:21 Pulse Oximetry 97 01/05/25 09:21 Oxygen Delivery Method Room Air 01/05/25 09:21 Temperature 100.6 F H 01/05/25 12:05 Pulse Rate 117 H 01/05/25 12:05 Respiratory Rate 20 01/05/25 12:05 Blood Pressure 132/93 H 01/05/25 12:05 Pulse Oximetry 98 01/05/25 12:05 Oxygen Delivery Method Room Air 01/05/25 09:58 Medical Decision Making MDM Narrative Medical decision making narrative: His workup here is negative. COVID and influenza test are negative. Chest x-ray shows no pneumonia and there is no UTI. Temperature is down significantly and he has been able to rest here. He is discharged home. Treatment diagnosis and follow-up were discussed with the patient. Differential Diagnosis Differential Diagnosis: Viral illness, COVID, influenza, pneumonia, UTI Lab Data Lab results reviewed: Yes I reviewed the patient's lab results Labs: Lab Results 01/05/25 01/05/25 01/05/25 Range/Units 09:44 09:46 11:03 WBC 9.4 (4.0-11.0) 10^3/uL RBC 5.29 (4.70-6.10) 10^6/uL Hgb 15.9 (14.0-18.0) g/dL Hct 45.9 (42.0-54.0) % MCV 86.8 (80.0-94.0) fL MCH 30.1 (25.9-34.0) pg MCHC 34.6 (29.9-35.2) g/dL RDW 12.1 (11.0-15.0) % Plt Count 179 (150-450) 10^3/uL MPV 10.6 (9.5-13.5) fL Neut % (Auto) 80.8 H (43.0-75.0) % Lymph % (Auto) 11.5 L (20.5-60.0) % Payne % (Auto) 7.2 (1.7-12.0) % Eos % (Auto) 0.0 L (0.9-7.0) % Baso % (Auto) 0.3 (0.2-2.0) % Neut # (Auto) 7.6 H (1.4-6.5) 10^3/uL Lymph # (Auto) 1.1 L (1.2-3.8) 10^3/uL Payne # (Auto) 0.7 (0.3-0.8) 10^3/uL Eos # (Auto) 0.0 (0.0-0.7) 10^3/uL Baso # (Auto) 0.0 (0.0-0.1) 10^3/uL Abs Immat Gran (auto) 0.02 (0.00-0.03) 10^3/uL Imm/Tot Granulo (auto) 0.2 (0.0-0.5) % Sodium 136 (136-145) mmol/L Potassium 4.2 (3.5-5.1) mmol/L Chloride 101 (98-107) mmol/L Carbon Dioxide 26.0 (21.0-32.0) mmol/L Anion Gap 13.2 BUN 11.0 (7.0-18.0) mg/dL Creatinine 1.52 H (0.70-1.30) mg/dL Est GFR ( Amer) >60 (>=60 mL/min/1.73m^2) Est GFR (Non-Af Amer) 51 L (>=60 mL/min/1.73m^2) BUN/Creatinine Ratio 7.2 Glucose 142 H (74-106) mg/dL Calcium 8.8 (8.5-10.1) mg/dL Urine Color Lt. yellow (YELLOW) Urine Clarity Clear (CLEAR) Urine pH 7.0 (5.0-9.0) Ur Specific [place] 1.015 (1.005-1.025) Urine Protein Negative (NEG/TRACE) mg/dL Urine Glucose (UA) Negative (NEGATIVE) mg/dL Urine Ketones Negative (NEGATIVE) mg/dL Urine Occult Blood Negative (NEGATIVE) Urine Nitrite Negative (NEGATIVE) Urine Bilirubin Negative (NEGATIVE) Urine Urobilinogen 1.0 (0.2-1.0) EU/dL Ur Leukocyte Esterase Negative (NEGATIVE) Urine RBC None seen (0-2) #/HPF Urine WBC None seen (NONE SEEN) #/HPF Ur Squamous Epith Cells Rare (NONE/RARE) #/LPF Urine Crystals None seen (None Seen) #/HPF Urine Bacteria Trace A (NONE SEEN) #/HPF Urine Casts None seen (NONE SEEN) #/LPF Urine Mucus Trace A (NONE SEEN) Ur Culture Indicated? No Influenza Type A Ag Negative Influenza Type B Ag Negative SARS-CoV-2 Ag (CV2AG) Negative (NEGATIVE) Imaging Data Chest x-ray: Radiologist's impression: ITS Impressions Chest X-Ray 01/05/25 11:25 IMPRESSION: MINOR NONSPECIFIC INTERSTITIAL CHANGE. NO OTHER ACUTE FINDINGS Impression dictated by: Edilia Esparza M.D. 01/05/2025 12:05 PM Dictation Location: [place] [address] Electronically authenticated by: [id number] Y Date: 01/05/2025 12:05 Discharge Plan Discharge Chief Complaint: Fever Clinical Impression: Viral illness Patient Disposition: Home, Self-Care Time of Disposition Decision: 12:38 Condition: Good Mode of Transportation: Private Vehicle Prescriptions / Home Meds: No Action metformin 500 mg tablet 1,000 mg PO DAILY atorvastatin 20 mg tablet 20 mg PO DAILY Print Language: Australian Instructions: Viral Syndrome (ED) Referrals: KUNAL MCLEOD [Primary Care Provider, Internal Medicine] - 1 week
[2025-01-05] MEDS: ACETAMINOPHEN 325 MG TABLET 650 MG PO (09:47)
[2025-01-05] MEDS: 0.9 % SODIUM CHLORIDE 1,000 ML 1000 ML IV (09:47)
[2025-01-05 09:58] VITALS: O2SAT 98
[2025-01-05 09:59] LABS: Hematocrit 45.9 % (42.0-54.0); Hemoglobin 15.9 g/dL (14.0-18.0); Immature Granulocytes Abs Auto 0.02 10^3/uL (0.00-0.03); Immature Granulocytes Pct Auto 0.2 % (0.0-0.5); Lymphocytes Absolute Auto 1.1 10^3/uL (1.2-3.8); Mean Corpuscular HGB Conc 34.6 g/dL (29.9-35.2); Mean Corpuscular Hemoglobin 30.1 pg (25.9-34.0); Mean Corpuscular Volume 86.8 fL (80.0-94.0); Platelet Count 179 10^3/uL (150-450); Red Blood Count 5.29 10^6/uL (4.70-6.10); White Blood Count 9.4 10^3/uL (4.0-11.0)
[2025-01-05 10:05] LABS: Anion Gap 13.2; Blood Urea Nitrogen 11.0 mg/dL (7.0-18.0); Calcium 8.8 mg/dL (8.5-10.1); Carbon Dioxide 26.0 mmol/L (21.0-32.0); Chloride 101 mmol/L (98-107); Estimated GFR (African America >60 (>=60 mL/min/1.73m^2); Estimated GFR (Non-African Ame 51 (>=60 mL/min/1.73m^2); Glucose 142 mg/dL (74-106); Potassium 4.2 mmol/L (3.5-5.1); Sodium 136 mmol/L (136-145)
[2025-01-05 10:09] LABS: SARS-CoV-2 Ag NEGATIVE (NEGATIVE)
[2025-01-05 10:56] VITALS: TEMP 39.5
[2025-01-05] MEDS: IBUPROFEN 400 MG TABLET 800 MG PO (11:01)
[2025-01-05 11:09] LABS: Glucose Urine UA NEGATIVE (NEGATIVE)
[2025-01-05 11:22] LABS: Cast Seen? NONE SEEN #/LPF (NONE SEEN); Crystals Seen? None Seen #/HPF (None Seen); Urine Culture Indicated NO
--- NOTE | 2025-01-05 11:25 | XR_ITS ---
The [address] [address] Patient Name: LATISHA SOLORZANO MRN: [id number] date: 1980 Sex: M Assigned Patient Location: ER Current Patient Location: ER Accession/Order Number: [id number] Exam Date: 01/05/2025 11:20 Report Date: 01/05/2025 12:05 At the request of: KELLIE KHALIL MD Procedure: XR chest 1V PORTABLE ERECT CHEST 1107 hours CLINICAL HISTORY: Fever for the past 2 days. Tobacco use. COMPARISON: 01/31/2024 Evaluation is slightly limited by large body habitus. The heart is within normal limits. There is mild nonspecific coarsening of interstitial markings. No focal consolidation is noted. There is no effusion or pneumothorax. The osseous structures are intact. XR/XR chest 1V IMPRESSION: MINOR NONSPECIFIC INTERSTITIAL CHANGE. NO OTHER ACUTE FINDINGS Impression dictated by: Edilia Esparza M.D. 01/05/2025 12:05 PM Dictation Location: [place] [address] Electronically authenticated by: [id number] Y Date: 01/05/2025 12:05
[2025-01-05 12:05] VITALS: BP 132/93; PULSE 117; TEMP 38.1; O2SAT 98
== END 2025-01-05 13:01 | disposition home or self-care (01) ==
PROVIDERS: Emergency Provider Emergency Medicine; PCP Internal Medicine
DX: B34.9 Viral infection, unspecified (principal); R50.9 Fever, unspecified
CPT/HCPCS: 36415; 71045; 80048; 81001; 85025; 87804; 87811; 99284